=== PATIENT | male | born 2000 | race Caucasian/White ===

== ENCOUNTER 2020-09-06 10:26 | Inpatient (IN) | payer OTHER, SELFPAY ==
--- NOTE | ~2020-09-06 | CT_ITS ---
EXAMINATION: CT abdomen pelvis w con DATE: 09/06/2020 11:23 INDICATION: Right lower quadrant abdominal pain TECHNIQUE: Computed tomography (CT) of the abdomen and pelvis was performed with 100 mL Omnipaque-350 intravenous contrast. Automated exposure control and iterative reconstruction technique were employe d. The dose-length product was 341.42 mGy-cm. COMPARISON: None FINDINGS: Lung bases are clear. Heart size is normal. No pericardial or pleural effusion. Liver, gallbladder, s pleen, pancreas, bilateral adrenal glands and kidneys are normal. There is dilation of the ileum whic h measures up to maximal diameter 4.7 cm immediately proximal to a stricture involving the 12 cm carter th of the terminal ileum where there is prominent wall thickening and surrounding inflammatory strand ing likely representing Crohn's disease with secondary ileus and/or partial obstruction. Normal appen mary alice. Colon is unremarkable. Normal decompressed bladder. Small amount of likely reactive ascites in t he deep pelvis. No abscess or free intraperitoneal gas. Mild likely reactive mesenteric lymphadenopat hy. Small sclerotic bone island at the right ilium and likely benign small lucent lesion with periphe ral sclerotic margin at the lateral aspect of the left femoral head. IMPRESSION: 1. Terminal ileitis suspicious for Crohn's disease with secondary small bowel ileus and/or partial ob struction. 2. Small amount of likely reactive ascites in the pelvis. Reviewed, dictated and finalized at location A. ION HOUSEKEEPER IMPRESSION: 1. Terminal ileitis suspicious for Crohn's disease with secondary small bowel i leus and/or partial obstruction. 2. Small amount of likely reactive ascites in the pelvis.
--- NOTE | ~2020-09-06 | XR_ITS ---
EXAMINATION: XR abdomen obstructive series DATE: 09/07/2020 08:56 INDICATION: Partial small bowel obstruction. TECHNIQUE: Upright and supine views of the abdomen were obtained. COMPARISON: CT abdomen and pelvis 09/06/2020 FINDINGS: There are multiple dilated loops of small bowel. There is a large volume of stool in the co lauren, which is normal in caliber. No free intraperitoneal gas. IMPRESSION: 1. Dilated small bowel, consistent with small bowel obstruction. Reviewed, dictated and finalized at location B. RHAND
--- NOTE | ~2020-09-06 | XR_ITS ---
EXAMINATION: XR sm bowel follow through WS EXAM DATE: 09/08/2020 14:23 INDICATION: Crohn's disease. Ileitis. TECHNIQUE: [employer] Laboratory Assistant radiograph was acquired. Small bowel series was performed with water-soluble Omnip aque solution solution. Spot images of the terminal ileum were acquired. The DAP for this procedure was 26 Gycm2. Correlation is made to abdomen pelvis CT from 09/05/2020. FINDINGS: On the 30 minute image there is opacification of jejunum and portion of the ileum. The ileu m is moderately distended. On one hour image, further opacification of the ileum with multiple region s of mucosal irregularity. Contrast reached the ascending colon shortly thereafter, normal transit ti me. The terminal ileum has straightening and loss of normal rugal fold pattern consistent with termin al ileitis, provided history of Crohn's disease. IMPRESSION: Terminal ileitis, moderately distended ileum with mucosal irregularities. Appearance con sistent with Crohn's disease. Normal transit time 1-1.5 hours. Reviewed, dictated and finalized at location A. CONDITIONING INSULATION INSTALLER IMPRESSION: Terminal ileitis, moderately distended ileum with mucosal irregula rities. Appearance consistent with Crohn's disease. Normal transit time 1-1.5 h ours.
[2020-09-06 10:40] VITALS: BP 141/98; PULSE 112; RESP 18; TEMP 36.4; O2SAT 96
[2020-09-06 10:58] LABS: Basophils Percent Auto 0.2 % (0.2-1.2); Eosinophils Percent Auto 0.4 % (0-4.4); Hematocrit 39.9 % (42.0-52.0); Hemoglobin 13.1 g/dL (14.0-18.0); Immature Granulocyte Absolute 0.03 K/mm3 (0.00-0.031); Immature Granulocyte Percent A 0.3 % (0-0.5); Lymphocytes Absolute Auto 0.71 K/mm3 (0.9-3.2); Lymphocytes Percent Auto 7.6 % (18.3-44.2); Mean Corpuscular HGB Conc 32.8 g/dl (32-36); Mean Corpuscular Hemoglobin 27.1 pg (26-34); Mean Corpuscular Volume 82.4 fl (80-100); Monocytes Absolute Auto 1.5 K/mm3 (0.1-0.6); Monocytes Percent Auto 15.7 % (2.6-8.5); Neutrophils Absolute Auto 7.1 K/mm3 (1.3-6.7); Neutrophils Percent Auto 75.8 % (45.5-73.1); Platelet Count Result 369 k/mm3 (150-375); Red Blood Count 4.84 M/mm3 (4.6-6.20); Red Cell Distribution Width 15.7 % (11.5-14.5); White Blood Count 9.4 K/mm3 (4.5-10.0)
--- NOTE | 2020-09-06 10:58 | ED.ABDPAIN ---
HPI - Abdominal Pain General Chief Complaint: Abdominal Pain Stated Complaint: ABD Pain, Vomiting Time Seen by Provider: 09/06/20 10:35 Source: patient Mode of arrival: ambulatory Limitations: no limitations History of Present Illness HPI narrative: Patient is 20 year-old male complaining of right lower quadrant pain that started back at June have been intermittent, but became persistent last night up until this morning now accompanied by nausea vomiting. Patient states his pain is an 8 out of 10, nonradiating, sharp. Related Data Allergies Allergy/AdvReac Type Severity Reaction Status Date / Time amoxicillin Allergy Unknown Unknown Verified 09/06/20 11:59 [email or web address] Allergy Unknown Unknown Verified 09/06/20 11:59 Review of Systems Review of Systems: All systems reviewed & are unremarkable except as noted in HPI and below Constitutional: Constitutional: Denies body ache(s), Denies chills, Denies excessive sweating, Denies fatigue, Denies fever(s), Denies headache(s), Denies lethargy, Denies malaise, Denies weakness and Denies weight loss Eyes: Eyes: Denies blurry vision, Denies change in vision and Denies loss of vision ENT: Denies dizziness, Denies ear discharge, Denies headache(s), Denies lip swelling, Denies epistaxis, Denies nasal congestion, Denies neck pain, Denies throat swelling and Denies tongue swelling Cardiovascular: Cardiovascular: Denies chest pain, Denies chest pain at rest, Denies chest pain with activity, Denies diaphoresis, Denies rapid heart rate, Denies edema, Denies irregular heart rhythm, Denies lightheadedness, Denies palpitations, Denies dyspnea and Denies dyspnea on exertion Respiratory: Respiratory: Denies chest congestion, Denies cough, Denies hemoptysis, Denies dyspnea and Denies dyspnea on exertion Gastrointestinal: Gastrointestinal: Denies melena, Denies hematochezia, Denies diarrhea and Denies hematemesis Musculoskeletal: Musculoskeletal: Denies abnormal gait, Denies deformity, Denies joint swelling, Denies limited range of motion, Denies neck pain and Denies numbness Neurologic: Denies Abnormal speech present, Denies abnormal gait, Denies confusion, Denies dizziness, Denies headache(s), Denies focal weakness, Denies loss of vision, Denies numbness, Denies Other visual disturbances, Denies Sensory deficit (Neuro) and Denies weakness Psychiatric: Psychiatric: Denies confusion, Denies depression, Denies auditory hallucinations, Denies homicidal ideation and Denies suicidal ideation Endocrine: Endocrine: Denies cold intolerance, Denies excessive sweating, Denies fatigue, Denies heat intolerance and Denies palpitations Hematologic/Lymphatic: Hematologic/Lymphatic: Denies easy bleeding and Denies easy bruising Allergic/Immunologic: Allergic/Immunologic: Denies lip swelling, Denies throat swelling and Denies tongue swelling PMFSH Family History Family History Other Asthma Depression Family history of alcoholism Family history of bipolar disorder Family history of thyroid disease Social History Social History Smoking status: Never smoker Second hand tobacco smoke exposure: No Alcohol intake: current Gender identity (if verbalized by the patient): Male Exam Const: General: cooperative, healthy appearing, comfortable, no acute distress, well developed, alert and awake; No confusion Orientation/consciousness: oriented to person, oriented to place, oriented to time, patient oriented x3 and No confusion Limitations: no limitations HENMT: Head: normal to inspection, normocephalic and atraumatic Ears: hearing grossly normal bilaterally, TM normal on the right and TM normal on the left General nose exam: Normal external nose present, Normal nares present and No nasal discharge present Face and sinus: normal facial exam Mouth: Yes Normal oral and palatal mucosa present, Y
[2020-09-06 11:09] LABS: Alanine Aminotransferase 21 U/L (4-50); Albumin Level 4.1 g/dL (3.5-5.1); Alkaline Phosphatase 88 U/L (38-126); Anion Gap 12 mmol/L (8-16); Aspartate Amino Transferase 22 U/L (17-59); Blood Urea Nitrogen 17 mg/dL (9-20); Calcium 9.4 mg/dL (8.4-10.2); Carbon Dioxide 27 mmol/L (22-30); Chloride 101 mmol/L (98-107); Estimated CRCL calculation 145 ml/min; Estimated Glomerular Filt Rate > 60; Glucose 140 mg/dL (75-110); Lipase 24 U/L (23-300); Sodium 140 mmol/L (137-145)
[2020-09-06 11:17] LABS: Add Urine Microscopic? YES; Appearance Urine Clear (Clear); Bilirubin Urine 1+ (Negative); Blood Urine Negative (Negative); Color Urine Yellow (Yellow); Glucose Urine UA Negative (Negative); Ketones Urine 2+ mg/dL (Negative); Leukocyte Esterase Ur Negative LEU/UL (Negative); Mucus Urine Rare /lpf; Nitrate Urine Negative (Negative); Protein Urine 2+ mg/dL (Negative); WBC Urine 0-3 /hpf
[2020-09-06 11:21] LABS: Specific Grav Ur 1.033 (1.001-1.035)
[2020-09-06] MEDS: ONDANSETRON INJ 4 MG/2 ML VIAL IV PUSH ×3 (11:27→21:28)
[2020-09-06] MEDS: SODIUM CHLORIDE 0.9% IV 1,000 ML 999 ML IV CONT (11:27)
[2020-09-06 12:49] VITALS: BP 136/84; PULSE 94; RESP 17; O2SAT 98
[2020-09-06] MEDS: MORPHINE SULFATE (*CRX) 2 MG/ML INJ IV PUSH ×3 (12:49→21:29)
--- NOTE | 2020-09-06 13:48 | PM.IMHP ---
H&P: HPI History of Present Illness Date/Time: 09/06/20 13:48 Chief complaint: Terminal Ileitis/RLQ Pain/N/V Narrative: Joni Pretty is a 20 year old male who has no prior history of colitis. The patient has some acid reflux and was recently placed on pantoprazole. The patient does do with constipation on a daily basis and takes MiraLax and that does not always help either. Has not had any colonoscopies in the past. He does not have a GI specialist. The patient stated he was post to have workup and have some lab work but never did follow up with it. The patient is complaining of right lower quadrant pain that started back in June has been intermittent but became worse last night he was up all night till this morning he had some nausea and vomiting. His pain is 8/10. He has had no fever chills or cough. H&H is 13.[address] was read as terminal ileitis suspicious for Crohn's disease with secondary small-bowel ileus endorse partial obstruction. Small amount of likely reactive ascites in the pelvis. The only medication the patient has been on his Protonix. Consulted. Patient has been made NPO. He was given morphine in the emergency for the discomfort. On IV fluids, Zofran and morphine in the emergency room. Patient is being admitted as observation to medical floor date of service 09/06/2020. Review of Systems Review of Systems: All systems reviewed & are unremarkable except as noted in HPI and below Constitutional: Constitutional: Reports as per HPI and Reports no additional constitutional complaints Eyes: Eyes: Reports as per HPI and Reports no additional eye complaints ENT: Reports system reviewed and no additional complaints, except as documented and Reports Normal hearing present Cardiovascular: Cardiovascular: Reports no additional cardiovascular complaints Respiratory: Respiratory: Reports no additional respiratory complaints and Reports no additional respiratory complaints Gastrointestinal: Gastrointestinal: Reports as per HPI and Reports no additional gastrointestinal complaints Musculoskeletal: Musculoskeletal: Reports no additional musculoskeletal complaints Integumentary/Breasts: Skin/Breast: Reports system reviewed and no additional complaints, except as docu and Reports as per HPI Neurologic: Reports system reviewed and no additional complaints, except as documented, Reports as per HPI and Reports Normal hearing present Psychiatric: Psychiatric: Reports no additional psychiatric complaints and Reports as per HPI Endocrine: Endocrine: Reports no additional endocrine complaints Hematologic/Lymphatic: Hematologic/Lymphatic: Reports no additional hematologic/lymphatic complaints Allergic/Immunologic: Allergic/Immunologic: Reports no additional allergic/immunologic complaints PMFSH Past Medical History Medical History (Updated 09/06/20 @ 14:16 by Alma Loera NP) Chronic GERD Constipation Surgical History Surgical History (Updated 09/06/20 @ 14:11 by Alma Loera NP) Hx of tympanostomy tubes Family History Family History (Updated 09/06/20 @ 14:11 by Alma Loera NP) Mother Hypothyroidism Other Asthma Depression Family history of alcoholism Family history of bipolar disorder Family history of thyroid disease Social History Social History (Updated 09/06/20 @ 14:12 by Alma Loera NP) Social History: Patient is single no children. He lives with his parents. He desires to have his mom is a durable power workers compensation attorney for healthcare. The patient is a full code. Lifelong nonsmoker. No marijuana or illicit drugs. No alcohol use. He works at [employer]. Smoking status: Never smoker Second hand tobacco smoke exposure: No Alcohol intake: current Substance use: never Living arrangements: with family Occupation/Education: occupation Gender identity (if verbalized by the patient): Male Meds Home Medications and Al
[2020-09-06] MEDS: LACTATED RINGERS 1,000 ML 125 ML IV CONT ×2 (14:21→23:45)
[2020-09-06] MEDS: methylPREDNISolone SOD SUCC 125 MG VIAL 60 MG IV PUSH (14:22)
[2020-09-06 14:30] VITALS: BP 114/69; PULSE 106; RESP 16; TEMP 37.4; O2SAT 99; BMI 22.8
--- NOTE | 2020-09-06 14:30 | ADMGEN ---
This patient, Joni Pretty, was admitted to Medical Room 344-01. Patient/family oriented to hospital policies and general routines including ID bracelet, bed and alarms, visiting hours, pain management, procedures, bathroom and other care routines, personal items, smoking policy, room service/diet, and visiting hours. Reviewed MD orders and plan of care. Information on how to activate the Rapid Response Team has been discussed. Patient/Family are encouraged to report perceived risks to care and to ask questions if they do not understand what they are told or what they should do.
[2020-09-06] MEDS: metroNIDAZOLE 500 MG/ISO 100ML 500 MG/100 ML BAG 100 MG IVPB ×2 (15:11→22:36)
--- NOTE | 2020-09-06 16:41 | WPDGICN ---
Assessment and Plan Assessment and plan (1) Terminal ileitis: Qualifiers: Digestive disease complication type: unspecified complication Qualified Code(s): K50.019 - Crohn's disease of small intestine with unspecified complications Code(s): K50.00 - Crohn's disease of small intestine without complications Status: Acute Assessment and Plan: possible Crohns', will get inflammatory markers colonoscopy tomorrow to confirm diagnosis started empirically on iv steroid and flagyl, doing better now will get serology for TB and HBV status, may need later on biologic treatment, also will get TPMT activity (in case we use imuran) (2) Acute right lower quadrant pain: Code(s): R10.31 - Right lower quadrant pain Status: Acute (3) Partial small bowel obstruction: Code(s): K56.600 - Partial intestinal obstruction, unspecified as to cause Status: Acute Assessment and Plan: no more nausea or vomiting, continue with medical treatment and reassess (4) Chronic GERD: Code(s): K21.9 - Gastro-esophageal reflux disease without esophagitis Status: Chronic Assessment and Plan: he has been on ppi before (5) Constipation: Code(s): K59.00 - Constipation, unspecified Status: Chronic GI Consult Note Consult date/time: 09/06/20 16:41 Reason for consult: abdominal pain, abnormal TI by CT scan HPI: Joni Pretty is a 20 year old male with history of reflux for which he has taken protonix. He also has chronic constipation for years using miralax daily, will have one BM a day. He started having right lower quadrant pain back in June, intermittent but became worse last night and this time was associated with nausea and vomiting. His pain was 8/10. He has had no fever chills or cough. Blood work showed H&H is 13.1 and 39.3, normal liver enzymes. Abdominal CT was read as terminal ileitis suspicious for Crohn's disease with secondary small-bowel ileus endorse partial obstruction. Never had a colonoscopy. Mother is at bedside. Review of Systems Constitutional: Constitutional: Denies headache(s) and Denies weakness Eyes: Eyes: Denies blurry vision ENT: Reports Normal hearing present, Denies headache(s) and Denies neck pain Cardiovascular: Cardiovascular: Denies chest pain and Denies dyspnea Respiratory: Respiratory: Denies dyspnea Gastrointestinal: Gastrointestinal: Reports no additional gastrointestinal complaints Genitourinary: Genitourinary: Denies dysuria Musculoskeletal: Musculoskeletal: Denies neck pain Integumentary/Breasts: Skin/Breast: Denies dry skin Neurologic: Reports Normal hearing present, Denies headache(s) and Denies weakness Psychiatric: Psychiatric: Denies anxiety Endocrine: Endocrine: Denies change in body appearance Hematologic/Lymphatic: Hematologic/Lymphatic: Denies easy bleeding Allergic/Immunologic: Allergic/Immunologic: Denies urticaria PMFSH Past Medical History Medical History (Updated 09/06/20 @ 14:16 by Alma Loera NP) Chronic GERD Constipation Surgical History Surgical History (Updated 09/06/20 @ 14:11 by Alma Loera NP) Hx of tympanostomy tubes Family History Family History (Updated 09/06/20 @ 14:11 by Alma Loera NP) Mother Hypothyroidism Other Asthma Depression Family history of alcoholism Family history of bipolar disorder Family history of thyroid disease Social History Social History (Updated 09/06/20 @ 14:12 by Alma Loera NP) Social History: Patient is single no children. He lives with his parents. He desires to have his mom is a durable power testing projects administrator for healthcare. The patient is a full code. Lifelong nonsmoker. No marijuana or illicit drugs. No alcohol use. He works at [employer]. Smoking status: Never smoker Second hand tobacco smoke exposure: No Alcohol intake: never Substance use: never Substance use type: does n
[2020-09-06] MEDS: BISACODYL 5 MG TABLET EC 20 MG PO (17:39)
[2020-09-06] MEDS: PEG (High)/E-LYTE SOLN 4,000 ML BTL 4000 ML PO (17:39)
[2020-09-06] MEDS: FAMOTIDINE 20 MG/2 ML VIAL IV PUSH (20:22)
[2020-09-06 20:24] VITALS: BP 129/70; PULSE 89; RESP 14; TEMP 37; O2SAT 97
[2020-09-06] MEDS: MAGNESIUM CITRATE 300 ML BTL PO (23:31)
[2020-09-07] MEDS: ONDANSETRON INJ 4 MG/2 ML VIAL IV PUSH (04:16)
[2020-09-07] MEDS: MORPHINE SULFATE (*CRX) 2 MG/ML INJ IV PUSH (05:31)
[2020-09-07] MEDS: metroNIDAZOLE 500 MG/ISO 100ML 500 MG/100 ML BAG 100 MG IVPB ×3 (05:32→22:36)
[2020-09-07 05:48] VITALS: BP 120/73; PULSE 78; RESP 14; TEMP 36.3; O2SAT 100
[2020-09-07 05:52] LABS: Hematocrit 38.1 % (42.0-52.0); Hemoglobin 12.4 g/dL (14.0-18.0); Mean Corpuscular HGB Conc 32.5 g/dl (32-36); Mean Corpuscular Hemoglobin 26.3 pg (26-34); Mean Corpuscular Volume 80.9 fl (80-100); Mean Platelet Volume 9.2 fl (7.4-10.4); Platelet Count Result 425 k/mm3 (150-375); Red Blood Count 4.71 M/mm3 (4.6-6.20); Red Cell Distribution Width 15.6 % (11.5-14.5); White Blood Count 8.1 K/mm3 (4.5-10.0)
[2020-09-07 06:24] LABS: Alanine Aminotransferase 19 U/L (4-50); Albumin Level 3.8 g/dL (3.5-5.1); Alkaline Phosphatase 80 U/L (38-126); Anion Gap 12 mmol/L (8-16); Aspartate Amino Transferase 20 U/L (17-59); Bilirubin,Total 0.9 mg/dL (0.2-1.3); Blood Urea Nitrogen 18 mg/dL (9-20); Calcium 9.2 mg/dL (8.4-10.2); Carbon Dioxide 26 mmol/L (22-30); Chloride 100 mmol/L (98-107); Estimated CRCL calculation 166 ml/min; Estimated Glomerular Filt Rate > 60; Glucose 144 mg/dL (75-110); Lipase 16 U/L (23-300); Sodium 138 mmol/L (137-145)
[2020-09-07 06:51] LABS: Hepatitis B Surface Antigen Negative (Negative)
[2020-09-07 07:09] LABS: Hepatitis B Surface Anti Res Negative
[2020-09-07 08:11] LABS: CRP 13.8 mg/dL (<1.0)
[2020-09-07 08:52] LABS: Band Neutrophils Percent 40 % (0-6); Lymphocytes Absolute Manual 1.05 K/mm3 (1.1-4.5); Metamyelocytes Percent 5 %; Monocytes Absolute Manual 0.72 K/mm3 (0.1-0.90); Monocytes Percent Manual 9 % (3-9); Neutrophils Absolute Manual 5.91 K/mm3 (1.3-6.7); Neutrophils Percent Manual 33 % (46-73); Total Cells Counted 100
[2020-09-07] MEDS: FAMOTIDINE 20 MG/2 ML VIAL IV PUSH ×2 (09:05→20:59)
[2020-09-07] MEDS: methylPREDNISolone SOD SUCC 40 MG VIAL IV PUSH ×3 (09:06→22:36)
[2020-09-07] MEDS: LACTATED RINGERS 1,000 ML 125 ML IV CONT ×2 (09:09→17:38)
[2020-09-07 09:37] LABS: Erythrocyte Sedimentation Rate 32 mm/hr (0-20)
--- NOTE | 2020-09-07 12:00 | PM.CNGS ---
Assessment and Plan Assessment and plan (1) Partial small bowel obstruction: Code(s): K56.600 - Partial intestinal obstruction, unspecified as to cause Status: Acute Assessment and Plan: CT scan reviewed and discussed with the patient in detail. The CT suggests terminal ileitis causing a possible partial small bowel obstruction versus an ileus. The patient was not tolerating the bowel prep for his colonoscopy and had multiple episodes of vomiting. Abdominal films this morning showed multiple loops of dilated small bowel, suggesting a small bowel obstruction. He has since had three bowel movements and seems to be improving. Nausea has subsided and his abdominal exam is benign at this time. We will hold off on NG tube placement to see how he progresses. If he begins vomiting again, we could place an NG tube for decompression. Continue bowel rest, IV fluids, analgesics, and antiemetics. Continue IV steroids and IV antibiotics for the terminal ileitis as discussed below. We will continue to follow the patient with serial abdominal exams and imaging. (2) Terminal ileitis: Qualifiers: Digestive disease complication type: unspecified complication Qualified Code(s): K50.019 - Crohn's disease of small intestine with unspecified complications Code(s): K50.00 - Crohn's disease of small intestine without complications Status: Acute Assessment and Plan: CT suggests a stricture involving a 12 cm length of the terminal ileum where there is prominent wall thickening and surrounding inflammatory stranding causing #1 above. This is suspicious for Crohn's disease. GI has been consulted and ordered inflammatory markers. He is currently on IV steroids and IV antibiotics with clinical improvement. Awaiting timing of colonoscopy depending on how he progresses and is able to tolerate the bowel prep. (3) Constipation: Code(s): K59.00 - Constipation, unspecified Status: Chronic Assessment and Plan: Takes Miralax daily at home for this. Additional Plan Discussed the patient's case and plan of care with Dr. Beatty. Thank you for allowing us to see the patient in consultation and we will continue to follow along with you. History of Present Illness Consult details Consult date: 09/07/20 Reason for consult: other (Terminal ileitis with possible small bowel obstruction) Requesting physician: Norman Ochoa MD Narrative: This is a 20-year-old male who presented to the emergency department with complaints of abdominal pain and vomiting. The patient reports an onset of mild right lower quadrant abdominal pain starting in late June of 2020. He states he would also have bloating associated with the pain at times that resolved spontaneously. This abdominal pain would come and go about 1-2 times per week. He then went to see his primary care physician in July due to the persistent abdominal pain, and they prescribed him Protonix. He has not noticed a difference in his symptoms since starting this. He denies ever having this abdominal pain prior to June. 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 Shortly after, he began vomiting. He had multiple emesis at home and states the pain continued to worsen. Due to the unrelenting abdominal pain, he presented to the emergency department. CT scan of the abdomen and pelvis showed terminal ileitis, suspicious for Crohn's disease, with a secondary small bowel ileus or partial small bowel obstruction. Also noted was a small amount of likely reactive ascites. In the ED, he was tachycardic with a heart rate of 112, which has since resolved. The patient was admitted to the Hospitalist service and GI was consulted. The patient was started on IV steroids and IV Flagyl and apparently had an initial improvement in his symptoms. The patient began drinking bowel prep yesterday to plan for a
--- NOTE | 2020-09-07 13:31 | PM.IMPN ---
Progress Note: A&P Assessment and Plan (1) Terminal ileitis: Qualifiers: Digestive disease complication type: unspecified complication Qualified Code(s): K50.019 - Crohn's disease of small intestine with unspecified complications Code(s): K50.00 - Crohn's disease of small intestine without complications Status: Acute Assessment and Plan: GI has been consulted. This could possibly be Crohn's CT show terminal ileitis. NPO, IV FLUIDS, IV FLAGYL IV STEROIDS (2) Partial small bowel obstruction: Code(s): K56.600 - Partial intestinal obstruction, unspecified as to cause Status: Acute Assessment and Plan: GI and surgery rounding. Continue with pain medication and hydration. (3) Chronic GERD: Code(s): K21.9 - Gastro-esophageal reflux disease without esophagitis Status: Chronic Assessment and Plan: IV Pepcid (4) Constipation: Code(s): K59.00 - Constipation, unspecified Status: Chronic Assessment and Plan: Could be related to possible Crohn's disease or inflammatory bowel disease. Subjective Date/time seen: 09/07/20 13:31 Interval history: Joni Pretty is a 20 year old male who has no prior history of colitis. Found to have terminal ileitis suspicious for Crohn's disease with secondary small-bowel ileus endorse partial obstruction on CT scan. Pt was not able to tolerate bowel prep could not have colonscopy. GI and surgery on board. Pt still having diarrhea and abdominal cramps and nausea/ vomiting. Review of Systems Review of Systems: All systems reviewed & are unremarkable except as noted in HPI and below Exam Const: General: alert, awake and other (unwell appearing ) Nutritional Appearance: thin Orientation/consciousness: oriented to person, oriented to place, oriented to time and patient oriented x3 Limitations: no limitations Chest: Chest palpation & inspection: normal inspection of the chest Resp: Effort & Inspection: normal respiratory effort Auscultation: clear to auscultation bilaterally Percussion: percussion normal Cardio: Palpation: normal PMI Rate: regular rate Rhythm: regular rhythm Heart sounds: S1 normal heart sound present and S2 normal heart sound present Peripheral pulses: Peripheral pulses 2+ throughout GI: Inspection: normal to inspection GI Palp: Yes abdominal tenderness (left lower quardant cramps ) Back/Spine/Pelvis: Cervical Spine: cervical ROM normal Thoracic/Lumbar Spine: thoracic and lumbar spine normal to inspection Skin: General skin exam: normal color Lesions: no lesions Rashes: no rashes Trauma: no lacerations or abrasions Wounds: no wounds Hair: normal Nails: normal Objective Data Vital Signs Vital Signs: Vital Signs - 24 hr 09/06/20 14:30 09/06/20 20:24 09/07/20 05:48 Temperature 37.4 C 37.0 C 36.3 C L Pulse Rate 106 H 89 78 Respiratory Rate 16 14 14 Blood Pressure 114/69 129/70 120/73 Pulse Oximetry 99 97 100 Intake/Output Intake/Output: Intake & Output 09/04/20 09/05/20 09/06/20 09/07/20 23:59 23:59 23:59 23:59 Intake Total 2800 1400 Output Total 800 1200 Balance 2000 200 Meds/Results Medications: Active Medications Generic Name Dose Route Start Last Admin Trade Name Freq PRN Reason Stop Dose Admin Famotidine 20 mg 09/06/20 21:00 09/07/20 09:05 Famotidine 20 Mg/2 Ml Vial IV PUSH 20 mg Q12HR STAN Administration Lactated Ringer's 1,000 mls @ 125 mls/hr 09/06/20 12:45 09/07/20 09:09 Lr - Lactated Ringers Iv IV CONT 125 mls/hr .Q8H STAN Administration Metronidazole 500 mg in 100 mls @ 100 mls/hr 09/06/20 14:00 09/07/20 06:32 Flagyl 500 Mg/Iso Soln 100 Ml IVPB Infused Q8HR STAN Infusion Acetaminophen 1,000 mg in 100 mls @ 400 mls/hr 09/06/20 13:50 09/07/20 07:37 Ofirmev 1,000 Mg Ivpb IVPB 09/07/20 13:51 Infused Q6H PRN Infusion Mild Pain (1-3) or Fever Methylprednisolone Sodium Succinate 40 mg 09/07/20
[2020-09-07 14:00] VITALS: BP 106/59; PULSE 61; RESP 16; TEMP 36.2; O2SAT 100
[2020-09-07] MEDS: PEG (High)/E-LYTE SOLN 4,000 ML BTL 4000 ML PO (16:00)
--- NOTE | 2020-09-07 16:52 | WPDGIPROGNO ---
Progress Note: A&P Assessment and Plan (1) Terminal ileitis: Qualifiers: Digestive disease complication type: unspecified complication Qualified Code(s): K50.019 - Crohn's disease of small intestine with unspecified complications Code(s): K50.00 - Crohn's disease of small intestine without complications Status: Acute Assessment and Plan: plan colonoscopy tomorrow, will start drinking prep again tonight I increased dose of iv steroids, he is feeling better (2) Acute right lower quadrant pain: Code(s): R10.31 - Right lower quadrant pain Status: Acute (3) Partial small bowel obstruction: Code(s): K56.600 - Partial intestinal obstruction, unspecified as to cause Status: Acute Assessment and Plan: clinically better, surgery in the case Subjective Date/time seen: 09/07/20 16:52 Interval history: he was very nauseous last night after drinking bowel prep but today feeling much better, also started having loose stools about 5 with less abdominal pain. He is tolerating now liquid diet Review of Systems Review of Systems: All systems reviewed & are unremarkable except as noted in HPI and below Exam Const: General: comfortable and no acute distress HENMT: General nose exam: Normal nares present Eyes: General: appearance normal, both eyes and all related structures Neck: Neck: no JVD Resp: Auscultation: clear to auscultation bilaterally Cardio: Rate: regular rate Rhythm: regular rhythm GI: Inspection: non-distended GI Palp: Yes Soft to palpation, Yes Tenderness to palpation present (GI) (less tender today, no rebound) and No Guarding due to palpation present (GI) Auscultation: normal bowel sounds Skin: General skin exam: normal color Neuro: General: gait normal Speech: normal speech Extrem: General: normal to inspection Psych: Mental Status: mental status grossly normal Objective Data Vital Signs Vital Signs: Vital Signs - 24 hr 09/06/20 20:24 09/07/20 05:48 09/07/20 14:00 Temperature 98.6 F 97.3 F L 97.1 F L Pulse Rate 89 78 61 Respiratory Rate 14 14 16 Blood Pressure 129/70 120/73 106/59 L Pulse Oximetry 97 100 100 Intake/Output Intake/Output: Intake & Output 09/04/20 09/05/20 09/06/20 09/07/20 23:59 23:59 23:59 23:59 Intake Total 2800 1400 Output Total 800 1200 Balance 2000 200 Meds/Results Medications: Active Medications Generic Name Dose Route Start Last Admin Trade Name Mallory PRN Reason Stop Dose Admin Famotidine 20 mg 09/06/20 21:00 09/07/20 09:05 Famotidine 20 Mg/2 Ml Vial IV PUSH 20 mg Q12HR STAN Administration Lactated Ringer's 1,000 mls @ 125 mls/hr 09/06/20 12:45 09/07/20 09:09 Lr - Lactated Ringers Iv IV CONT 125 mls/hr .Q8H STAN Administration Metronidazole 500 mg in 100 mls @ 100 mls/hr 09/06/20 14:00 09/07/20 15:58 Flagyl 500 Mg/Iso Soln 100 Ml IVPB 100 mls/hr Q8HR STAN Administration Methylprednisolone Sodium Succinate 40 mg 09/07/20 06:00 09/07/20 16:00 Methylprednisolone Sod Succ 40 Mg Vial IV PUSH 40 mg Q8HR STAN Administration Morphine Sulfate 2 mg 09/06/20 13:46 09/07/20 05:31 Morphine Sulfate (*Crx) 2 Mg/Ml Inj IV PUSH 2 mg Q4H PRN Administration Pain Rated 7-10 Ondansetron HCl 4 mg 09/06/20 13:43 09/07/20 04:16 Ondansetron Inj 4 Mg/2 Ml Vial IV PUSH 4 mg Q6H PRN Administration Nausea And Vomiting Radiology Results: ITS Impressions Abdomen/Pelvis CT 09/06/20 11:24 IMPRESSION: 1. Terminal ileitis suspicious for Crohn's disease with secondary small bowel ileus and/or partial obstruction. 2. Small amount of likely reactive ascites in the pelvis. Abdomen X-Ray 09/07/20 09:01 IMPRESSION: 1. Dilated small bowel, consistent with small bowel obstruction. Labs Labs: Laboratory Results - last 24 hr 09/07/20 09/07/20 09/07/20 05:36 05:36 05:36 WBC 8.1 RBC 4.71 Hgb 12.4 L Hct 38.1 L
[2020-09-07 20:26] VITALS: BP 120/59; PULSE 75; RESP 12; TEMP 36.6; O2SAT 99
[2020-09-08] MEDS: LACTATED RINGERS 1,000 ML 125 ML IV CONT (02:15)
--- NOTE | 2020-09-08 04:41 | PC.NURSE ---
Multiple staff members have encouraged patient to drink bowel prep. However, patient still refusing for the most part. MD aware of situation.
[2020-09-08 06:00] VITALS: BP 104/50; PULSE 59; RESP 12; TEMP 36.4; O2SAT 100
[2020-09-08] MEDS: methylPREDNISolone SOD SUCC 40 MG VIAL IV PUSH ×3 (06:06→21:45)
[2020-09-08] MEDS: metroNIDAZOLE 500 MG/ISO 100ML 500 MG/100 ML BAG 100 MG IVPB ×3 (06:06→21:45)
--- NOTE | 2020-09-08 10:35 | WPDANESEPPF ---
Anes - Initial Pre Proc Eval Procedure: Operation Date: 09/08/20 11:00 Proposed Procedures p Colonoscopy - Norman Ochoa MD Date/Time: 09/08/20 10:35 Surgeon: Eamon Davenport MD Pre Op Diagnosis: Terminal Ileitis/RLQ Pain/N/V Patient Data Age: 20 Gender: M Height: 5 ft 9 in Weight: 70.307 kg Last Vital Signs Temp 36.4 C 09/08/20 06:00 Pulse 59 L 09/08/20 06:00 Resp 12 09/08/20 06:00 BP 104/50 L 09/08/20 06:00 Pulse Ox 100 09/08/20 06:00 Allergies Allergy/AdvReac Type Severity Reaction Status Date / Time amoxicillin Allergy Unknown Unknown Verified 09/06/20 15:28 cefdinir Allergy Unknown Unknown Verified 09/06/20 15:28 Home Medications Medication Instructions Recorded Confirmed Type pantoprazole 40 mg tablet,delayed 40 mg PO QAM #90 tablet 08/03/20 09/06/20 Rx release Patient hx anesthesia problems: none Family hx anesthesia problems: none PMFSH Past Medical History Medical History Chronic GERD Constipation Surgical History Surgical History Hx of tympanostomy tubes Family History Family History Mother Hypothyroidism Other Asthma Depression Family history of alcoholism Family history of bipolar disorder Family history of thyroid disease Social History Social History Social History: Patient is single no children. He lives with his parents. He desires to have his mom is a durable power assistant attorney general for healthcare. The patient is a full code. Lifelong nonsmoker. No marijuana or illicit drugs. No alcohol use. He works at an [employer]. Smoking status: Never smoker Second hand tobacco smoke exposure: No Alcohol intake: never Substance use: never Substance use type: does not use Living arrangements: with family Occupation/Education: occupation Gender identity (if verbalized by the patient): Male Spiritual care concerns: No Anes - Eval Final PreProcedure Day of Procedure 09/08/20 10:35 Patient weight: normal Heart: regular rate and rhythm Lungs: clear to auscultation Airway: Mallampati scale class II Neurological: alert and oriented Last oral intake: >/= 8 hours ASA classification: II Emergent: no Anesthetic plan: proceed Anesthesia type and monitoring: general GIVS and standard monitoring Informed Consent: The patient's anesthetic plan and its attendant risks and benefits were discussed with the patient/family/POA. Questions were solicited and answers provided to the satisfaction of the patient/family/POA.
[2020-09-08 10:45] VITALS: BP 126/68; PULSE 73; RESP 16; TEMP 36.6; O2SAT 96
[2020-09-08] MEDS: LACTATED RINGERS 1,000 ML 150 ML IV CONT (10:49)
[2020-09-08 11:30] VITALS: BP 84/32; PULSE 64; RESP 18; O2SAT 99
[2020-09-08 11:40] VITALS: BP 93/48; PULSE 58; RESP 19; O2SAT 99
[2020-09-08 11:50] VITALS: BP 105/59; PULSE 56; RESP 20; O2SAT 100
--- NOTE | 2020-09-08 12:20 | PM.IMPN ---
Progress Note: A&P Assessment and Plan (1) Terminal ileitis: Qualifiers: Digestive disease complication type: unspecified complication Qualified Code(s): K50.019 - Crohn's disease of small intestine with unspecified complications Code(s): K50.00 - Crohn's disease of small intestine without complications Status: Acute Assessment and Plan: GI has been consulted. colonscopy shows colitis. pT can eat continue, IV FLAGYL IV STEROIDS (2) Partial small bowel obstruction: Code(s): K56.600 - Partial intestinal obstruction, unspecified as to cause Status: Acute Assessment and Plan: GI and surgery rounding. Continue with pain medication and hydration. (3) Chronic GERD: Code(s): K21.9 - Gastro-esophageal reflux disease without esophagitis Status: Chronic Assessment and Plan: IV Pepcid (4) Constipation: Code(s): K59.00 - Constipation, unspecified Status: Chronic Assessment and Plan: Could be related to Crohn's disease . Subjective Date/time seen: 09/08/20 12:20 Interval history: Joni Pretty is a 20 year old male who has no prior history of colitis. Found to have terminal ileitis suspicious for Crohn's disease with secondary small-bowel ileus endorse partial obstruction on CT scan. Pt is going for colonscopy today showing crohns and hemorrhoids. Pt will need to continue iv steroids and needs a SBFT Review of Systems Review of Systems: All systems reviewed & are unremarkable except as noted in HPI and below Exam Const: General: alert, awake and other (unwell appearing ) Nutritional Appearance: thin Orientation/consciousness: oriented to person, oriented to place, oriented to time and patient oriented x3 Limitations: no limitations Chest: Chest palpation & inspection: normal inspection of the chest Resp: Effort & Inspection: normal respiratory effort Auscultation: clear to auscultation bilaterally Percussion: percussion normal Cardio: Palpation: normal PMI Rate: regular rate Rhythm: regular rhythm Heart sounds: S1 normal heart sound present and S2 normal heart sound present Peripheral pulses: Peripheral pulses 2+ throughout GI: Inspection: normal to inspection Back/Spine/Pelvis: Cervical Spine: cervical ROM normal Thoracic/Lumbar Spine: thoracic and lumbar spine normal to inspection Skin: General skin exam: normal color Lesions: no lesions Rashes: no rashes Trauma: no lacerations or abrasions Wounds: no wounds Hair: normal Nails: normal Neuro: General: oriented to person, oriented to place, oriented to time and patient oriented x3 Objective Data Vital Signs Vital Signs: Vital Signs - 24 hr 09/07/20 14:00 09/07/20 20:26 09/08/20 06:00 Temperature 36.2 C L 36.6 C 36.4 C Pulse Rate 61 75 59 L Respiratory Rate 16 12 12 Blood Pressure 106/59 L 120/59 L 104/50 L Pulse Oximetry 100 99 100 09/08/20 10:45 09/08/20 11:30 09/08/20 11:40 Temperature 36.6 C Pulse Rate 73 64 58 L Respiratory Rate 16 18 19 Blood Pressure 126/68 84/32 L 93/48 L Pulse Oximetry 96 99 99 09/08/20 11:50 Temperature Pulse Rate 56 L Respiratory Rate 20 Blood Pressure 105/59 L Pulse Oximetry 100 Intake/Output Intake/Output: Intake & Output 09/05/20 09/06/20 09/07/20 09/08/20 23:59 23:59 23:59 23:59 Intake Total 2800 3150 1400 Output Total 800 1200 1200 Balance 1999 1950 200 Meds/Results Medications: Active Medications Generic Name Dose Route Start Last Admin Trade Name Freq PRN Reason Stop Dose Admin Famotidine 20 mg 09/06/20 21:00 09/07/20 20:59 Famotidine 20 Mg/2 Ml Vial IV PUSH 20 mg Q12HR STAN Administration Lactated Ringer's 1,000 mls @ 125 mls/hr 09/06/20 12:45 09/08/20 02:15 Lr - Lactated Ringers Iv IV CONT 125 mls/hr .Q8H STAN Administration Metronidazole 500 mg in 100 mls @ 100 mls/hr 09/06/20 14:00 09/08/20 07:06 Flagyl 500 Mg/Iso Soln 100 Ml IVPB Infused Q8HR STAN I
--- NOTE | 2020-09-08 15:26 | PM.PNGS ---
Progress Note: A&P Assessment and Plan (1) Partial small bowel obstruction: Code(s): K56.600 - Partial intestinal obstruction, unspecified as to cause Status: Acute Assessment and Plan: Possible PSBO versus ileus - resolved. Colonoscopy today showed ileitis seen at the opening of the terminal ileum, biopsies were taken in the area of inflammation, the remaining colon was otherwise normal and biopsies were taken throughout the colon. SBFT showed terminal ileitis, moderately distended ileum with mucosal irregularities. Appearance consistent with Crohn's disease. Normal transit time 1-1.5 hours. Okay to slowly advance his diet as tolerated. Continue steroids and antibiotics per GI. We will sign off at this point. No surgical follow-up needed. Please let us know if there are any surgical needs in the future. (2) Terminal ileitis: Qualifiers: Digestive disease complication type: unspecified complication Qualified Code(s): K50.019 - Crohn's disease of small intestine with unspecified complications Code(s): K50.00 - Crohn's disease of small intestine without complications Status: Acute Assessment and Plan: See plan above. (3) Constipation: Code(s): K59.00 - Constipation, unspecified Status: Chronic Assessment and Plan: Would continue taking Miralax daily for constipation and follow-up with GI as recommended. Additional Plan Discussed the patient's case and plan of care with Dr. Beatty. Subjective Subjective Date/Time Seen: 09/08/20 15:26 Patient reports: no new complaints, feels better, flatus and bowel movement Interval history: Patient feeling well today. Was able to take in a portion of his bowel prep without vomiting and continued to have bowel movements. He has since had his colonoscopy and a small bowel follow through today. Currently denies abdominal pain, nausea, or bloating. Review of Systems Review of Systems: All systems reviewed & are unremarkable except as noted in HPI and below Constitutional: Constitutional: Denies fever(s) Gastrointestinal: Gastrointestinal: Reports as per HPI and Reports no additional gastrointestinal complaints Exam Const: General: no acute distress and awake Orientation/consciousness: patient oriented x3 GI: Inspection: normal to inspection and non-distended GI Palp: Yes Soft to palpation, No Tenderness to palpation present (GI), No Guarding due to palpation present (GI) and No Rebound tenderness present Auscultation: normal bowel sounds Skin: General skin exam: normal color Neuro: General: moves all extremities and no focal motor deficits Extrem: General: normal to inspection and no clubbing, cyanosis or edema Psych: Mental Status: mental status grossly normal Speech and movement: Normal speech and movement present Objective Data Vital Signs Vital Signs: Vital Signs - 24 hr 09/07/20 20:26 09/08/20 06:00 09/08/20 10:45 Temperature 97.9 F 97.6 F 97.9 F Pulse Rate 75 59 L 73 Respiratory Rate 12 12 16 Blood Pressure 120/59 L 104/50 L 126/68 Pulse Oximetry 99 100 96 09/08/20 11:30 09/08/20 11:40 09/08/20 11:50 Temperature Pulse Rate 64 58 L 56 L Respiratory Rate 18 19 20 Blood Pressure 84/32 L 93/48 L 105/59 L Pulse Oximetry 99 99 100 Intake/Output Intake/Output: Intake & Output 09/05/20 09/06/20 09/07/20 09/08/20 23:59 23:59 23:59 23:59 Intake Total 2800 3150 1400 Output Total 800 1200 1200 Balance 2000 1950 200 Meds/Results Medications: Active Medications Generic Name Dose Route Start Last Admin Trade Name Freq PRN Reason Stop Dose Admin Famotidine 20 mg 09/06/20 21:00 09/07/20 20:59 Famotidine 20 Mg/2 Ml Vial IV PUSH 20 mg Q12HR STAN Administration Metronidazole 500 mg in 100 mls @ 100 mls/hr 09/06/20 14:00 09/08/20 07:06 Flagyl 500 Mg/Iso Soln 100 Ml IVPB Infused Q8HR STAN Infusion Methylprednisolone Sodium Succinate 40 mg 09/07/20 06:00 08/29
[2020-09-08] MEDS: FAMOTIDINE 20 MG/2 ML VIAL IV PUSH ×2 (15:43→20:03)
[2020-09-08 21:03] VITALS: BP 107/64; PULSE 58; RESP 16; TEMP 36.3; O2SAT 100
[2020-09-09] MEDS: metroNIDAZOLE 500 MG/ISO 100ML 500 MG/100 ML BAG 100 MG IVPB ×2 (05:25→13:40)
[2020-09-09] MEDS: methylPREDNISolone SOD SUCC 40 MG VIAL IV PUSH (05:25)
[2020-09-09 05:50] LABS: Hematocrit 32.2 % (42.0-52.0); Hemoglobin 10.3 g/dL (14.0-18.0); Mean Corpuscular Hemoglobin 26.3 pg (26-34); Mean Corpuscular Volume 82.4 fl (80-100); Mean Platelet Volume 9.3 fl (7.4-10.4); Platelet Count Result 381 k/mm3 (150-375); Red Blood Count 3.91 M/mm3 (4.6-6.20); Red Cell Distribution Width 15.7 % (11.5-14.5); White Blood Count 5.5 K/mm3 (4.5-10.0)
[2020-09-09 05:54] LABS: Anion Gap 7 mmol/L (8-16); Blood Urea Nitrogen 12 mg/dL (9-20); Calcium 8.6 mg/dL (8.4-10.2); Carbon Dioxide 29 mmol/L (22-30); Chloride 105 mmol/L (98-107); Estimated CRCL calculation 144 ml/min; Estimated Glomerular Filt Rate > 60; Glucose 122 mg/dL (75-110); Potassium 4.2 mmol/L (3.4-5.0); Sodium 141 mmol/L (137-145)
[2020-09-09 05:58] VITALS: BP 123/71; PULSE 54; RESP 18; TEMP 36.1; O2SAT 100
--- NOTE | 2020-09-09 09:16 | WPDANESPN ---
Anes - Prog Note Post-Op Date/Time: 09/09/20 09:16 Cardiovascular status: normal Respiratory status: normal Airway patency: baseline Mental status: baseline Post-Op hydration status: normal Vital Signs: Last Vital Signs Temp 36.1 C L 09/09/20 05:58 Pulse 54 L 09/09/20 05:58 Resp 18 09/09/20 05:58 BP 123/71 09/09/20 05:58 Pulse Ox 100 09/09/20 05:58 Pain Score (VAS): 0 I/O: Intake & Output 09/08/20 09/09/20 09/09/20 23:59 07:59 15:59 Intake Total 980 450 Output Total 900 400 Balance 80 450 -400 Laboratory Tests 09/09/20 05:27 09/09/20 05:27 09/09/20 09/09/20 05:27 05:27 WBC 5.5 RBC 3.91 L Hgb 10.3 L Hct 32.2 L MCV 82.4 MCH 26.3 MCHC 32.0 RDW 15.7 H Plt Count 381 H MPV 9.3 Sodium 141 Potassium 4.2 Chloride 105 Carbon Dioxide 29 Anion Gap 7 L BUN 12 D Creatinine 0.70 Estim Creat Clear Calc 144 Estimated GFR > 60 Glucose 122 H Calcium 8.6 Post-procedural complaints: none Patient Feedback: Patient satisfied with anesthetic care.
[2020-09-09] MEDS: FAMOTIDINE 20 MG/2 ML VIAL IV PUSH (09:23)
--- NOTE | 2020-09-09 09:56 | WPDGIPROGNO ---
Progress Note: A&P Assessment and Plan (1) Crohn's disease of ileum: Code(s): K50.00 - Crohn's disease of small intestine without complications Status: Acute Assessment and Plan: findings of colonoscopy, blood work and clinical picture consistent with Crohn's ileitis. Ok to go home today, will need slow prednisone taper (40mg daily for a week, then decrease 5mg each week: ie 35, 30, 25, etc) with follow up in office in 3-4 weeks. Also once we had negative TB exposure (pending blood work) will submit to his insurance an order to start biologic (most likely remicade), explained to him that he definitely will need biologics given involvement of ileum and othe rmedications won't be as effective. (2) Partial small bowel obstruction: Code(s): K56.600 - Partial intestinal obstruction, unspecified as to cause Status: Acute Assessment and Plan: resolved, tolerating diet (3) Terminal ileitis: Qualifiers: Digestive disease complication type: unspecified complication Qualified Code(s): K50.019 - Crohn's disease of small intestine with unspecified complications Code(s): K50.00 - Crohn's disease of small intestine without complications Status: Acute (4) Constipation: Code(s): K59.00 - Constipation, unspecified Status: Chronic (5) Chronic GERD: Code(s): K21.9 - Gastro-esophageal reflux disease without esophagitis Status: Chronic Subjective Date/time seen: 09/09/20 09:56 Interval history: colonoscopy yesterday with normal colon but ileitis with stricture (unable to intubate TI) c/w Crohn's ileitis. No more abdominal pain and he has been eating, no nausea. Review of Systems Review of Systems: All systems reviewed & are unremarkable except as noted in HPI and below Exam Const: General: comfortable and no acute distress HENMT: General nose exam: Normal nares present Eyes: General: appearance normal, both eyes and all related structures Neck: Neck: no JVD Resp: Auscultation: clear to auscultation bilaterally Cardio: Rate: regular rate Rhythm: regular rhythm GI: Inspection: non-distended GI Palp: Yes Soft to palpation Skin: General skin exam: normal color Neuro: General: gait normal Speech: normal speech Extrem: General: normal to inspection Psych: Mental Status: mental status grossly normal Objective Data Vital Signs Vital Signs: Vital Signs - 24 hr 09/08/20 10:45 09/08/20 11:30 09/08/20 11:40 Temperature 97.9 F Pulse Rate 73 64 58 L Respiratory Rate 16 18 19 Blood Pressure 126/68 84/32 L 93/48 L Pulse Oximetry 96 99 99 09/08/20 11:50 09/08/20 21:03 09/09/20 05:58 Temperature 97.3 F L 97 F L Pulse Rate 56 L 58 L 54 L Respiratory Rate 20 16 18 Blood Pressure 105/59 L 107/64 123/71 Pulse Oximetry 100 100 100 Intake/Output Intake/Output: Intake & Output 09/06/20 09/07/20 09/08/20 09/09/20 23:59 23:59 23:59 23:59 Intake Total 2800 3150 3230 690 Output Total 800 1200 2100 400 Balance 2000 1950 1130 290 Meds/Results Medications: Active Medications Generic Name Dose Route Start Last Admin Trade Name Freq PRN Reason Stop Dose Admin Famotidine 20 mg 09/06/20 21:00 09/09/20 09:23 Famotidine 20 Mg/2 Ml Vial IV PUSH 20 mg Q12HR STAN Administration Metronidazole 500 mg in 100 mls @ 100 mls/hr 09/06/20 14:00 09/09/20 06:25 Flagyl 500 Mg/Iso Soln 100 Ml IVPB Infused Q8HR STAN Infusion Methylprednisolone Sodium Succinate 40 mg 09/07/20 06:00 09/09/20 05:25 Methylprednisolone Sod Succ 40 Mg Vial IV PUSH 40 mg Q8HR STAN Administration Morphine Sulfate 2 mg 09/06/20 13:46 09/07/20 05:31 Morphine Sulfate (*Crx) 2 Mg/Ml Inj IV PUSH 2 mg Q4H PRN Administration Pain Rated 7-10 Ondansetron HCl 4 mg 09/06/20 13:43 09/07/20 04:16 Ondansetron Inj 4 Mg/2 Ml Vial IV PUSH 4 mg Q6H PRN Administration Nausea And Vomiting Radiology Results: ITS Impression
--- NOTE | 2020-09-09 12:44 | PM.DS ---
DS: Admitting Diagnosis Admitting Diagnosis Admitting Diagnosis: Terminal Ileitis/RLQ Pain/N/V DS: Discharge Diagnosis Discharge Diagnosis (1) Terminal ileitis: Qualifiers: Digestive disease complication type: unspecified complication Qualified Code(s): K50.019 - Crohn's disease of small intestine with unspecified complications Code(s): K50.00 - Crohn's disease of small intestine without complications Status: Acute Assessment and Plan: -----patient presented with abdominal pain and CT scan showed terminal ileitis suspicious for Crohn's with secondary bowel ileus or partial obstruction. He was started on Flagyl and underwent a colonoscopy. Random biopsies from the large intestines did not have any evidence of colitis. The ileum biopsy showed ileal and colonic mucosa with edema and reactive epithelial changes with focal granulation tissue. No evidence crypt abscess, cryptitis, or dysplasia. It showed prominent mucosal lymphoid aggregates. He is going to follow up with GI outpt. (2) Partial small bowel obstruction: Code(s): K56.600 - Partial intestinal obstruction, unspecified as to cause Status: Acute Assessment and Plan: -----improved. see above (3) Chronic GERD: Code(s): K21.9 - Gastro-esophageal reflux disease without esophagitis Status: Chronic Assessment and Plan: -----continue home medications (4) Constipation: Code(s): K59.00 - Constipation, unspecified Status: Chronic Assessment and Plan: -----resolved DS: Summary Hospital Course Reason for hospitalization: Ileitis Hospital Course: Patient is a 20-year-old male who presented emergency room for right lower quadrant pain, nausea and vomiting found to have terminal ileitis. Vitals in the ER were temperature 36.4?, pulse 112, respiratory rate 18, blood pressure 141/98, pulse ox 96 on room air. Initial white blood cell count 9.4, hemoglobin 13.1, hematocrit 39.9, platelets 369. BMP within normal limits. Abdominal pelvis CT showed terminal ileitis suspicious for Crohn's disease with secondary small-bowel obstruction/partial obstruction with small amount of likely reactive ascites in the pelvis. Patient was admitted to the hospitalist service and started on Flagyl. He underwent a colonoscopy which is detailed above and saw GI. The patient improved throughout his stay and was ready for discharge. He was educated about the worrisome signs and symptoms come back to emergency room for and was discharged stable condition. To follow-up with GI and his primary care physician. He was educated not to drink alcohol while on Flagyl (although I did educate him not to drink alcohol at all since he is under 21) and to follow his prednisone taper as prescribed Status at Discharge Functional status at discharge: independent ambulation Overall status at discharge: patient is progressing back to baseline Time Spent with Patient Time attestation: Total time spent providing and/or coordinating discharge services:34 min Time spent: Greater than 30 minutes Exam Narrative: Exam Narrative: General: Well developed well nourished patient in NAD HEENT: normocephalic Neck: supple Neuro: Alert and oriented x4 CV:RRR Resp:CTA Abd: Soft, non distended. Slight pain to palpation of the right lower quadrant. Positive bowel sounds Extremities: No swelling, erythema, or pain to palpation. DS: Data Data Completed and Pending Pending studies at discharge: Pending at discharge 09/08/20 11:26 Surgical [PTH] Routine Labs on day of discharge: Labs from last 24 hours 09/09/20 09/09/20 05:27 05:27 WBC 5.5 RBC 3.91 L Hgb 10.3 L Hct 32.2 L MCV 82.4 MCH 26.3 MCHC 32.0 RDW 15.7 H Plt Count 381 H MPV 9.3 Sodium 141 Potassium 4.2 Chloride 105 Carbon Dioxide 29 Anion Gap 7 L BUN 12 D Creatinine 0.70 Estim Creat Clear Calc 144 Est
[2020-09-09 19:26] LABS: Hepatitis B Core Ab Total Nonreactive (Nonreactive)
[2020-09-10 12:07] LABS: NIL 0.01 IU/mL; Quantiferon TB Plus, 1T NEGATIVE (NEGATIVE); TB2-NIL 0.01 IU/mL
[2020-09-19 19:07] LABS: TPMT Activity 12
== END 2020-09-09 14:55 | disposition home or self-care (01) | DRG 387 ==
LOC: ANHED 10:48 → ANH3MED 13:46
PROVIDERS: Family Medicine; Internal Medicine Gastroenterology; Nurse Practitioner; Admitting Provider Family Medicine; Emergency Provider Emergency Medicine; PCP Family Medicine; Visit Provider Physician Assistant
PROC: 0DJD8ZZ Inspection of Lower Intestinal Tract, Via Natural or Artificial Opening Endoscopic (ICD-10-PCS; CPT 45378; principal; 2020-09-08 11:00)
DX: K50.012 Crohn's disease of small intestine with intestinal obstruction (principal); K21.9 Gastro-esophageal reflux disease without esophagitis; K59.00 Constipation, unspecified; K64.8 Other hemorrhoids; K62.89 Other specified diseases of anus and rectum; Z28.21 Immunization not carried out because of patient refusal; Z79.899 Other long term (current) drug therapy
CPT/HCPCS: 36415; 74019; 74177; 74250; 80048; 80053; 81001; 82657; 83690; 83735; 84443; 85025; 85027; 85652; 86140; 86480; 86704; 86706; 87340; 88305; 96361; 96365; 96366; 96374; 96375; 96376; 99285; A9270; G0378; J0131; J2001; J2270; J2405; J2704; J2920; J2930; J7030; J7120; Q9967

== ENCOUNTER 2020-10-11 01:07 | Inpatient (IN) | payer OTHER, SELFPAY ==
[2020-10-11] VITALS (8 sets, daily range): BP systolic 105–128; BP diastolic 56–88; PULSE 59–127; RESP 14–20; TEMP 36.4–37.1; O2SAT 96–100; BMI 22.6
--- NOTE | ~2020-10-11 | XR_ITS ---
EXAMINATION: XR abdomen NG/feed tube insert DATE: 10/11/2020 04:41 INDICATION: Small bowel obstruction. TECHNIQUE: A supine view of the abdomen was obtained. COMPARISON: CT abdomen and pelvis 10/11/2020 FINDINGS: The lower abdomen and right lateral aspect of the abdomen are excluded. There are multiple dilated loops of small bowel. The nasogastric tube tip is in the stomach. IMPRESSION: 1. Nasogastric tube tip in the stomach. 2. Dilated small bowel, consistent with small bowel obstruction. Reviewed, dictated and finalized at location A. CUTTER
--- NOTE | ~2020-10-11 | XR_ITS ---
EXAMINATION: XR abdomen obstructive series DATE: 10/12/2020 12:32 INDICATION: Small bowel obstruction. Crohn disease. TECHNIQUE: Upright and supine views of the abdomen on 3 radiographs were obtained. COMPARISON: Abdomen radiographs 10/11/2020 FINDINGS: There are no gas-filled dilated loops of small bowel. There is a large volume of stool in t he colon, which is normal in caliber. The nasogastric tube tip is in the stomach. No free intraperito binh gas. IMPRESSION: 1. Nonobstructive bowel gas pattern. Reviewed, dictated and finalized at location A. [employer]
--- NOTE | ~2020-10-11 | CT_ITS ---
EXAMINATION: CT abdomen pelvis w con DATE: 10/11/2020 03:01 INDICATION: Abdominal pain. Crohn disease. TECHNIQUE: Computed tomography (CT) of the abdomen and pelvis was performed with 100 mL Omnipaque 350 intravenous contrast. Automated exposure control and iterative reconstruction technique were employe d. The dose-length product was 516.25 mGy-cm. COMPARISON: CT abdomen and pelvis 09/06/2020 FINDINGS: The visualized portions of the lung bases are clear without pneumonia or pleural effusion. The heart size is normal. No pericardial effusion. The liver, gallbladder, spleen, pancreas, adrenal glands, and kidneys are normal. There is wall thickening and stricture of the terminal ileum spanning 15 cm. Small bowel is fluid-filled and dilated proximal to this area. There are no pathologically en larged lymph nodes. There is no free intraperitoneal fluid. There is mild thoracolumbar spondylosis. IMPRESSION: 1. Stricture of the terminal ileum with small bowel obstruction, consistent with Crohn disease. Reviewed, dictated and finalized at location A. [employer]CH[employer]ICIAN IMPRESSION: 1. Stricture of the terminal ileum with small bowel obstruction, consistent wit h Crohn disease.
[2020-10-11] MEDS: MORPHINE SULFATE (*CRX) 4 MG/ML INJ IV PUSH ×3 (01:46→05:45)
[2020-10-11] MEDS: ONDANSETRON INJ 4 MG/2 ML VIAL IV PUSH ×3 (01:47→05:45)
[2020-10-11 02:04] LABS: Basophils Absolute Auto 0.1 K/mm3 (0.0-0.1); Basophils Percent Auto 0.4 % (0.2-1.2); Eosinophils Absolute Auto 0.2 K/mm3 (0-0.3); Eosinophils Percent Auto 1.4 % (0-4.4); Hematocrit 46.1 % (42.0-52.0); Hemoglobin 14.8 g/dL (14.0-18.0); Immature Granulocyte Absolute 0.07 K/mm3 (0.00-0.031); Immature Granulocyte Percent A 0.4 % (0-0.5); Lymphocytes Absolute Auto 1.37 K/mm3 (0.9-3.2); Lymphocytes Percent Auto 8.2 % (18.3-44.2); Mean Corpuscular HGB Conc 32.1 g/dl (32-36); Mean Corpuscular Hemoglobin 27.4 pg (26-34); Mean Corpuscular Volume 85.2 fl (80-100); Mean Platelet Volume 9.6 fl (7.4-10.4); Monocytes Absolute Auto 1.3 K/mm3 (0.1-0.6); Monocytes Percent Auto 7.9 % (2.6-8.5); Neutrophils Absolute Auto 13.7 K/mm3 (1.3-6.7); Neutrophils Percent Auto 81.7 % (45.5-73.1); Platelet Count Result 411 k/mm3 (150-375); Red Blood Count 5.41 M/mm3 (4.6-6.20); Red Cell Distribution Width 18.4 % (11.5-14.5); White Blood Count 16.8 K/mm3 (4.5-10.0)
[2020-10-11 02:05] LABS: Alanine Aminotransferase 16 U/L (4-50); Albumin Level 4.6 g/dL (3.5-5.1); Alkaline Phosphatase 80 U/L (38-126); Anion Gap 12 mmol/L (8-16); Aspartate Amino Transferase 18 U/L (17-59); Bilirubin,Total 1.2 mg/dL (0.2-1.3); Blood Urea Nitrogen 20 mg/dL (9-20); Calcium 9.9 mg/dL (8.4-10.2); Carbon Dioxide 29 mmol/L (22-30); Chloride 98 mmol/L (98-107); Estimated Glomerular Filt Rate > 60; Glucose 162 mg/dL (75-110); Lipase 47 U/L (23-300); Potassium 3.8 mmol/L (3.4-5.0); Sodium 139 mmol/L (137-145)
[2020-10-11] MEDS: SODIUM CHLORIDE 0.9% IV 1,000 ML 999 ML IV CONT (02:24)
--- NOTE | 2020-10-11 03:06 | ED.ABDPAIN ---
HPI - Abdominal Pain General Chief Complaint: Abdominal Pain Stated Complaint: chrohns flair up Time Seen by Provider: 10/11/20 01:23 History of Present Illness HPI narrative: Patient is a 20-year-old male who presents ER with diffuse abdominal pain. Has history of Crohn's disease. Is currently on a prednisone taper. He follows with Dr. Ochoa. Pain started yesterday and is increased today. Associate with nausea and vomiting. Denies diarrhea. Reports decreased flatus and is belching more. No alleviating factors. Related Data Allergies Allergy/AdvReac Type Severity Reaction Status Date / Time amoxicillin Allergy Unknown Unknown Verified 10/11/20 01:14 cefdinir Allergy Unknown Unknown Verified 10/11/20 01:14 Review of Systems Review of Systems: All systems reviewed & are unremarkable except as noted in HPI and below Constitutional: Constitutional: Denies chills, Denies fever(s) and Denies weakness ENT: Denies nasal congestion and Denies sore throat Respiratory: Respiratory: Denies cough, Denies dyspnea and Denies wheezing Gastrointestinal: Gastrointestinal: Reports abdominal pain, Reports bloating, Denies diarrhea, Reports nausea and Denies vomiting Neurologic: Denies headache(s), Denies focal weakness and Denies numbness PMFSH Past Medical History Medical History (Updated 10/11/20 @ 04:10 by Marcial Richmond DO) Chronic GERD Constipation Crohn's disease of ileum Surgical History Surgical History Hx of tympanostomy tubes Family History Family History Mother Hypothyroidism Other Asthma Depression Family history of alcoholism Family history of bipolar disorder Family history of thyroid disease Social History Social History Social History: Patient is single no children. He lives with his parents. He desires to have his mom is a durable power workers compensation attorney for healthcare. The patient is a full code. Lifelong nonsmoker. No marijuana or illicit drugs. No alcohol use. He works at an [employer]. Smoking status: Never smoker Second hand tobacco smoke exposure: No Alcohol intake: never Substance use: never Substance use type: does not use Gender identity (if verbalized by the patient): Male Spiritual care concerns: No Exam Narrative: Exam Narrative: GENERAL: Well-appearing, well-nourished, and in no acute distress. HEAD: Normocephalic, atraumatic. ENT: Mucous membranes moist. CHEST: Clear to auscultation. No respiratory distress. HEART: Regular rate and rhythm. Normal peripheral pulses. ABDOMEN: Soft, mild diffuse tenderness, nondistended. EXTREMITIES: Normal range of motion. No edema. SKIN: Warm, dry, no rash. NEURO: Alert and oriented x3. PSYCH: Normal mood and affect. Course Course Emergency Course: GI consulted, recommends NG and solu-medrol 40mg. Admit to hospitalist, npo, fluids. Vital Signs Vital signs: Vital Signs Temperature 97.8 F 10/11/20 01:11 Pulse Rate 107 H 10/11/20 01:11 Respiratory Rate 14 10/11/20 01:11 Blood Pressure 126/78 10/11/20 01:11 Pulse Oximetry 100 10/11/20 01:11 Temperature 97.8 F 10/11/20 01:11 Pulse Rate 107 H 10/11/20 01:11 Respiratory Rate 14 10/11/20 01:11 Blood Pressure 126/78 10/11/20 01:11 Pulse Oximetry 100 10/11/20 01:11 MDM - Abdominal Pain Lab Data Result diagrams: 10/11/20 01:47 10/11/20 01:47 Labs: Lab Results 10/11/20 10/11/20 Range/Units 01:47 01:47 WBC 16.8 H (4.5-10.0) K/mm3 RBC 5.41 (4.6-6.20) M/mm3 Hgb 14.8 D (14.0-18.0) g/dL Hct 46.1 (42.0-52.0) % MCV 85.2 (80-100) fl MCH 27.4 (26-34) pg MCHC 32.1 (32-36) g/dl RDW 18.4 H (11.5-14.5) % Plt Count 411 H (150-375) k/mm3 MPV 9.6 (7.4-10.4) fl Immature G
--- NOTE | 2020-10-11 04:08 | PM.IMHP ---
H&P: HPI History of Present Illness Date/Time: 10/11/20 04:08 Chief complaint: SBO, crohn's flare Narrative: Joni Pretty is a 20 year old male with past medical history of Crohn's disease and GERD who presents to ED with complaints of nausea vomiting. Mother was bedside. Patient had a recent Crohn's flare admitted 09/06/2020-09/09/2020. Patient had colonoscopy with clinical picture consistent with Crohn's ileitis. He was put on a slow prednisone taper 40 mg daily per week to slowly decrease 5 mg each week as well as Flagyl antibiotic for 3 days. Primary GI doctor Dr. Fung was considering starting him on Remicade pending insurance approval and TB test. Patient admits to adhering to his steroid taper. In the ED: CT abdomen pelvis consistent with small-bowel obstruction terminal ileum transition point. Consulting Dr. Fung GI. Increase patient's steroids 40 mg Solu-Medrol daily. NG tube placed for decompression. Patient admitted for small-bowel obstruction and Crohn's flare. Date of service 10/11/2020. Review of Systems Review of Systems: Narrative: Constitutional: No Fever, No Chills, No Night Sweats, No Fatigue, No Malaise ENT/Mouth: No Hearing Changes, No Ear Pain, No Nasal Congestion, No Sinus Pain, No Hoarseness, No sore throat, No Rhinorrhea, No Swallowing Difficulty Eyes: No Eye Pain, No Redness, No Vision Changes Cardiovascular: No Chest Pain, No Palpitations, No Dyspnea on Exertion, No Orthopnea, No Claudication, No Edema Respiratory: No Cough, No Sputum, No Wheezing, No Shortness of Breath Gastrointestinal: Nausea/vomiting/abdominal pain. Admits chronic constipation. Denies diarrhea. Genitourinary: No Dysuria, No Urinary Frequency, No Hematuria, No Urinary Incontinence, No Urgency Musculoskeletal: No Arthralgias, No Myalgias, No Joint Swelling, No Joint Stiffness, No Back Pain Skin: No Skin Lesions, No Pruritis, No Hair Changes Neuro: No Weakness, No Numbness, No Paresthesias, No Loss of Consciousness, No Syncope, No Dizziness, No Headache Psych: No Anxiety/Panic, No Depression, No Insomnia Heme: No Bruising, No Bleeding Lymph: No Adenopathy Endocrine: No Polyuria, No Polydipsia, No Temperature Intolerance [facility] Past Medical History Medical History Chronic GERD Constipation Crohn's disease of ileum Surgical History Surgical History Hx of tympanostomy tubes Family History Family History Mother Hypothyroidism Other Asthma Depression Family history of alcoholism Family history of bipolar disorder Family history of thyroid disease Social History Social History Social History: Patient is single no children. He lives with his parents. He desires to have his mom is a durable power transactional attorney for healthcare. The patient is a full code. Lifelong nonsmoker. No marijuana or illicit drugs. No alcohol use. He works at an [employer]. Smoking status: Never smoker Second hand tobacco smoke exposure: No Alcohol intake: never Substance use: never Substance use type: does not use Gender identity (if verbalized by the patient): Male Spiritual care concerns: No Meds Home Medications and Allergies Home Medications Medication Instructions Recorded Confirmed Type pantoprazole 40 mg tablet,delayed 40 mg PO QAM #90 tablet 08/03/20 09/06/20 Rx release metronidazole [Flagyl] 500 mg PO Q8H 3 Days #9 tablet 09/09/20 Rx prednisone 5 mg PO DIRECTED #252 tablet 09/09/20 Rx Allergies Allergy/AdvReac Type Severity Reaction Status Date / Time amoxicillin Allergy Unknown Unknown Verified 10/11/20 01:14 cefdinir Allergy Unknown Unknown Verified 10/11/20 01:14 Vital Signs Vital Signs - 24 hr 10/11/20 01:11 Temperatu
[2020-10-11] MEDS: methylPREDNISolone SOD SUCC 40 MG VIAL IV PUSH ×2 (04:16→08:46)
[2020-10-11] MEDS: SODIUM CHLORIDE 0.9% IV 1,000 ML 125 ML IV CONT ×3 (05:45→20:21)
--- NOTE | 2020-10-11 07:40 | ADMGEN ---
At 0530 on 10/11/2020, This patient, Joni Pretty, was admitted to 3 [facility] Surg Room 320-01. Patient/family oriented to hospital policies and general routines including ID bracelet, bed and alarms, visiting hours, pain management, procedures, bathroom and other care routines, personal items, smoking policy, room service/diet, and visiting hours. Information on how to activate the Rapid Response Team has been discussed. Patient/Family are encouraged to report perceived risks to care and to ask questions if they do not understand what they are told or what they should do.
--- NOTE | 2020-10-11 08:15 | PC.NURSE ---
Received patient from 3rd med/surg via wheelchair with RN. Patient settled in room. NGT to LIS. Patient denies pain or distress. When asked about pain, he only points to this throat and when asked if it is discomfort from the NG tube, he nods yes. Denies nausea or other discomfort.
[2020-10-11] MEDS: PANTOPRAZOLE SODIUM IV 40 MG VIAL IV PUSH (08:46)
--- NOTE | 2020-10-11 12:16 | PM.CNGS ---
Assessment and Plan Assessment and plan (1) Small bowel obstruction: Code(s): K56.609 - Unspecified intestinal obstruction, unspecified as to partial versus complete obstruction Status: Acute Assessment and Plan: CT scan reviewed and discussed with the patient in detail. CT suggests that there is a small bowel obstruction secondary to a 15 cm segment of the terminal ileum with wall thickening and stricture. This is the same area of concern from his previous hospitalization. The patient is already showing clinical improvement this morning. We will try to initially treat this conservatively with NG tube decompression, IV fluids, bowel rest, analgesics, and treatment of the Crohn's flare-up. GI has been consulted and will await their recommendations. If he does not improve with conservative treatment, then we may have to consider surgical resection. Thank you for allowing us to see the patient in consultation and we will continue to follow along with you. (2) Crohn's disease of ileum: Qualifiers: Digestive disease complication type: with intestinal obstruction Qualified Code(s): K50.012 - Crohn's disease of small intestine with intestinal obstruction Code(s): K50.00 - Crohn's disease of small intestine without complications Status: Acute Assessment and Plan: Continue with conservative measures as mentioned above. IV steroids and further management per GI. (3) Chronic GERD: Code(s): K21.9 - Gastro-esophageal reflux disease without esophagitis Status: Chronic Additional Plan Discussed the patient's case and plan of care with Dr. Rodas. History of Present Illness Consult details Consult date: 10/11/20 Reason for consult: other (Small bowel obstruction with stricture of the terminal ileum) Requesting physician: Norman Ochoa MD Narrative: This is a 20-year-old male with a history of Crohn's disease, who presented to the emergency department overnight with complaints of abdominal pain, nausea, and vomiting. He was previously admitted on 09/07/20 with terminal ileitis and partial small bowel obstruction, when he was treated by Gastroenterology with steroids and antibiotics. Colonoscopy was performed on 09/08/20 with findings and clinical picture consistent with Crohn's. There was a significant stricture of the terminal ileum, but he was able to tolerate a diet and eventually discharged home with a prednisone taper and follow-up with GI. Reportedly, they were in the process of trying to get the patient started on biologic therapy. He then had an onset of generalized abdominal pain starting yesterday. The patient called his Outsole [employer] and was started on steroids. He then developed bloating, nausea, and vomiting around 9 pm last night. The abdominal pain continued to worsen and he eventually presented to the emergency department for further evaluation. CT scan of the abdomen and pelvis showed wall thickening and stricture of the terminal ileum spanning 15 cm, with a small bowel obstruction, consistent with Crohn's disease. The patient was admitted and Gastroenterology was consulted. NG tube was placed and patient made NPO. Our service was then consulted for surgical evaluation for a terminal ileum stricture with small bowel obstruction. The patient is now seen on the medical floor. His main complaint at this time is the discomfort of the NG tube. He reports resolution of his abdominal pain and nausea. Bloating has improved. Reports small amount of flatus today and his last BM was yesterday prior to the onset of vomiting. No other complaints at this time. Review of Systems Constitutional: Constitutional: Reports as per HPI, Denies chills, Denies excessive sweating, Denies fatigue, Denies fever(s), Denies headache(s) and Denies weakness Eyes: Eyes: Denies change in vision and Denies loss of vision ENT: Reports Normal hearing present, Denies dizziness and Denies headache(s) Ca
--- NOTE | 2020-10-11 14:27 | PM.IMPN ---
Progress Note: A&P Assessment and Plan (1) Crohn's disease of ileum: Qualifiers: Digestive disease complication type: with intestinal obstruction Qualified Code(s): K50.012 - Crohn's disease of small intestine with intestinal obstruction Code(s): K50.00 - Crohn's disease of small intestine without complications Status: Acute Assessment and Plan: Colonoscopy 09/08 was consistent with Crohn's ileitis. Patient appears to have Crohn's flare not resolving with steroid taper affecting the same region of the terminal ileum as last flare for which he was hospitalized 09/06-09/09/20. He is in the process of trying to get started on biologic therapy. Gastroenterology has been consulted and recommendations are appreciated. He is established with Dr. Fung. Continue Solu-Medrol 40 mg daily, increased from taper. Leukocytosis noted secondary to steroids. Analgesics and antiemetics as needed for pain IV Protonix for GI prophylaxis while on steroids and with NG tube (2) Small bowel obstruction: Code(s): K56.609 - Unspecified intestinal obstruction, unspecified as to partial versus complete obstruction Status: Acute Assessment and Plan: CT suggests that there is a small bowel obstruction secondary to a 15 cm segment of the terminal ileum with wall thickening and stricture. Likely secondary to Crohn's flare. Pain has improved. General surgery has been consulted and recommendations are appreciated. Continue NG tube decompression IV fluids at 125 ml/hr Subjective Date/time seen: 10/11/20 14:27 Interval history: date of service: 10/11/2020 Joni pretty is a 20-year-old male with a history of Crohn's disease and chronic GERD who is seen in follow-up for small bowel obstruction. he is resting comfortably. He does not respond to me verbally. He indicates that his throat is very sore from the NG tube and he is not able to talk. I asked him many questions and he nodded his head with either yes or no. He denies abdominal pain or cramping. His last bowel movement was yesterday. He has not passed gas. He denies nausea or vomiting. He denies fever, chills, dizziness, lightheadedness, weakness, shortness of breath, or cough. He denies any urinary issues. He denies headaches or body aches. He reports that he feels comfortable. he has declined Chloraseptic spray to soothe his throat. The only time he spoke verbally was to ask for an ice pack. He was not able to indicate where/what he wanted the ice pack for. With the patient's permission, I spoke with his mom via phone to answer questions and provide updates. Review of Systems Review of Systems: All systems reviewed & are unremarkable except as noted in HPI and below Exam Narrative: Exam Narrative: Mr. Pretty is a well-nourished 20-year-old male who is lying supine in bed. He appears comfortable and is in NARD. HR 100, BP 110/68, R 20, T 98.8?, 98% on room air Neuro: awake, does not respond to questions verbally, no focal neuro deficits noted HEENMT: normocephalic, atraumatic, EOMI, sclerae anicteric, moist oral mucosa, tongue midline, nares patent, NG tube adhered to nare Neck: supple, no lymphadenopathy Respiratory: clear to auscultation bilaterally, nonlabored breathing Cardio: regular rate, regular rhythm with S1-S2 Abdomen: nondistended, normoactive bowel sounds, soft, nontender to palpation, no rigidity or guarding Extremities: no edema, erythema, cyanosis, clubbing, or tenderness to palpation, DP pulses 2+ bilaterally Skin: no rashes or lesions, warm and dry Psych: appropriate mood and affect, judgment and insight intact Objective Data Vital Signs Vital Signs: Vital Signs - 24 hr 10/11/20 01:11 10/11/20 03:00 10/11/20 05:05 Temperature 97.8 F Pulse Rate 107 H 88 127 H Respiratory Rate 14 15 20 Blood Pressure 126/78 127/88 105/73 Pulse Oximetry 100 99 98 10/11/20 05:30 10/11/20 06:03 Temperature 9
--- NOTE | 2020-10-11 16:23 | PC.NURSE ---
Offered chloraseptic spray for sorethroat but patient declined. Patient states IV Ofirmev did help a little. Utilizing ice pack to throat also.
--- NOTE | 2020-10-11 17:34 | WPDGICN ---
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 and I do not know if will even respond to biologics surgery on board, he may need surgery if does not respond to medical treatment in next 1-2 days given length of stricture and edema in TI (last time unable to advance colonoscope into ileum) definitely even if he has surgery, will need to be on biologics now that his TB and HBV status non-reactive- will follow up with his insurance and hopefully he can be on it sooner rather than later (2) Small bowel obstruction: Code(s): K56.609 - Unspecified intestinal obstruction, unspecified as to partial versus complete obstruction Status: Acute Assessment and Plan: npo, ngt, surgery on board (3) Nausea and vomiting in adult: Code(s): R11.2 - Nausea with vomiting, unspecified Status: Acute GI Consult Note Consult date/time: 10/11/20 17:34 Reason for consult: crohn's disease HPI: Joni Pretty is a 20 year old male with recent hospitalization last month when I met him and diagnosed with stricture ileitis due to Crohn's disease (confirmed by colonoscopy- his colon bx normal), he was discharged with slow prednisone taper and we were on the process of waiting insurance approval to start biologics (Hepatitis B and TB test were negative). He came with worsening abdominal pain. Patient admits to adhering to his steroid taper. He developed bloating, nausea, and vomiting last night. Had CT scan of the abdomen and pelvis showed wall thickening and stricture of the terminal ileum spanning 15 cm, with a small bowel obstruction, consistent with Crohn's disease. Placed NGT, npo status and given iv steroids. Also evaluated by surgery. Review of Systems Constitutional: Constitutional: Denies chills Eyes: Eyes: Reports no additional eye complaints ENT: Reports system reviewed and no additional complaints, except as documented Cardiovascular: Cardiovascular: Denies chest pain Respiratory: Respiratory: Denies dyspnea Gastrointestinal: Gastrointestinal: Reports abdominal pain, Reports nausea and Reports vomiting Genitourinary: Genitourinary: Denies dysuria Musculoskeletal: Musculoskeletal: Denies neck pain Integumentary/Breasts: Skin/Breast: Denies skin pain Neurologic: Denies confusion Psychiatric: Psychiatric: Reports no additional psychiatric complaints [facility] Past Medical History Medical History Chronic GERD Crohn's disease of ileum Surgical History Surgical History Hx of tympanostomy tubes Family History Family History Mother Hypothyroidism Other Asthma Depression Family history of alcoholism Family history of bipolar disorder Family history of thyroid disease Social History Social History Social History: Patient is single no children. He lives with his parents. He desires to have his mom is a durable power employment law attorney for healthcare. The patient is a full code. Lifelong nonsmoker. No marijuana or illicit drugs. No alcohol use. He works at an [employer]. Smoking status: Never smoker Second hand tobacco smoke exposure: No Alcohol intake: never Substance use: never Substance use type: does not use Gender identity (if verbalized by the patient): Male Spiritual care concerns: No Meds Home Medications and Allergies Home Medic
[2020-10-12] VITALS: BP 116/70; PULSE 72; RESP 20; TEMP 36.6; O2SAT 99
[2020-10-12 04:00] VITALS: BP 121/75; PULSE 78; RESP 18; TEMP 36.8; O2SAT 100
[2020-10-12] MEDS: SODIUM CHLORIDE 0.9% IV 1,000 ML 125 ML IV CONT ×3 (05:32→22:51)
[2020-10-12 05:47] LABS: Hematocrit 36.5 % (42.0-52.0); Hemoglobin 11.8 g/dL (14.0-18.0); Mean Corpuscular HGB Conc 32.3 g/dl (32-36); Mean Corpuscular Hemoglobin 27.4 pg (26-34); Mean Corpuscular Volume 84.9 fl (80-100); Mean Platelet Volume 9.4 fl (7.4-10.4); Platelet Count Result 318 k/mm3 (150-375); Red Cell Distribution Width 17.4 % (11.5-14.5); White Blood Count 9.2 K/mm3 (4.5-10.0)
[2020-10-12 06:02] LABS: Anion Gap 5 mmol/L (8-16); Blood Urea Nitrogen 10 mg/dL (9-20); Calcium 8.8 mg/dL (8.4-10.2); Carbon Dioxide 30 mmol/L (22-30); Chloride 105 mmol/L (98-107); Estimated CRCL calculation 147 ml/min; Estimated Glomerular Filt Rate > 60; Glucose 98 mg/dL (75-110); Potassium 3.7 mmol/L (3.4-5.0); Sodium 140 mmol/L (137-145)
--- NOTE | 2020-10-12 08:43 | PM.IMPN ---
Progress Note: A&P Assessment and Plan (1) Crohn's disease of ileum: Qualifiers: Digestive disease complication type: with intestinal obstruction Qualified Code(s): K50.012 - Crohn's disease of small intestine with intestinal obstruction Code(s): K50.00 - Crohn's disease of small intestine without complications Status: Acute Assessment and Plan: Colonoscopy 09/08 was consistent with Crohn's ileitis. Patient appears to have Crohn's flare not resolving with steroid taper affecting the same region of the terminal ileum as last flare for which he was hospitalized 09/06-09/09/20. He is in the process of trying to initiate biologic therapy. Gastroenterology has been consulted and recommendations are appreciated. He is established with Dr. Fung. Continue Solu-Medrol 40 mg daily, increased from taper. Leukocytosis noted secondary to steroids. Analgesics and antiemetics as needed for pain IV Protonix for GI prophylaxis while on steroids and with NG tube Per GI, due to fibrostenotic disease, he may not respond to biologics and may require surgery depending on clinical course. (2) Small bowel obstruction: Code(s): K56.609 - Unspecified intestinal obstruction, unspecified as to partial versus complete obstruction Status: Acute Assessment and Plan: CT suggests that there is a small bowel obstruction secondary to a 15 cm segment of the terminal ileum with wall thickening and stricture. Likely secondary to Crohn's flare. Pain has improved and he is passing flatus. General surgery has been consulted and recommendations are appreciated. He may benefit from ileo-cecetomy due to stricture and recurrent SBP despite medical management. Appreciate GI and general surgery input. Continue NG tube decompression IV fluids at 125 ml/hr Subjective Date/time seen: 10/12/20 08:43 Mr. Pretty is a 20 y.o. 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 He will not speak much to me today but does nod yes and no to questioning. He relates that he started passing flatus yesterday evening. He notes that is throat is sore due to the NG tube and this is why he does not want to speak. He has not had any bowel movements since 10/10. He reports no significant abdominal pain. He denies subjective fever and chills. He denies chest pain and dyspnea. He has no other concerns or requests at this time. Review of Systems Review of Systems: All systems reviewed & are unremarkable except as noted in HPI and below Exam Narrative: Exam Narrative: General: Well-developed and well-nourished 20 y.o. male lying semi-recumbent in bed in no acute distress. HEENT: Normocephalic and atraumatic. Scleare anicteric. Conjunctivae and lids without injection or exudate. EOMI. Oral mucosa dry. NG tube in place. Posterior pharynx has no injection or exudate. Neck: Supple. Cardiac: Regular rate and rhythm. S1 and S2 normal. No murmur appreciated. Lungs: Respirations are even and non-labored. Lungs are clear to auscultation bilaterally. Abdomen: Bowel sounds are somewhat hypoactive. Abdomen is soft, non-distended, and non-tender. No guarding or rebound tenderness. Extremities: No lower extremity edema or calf tenderness. DP and PT 2+. Neurological: Alert. Exam non-focal. Will not respond verbally but does communicate through nodding. Skin: Warm and dry. Psychiatric: Judgment and insight intact. Pt is somewhat withdrawn. Objective Data Vital Signs Vital Signs: Vital Signs - 24 hr 10/11/20 13:50 10/11/20 18:51 10/11/20 20:00 Temperature 97.8 F 97.5 F L 97.9 F Pulse Rate 73 70 59 L Respiratory Rate 18 18 18 Blood Pressure 110/56 L 111/64 128/72 Pulse Oximetry 97 100 96 10/12/20 00:00 10/12/20 04:00 Temperature 97.9 F 98.2 F Pulse Rate 72 78 Respiratory Rate 20 18 Blood Pressure 116/70 1
[2020-10-12] MEDS: PANTOPRAZOLE SODIUM IV 40 MG VIAL IV PUSH (08:56)
[2020-10-12] MEDS: methylPREDNISolone SOD SUCC 40 MG VIAL IV PUSH (08:57)
[2020-10-12 10:00] VITALS: BP 123/76; PULSE 64; RESP 16; TEMP 36.7; O2SAT 98
--- NOTE | 2020-10-12 13:25 | PM.PNGS ---
Progress Note: A&P Assessment and Plan (1) Crohn's disease of ileum: Qualifiers: Digestive disease complication type: with intestinal obstruction Qualified Code(s): K50.012 - Crohn's disease of small intestine with intestinal obstruction Code(s): K50.00 - Crohn's disease of small intestine without complications Status: Acute Assessment and Plan: Patient continues to have intermittent obstructions secondary to a stricture of his terminal ileum. This seems likely to be a continuing problem and will most likely require surgery. I have discussed this with the patient and his mother. X-ray looks improved today, so I think we can safely remove the NG tube and start some clear liquids. I will try to slowly prep his bowels over the next 2 days in preparation for surgery. Surgery will likely need to be delayed until or Sunday this week due to overwhelmed surgery schedule secondary to COVID. Other option would be to discharge home and plan surgery for 1-2 weeks from now. (2) Partial small bowel obstruction: Code(s): K56.600 - Partial intestinal obstruction, unspecified as to cause Status: Acute Subjective Subjective Date/Time Seen: 10/12/20 13:25 Passing flatus. No abdominal pain, no bloating. Hasn't had a BM since being here. Exam GI: Inspection: normal to inspection and non-distended GI Palp: Yes Soft to palpation, No Tenderness to palpation present (GI) and No Guarding due to palpation present (GI) Percussion: Yes normal to percussion Auscultation: Hypoactive bowel sounds present Objective Data Vital Signs Vital Signs: Vital Signs - 24 hr 10/11/20 13:50 10/11/20 18:51 10/11/20 20:00 Temperature 36.6 C 36.4 C L 36.6 C Pulse Rate 73 70 59 L Respiratory Rate 18 18 18 Blood Pressure 110/56 L 111/64 128/72 Pulse Oximetry 97 100 96 10/12/20 00:00 10/12/20 04:00 10/12/20 10:00 Temperature 36.6 C 36.8 C 36.7 C Pulse Rate 72 78 64 Respiratory Rate 20 18 16 Blood Pressure 116/70 121/75 123/76 Pulse Oximetry 99 100 98 Intake/Output Intake/Output: Intake & Output 10/09/20 10/10/20 10/11/20 10/12/20 23:59 23:59 23:59 23:59 Intake Total 3100 1000 Output Total 1225 500 Balance 1875 500 Meds/Results Medications: Active Medications Generic Name Dose Route Start Last Admin Trade Name Freq PRN Reason Stop Dose Admin Sodium Chloride 1,000 mls @ 125 mls/hr 10/11/20 04:10 10/12/20 05:32 Normal Saline Iv IV CONT 125 mls/hr .Q8H STAN Administration Methylprednisolone Sodium Succinate 40 mg 10/11/20 09:00 10/12/20 08:57 Methylprednisolone Sod Succ 40 Mg Vial IV PUSH 40 mg DAILY STAN Administration Morphine Sulfate 4 mg 10/11/20 04:08 10/11/20 05:45 Morphine Sulfate (*Crx) 4 Mg/Ml Inj IV PUSH 4 mg Q2H PRN Administration Pain Rated 7-10 Ondansetron HCl 4 mg 10/11/20 04:08 10/11/20 05:45 Ondansetron Inj 4 Mg/2 Ml Vial IV PUSH 4 mg Q4H PRN Administration Nausea Pantoprazole Sodium 40 mg 10/11/20 09:00 10/12/20 08:56 Pantoprazole Sodium Iv 40 Mg Vial IV PUSH 40 mg DAILY STAN Administration Phenol 1 spray 10/11/20 14:33 Phenol/Sod Pheno [place] Chaney (*Bkc) MUCOUS MEM PRN PRN Sore Throat Radiology Results: ITS Impressions Abdomen/Pelvis CT 10/11/20 08:15 IMPRESSION: 1. Stricture of the terminal ileum with small bowel obstruction, consistent with Crohn disease. Abdomen X-Ray 10/12/20 12:34 IMPRESSION: 1. Nonobstructive bowel gas pattern. Labs Labs: Laboratory Results - last 24 hr 10/12/20 10/12/20 04:57 04:57 WBC 9.2 RBC 4.30 L Hgb 11.8 L D Hct 36.5 L MCV 84.9 MCH 27.4 MCHC 32.3 RDW 17.4 H Plt Count 318 MPV 9.4 Sodium 140 Potassium 3.7 Chloride 105 Carbon Dioxide 30 Anion Gap 5 L BUN 10 D Creatinine 0.70 Estim Creat Clear Calc 147 Estimated GFR > 60 Glucose 98 Calcium 8.8 Quality VTE Pr
[2020-10-12 14:45] VITALS: BP 112/59; PULSE 83; RESP 18; TEMP 36.6; O2SAT 99
--- NOTE | 2020-10-12 16:48 | WPDGIPROGNO ---
Progress Note: A&P Assessment and Plan (1) Crohn's disease of ileum: Qualifiers: Digestive disease complication type: with intestinal obstruction Qualified Code(s): K50.012 - Crohn's disease of small intestine with intestinal obstruction Code(s): K50.00 - Crohn's disease of small intestine without complications Status: Acute Assessment and Plan: continue with medical care, iv steroid probably will require surgery given ileitis with fibrostenotic component ok to remove ngt will work with his insurance to try to get remicade as outpatient to prevent more flare and strictures or other complications (TB and hbv negative) (2) Partial small bowel obstruction: Code(s): K56.600 - Partial intestinal obstruction, unspecified as to cause Status: Acute (3) Terminal ileitis: Qualifiers: Digestive disease complication type: unspecified complication Qualified Code(s): K50.019 - Crohn's disease of small intestine with unspecified complications Code(s): K50.00 - Crohn's disease of small intestine without complications Status: Acute (4) Chronic GERD: Code(s): K21.9 - Gastro-esophageal reflux disease without esophagitis Status: Chronic Subjective Date/time seen: 10/12/20 16:48 Interval history: less abdominal pain, NGT in place with less output Review of Systems Review of Systems: All systems reviewed & are unremarkable except as noted in HPI and below Exam Const: General: no acute distress HENMT: General nose exam: Normal nares present Eyes: Pupils: Equal, round and reactive pupils present Neck: Neck: supple Resp: Auscultation: clear to auscultation bilaterally Cardio: Rate: regular rate GI: Inspection: non-distended GI Palp: Yes Soft to palpation Auscultation: Hypoactive bowel sounds present Other: less tender today Skin: General skin exam: normal color Neuro: Speech: normal speech Motor exam (neuro): Normal motor muscle tone present throughout Extrem: General: normal to inspection Psych: Mental Status: mental status grossly normal Objective Data Vital Signs Vital Signs: Vital Signs - 24 hr 10/11/20 18:51 10/11/20 20:00 10/12/20 00:00 Temperature 97.5 F L 97.9 F 97.9 F Pulse Rate 70 59 L 72 Respiratory Rate 18 18 20 Blood Pressure 111/64 128/72 116/70 Pulse Oximetry 100 96 99 10/12/20 04:00 10/12/20 10:00 10/12/20 14:45 Temperature 98.2 F 98.0 F 97.9 F Pulse Rate 78 64 83 Respiratory Rate 18 16 18 Blood Pressure 121/75 123/76 112/59 L Pulse Oximetry 100 98 99 Intake/Output Intake/Output: Intake & Output 10/09/20 10/10/20 10/11/20 10/12/20 23:59 23:59 23:59 23:59 Intake Total 3100 2570 Output Total 1225 500 Balance 1875 2070 Meds/Results Medications: Active Medications Generic Name Dose Route Start Last Admin Trade Name Freq PRN Reason Stop Dose Admin Sodium Chloride 1,000 mls @ 125 mls/hr 10/11/20 04:10 10/12/20 14:51 Normal Saline Iv IV CONT 125 mls/hr .Q8H STAN Administration Methylprednisolone Sodium Succinate 40 mg 10/11/20 09:00 10/12/20 08:57 Methylprednisolone Sod Succ 40 Mg Vial IV PUSH 40 mg DAILY STAN Administration Morphine Sulfate 4 mg 10/11/20 04:08 10/11/20 05:45 Morphine Sulfate (*Crx) 4 Mg/Ml Inj IV PUSH 4 mg Q2H PRN Administration Pain Rated 7-10 Ondansetron HCl 4 mg 10/11/20 04:08 10/11/20 05:45 Ondansetron Inj 4 Mg/2 Ml Vial IV PUSH 4 mg Q4H PRN Administration Nausea Pantoprazole Sodium 40 mg 10/11/20 09:00 10/12/20 08:56 Pantoprazole Sodium Iv 40 Mg Vial IV PUSH 40 mg DAILY STAN Administration Phenol 1 spray 10/11/20 14:33 Phenol/Sod Pheno [place] Chaney (*Bkc) MUCOUS MEM PRN PRN Sore Throat Polyethylene Glycol 17 gm 10/12/20 16:30 Polyethylene Glycol 3350 17 Gm Powd.Pack PO Q12HR [facility] Radiology Results: ITS Impressions Abdomen/Pelvis CT 10/11/20 08:15 IMPRESSION: 1.
[2020-10-12] MEDS: polyethylene glycoL 3350 17 GM POWD.PACK PO (16:55)
[2020-10-12 20:00] VITALS: O2SAT 98
[2020-10-12 21:16] VITALS: BP 108/61; PULSE 80; RESP 16; TEMP 36.4; O2SAT 98
[2020-10-13 02:00] VITALS: BP 120/65; PULSE 67; RESP 16; TEMP 36.4; O2SAT 100
[2020-10-13 04:00] VITALS: BP 103/66; PULSE 58; RESP 16; TEMP 36.1; O2SAT 99
[2020-10-13 05:54] LABS: Hematocrit 34.1 % (42.0-52.0); Hemoglobin 11.3 g/dL (14.0-18.0); Mean Corpuscular HGB Conc 33.1 g/dl (32-36); Mean Corpuscular Hemoglobin 27.8 pg (26-34); Mean Corpuscular Volume 83.8 fl (80-100); Mean Platelet Volume 9.3 fl (7.4-10.4); Platelet Count Result 315 k/mm3 (150-375); Red Blood Count 4.07 M/mm3 (4.6-6.20); Red Cell Distribution Width 16.9 % (11.5-14.5); White Blood Count 7.5 K/mm3 (4.5-10.0)
[2020-10-13 06:11] LABS: Anion Gap 7 mmol/L (8-16); Blood Urea Nitrogen 10 mg/dL (9-20); Calcium 8.6 mg/dL (8.4-10.2); Carbon Dioxide 27 mmol/L (22-30); Chloride 105 mmol/L (98-107); Estimated CRCL calculation 169 ml/min; Estimated Glomerular Filt Rate > 60; Glucose 97 mg/dL (75-110); Potassium 3.6 mmol/L (3.4-5.0); Sodium 139 mmol/L (137-145)
[2020-10-13] MEDS: SODIUM CHLORIDE 0.9% IV 1,000 ML 125 ML IV CONT ×2 (06:52→15:00)
--- NOTE | 2020-10-13 08:40 | WPDGIPROGNO ---
Progress Note: A&P Assessment and Plan (1) Crohn's disease of ileum: Qualifiers: Digestive disease complication type: with intestinal obstruction Qualified Code(s): K50.012 - Crohn's disease of small intestine with intestinal obstruction Code(s): K50.00 - Crohn's disease of small intestine without complications Status: Acute Assessment and Plan: Patient with Crohn's disease. [place] to have terminal ileitis. Partial small bowel obstruction apparently has been recurrent. Patient improving currently with IV steroids. Currently on a liquid diet. Agree with indication for surgical resection of this lesion. Plan is for outpatient implementation of biologic agents such as Remicade. At this point would anticipate surgical follow-up. If surgery is delayed in changing to oral steroids would be indicated initially. (2) Small bowel obstruction: Code(s): K56.609 - Unspecified intestinal obstruction, unspecified as to partial versus complete obstruction Status: Acute (3) Partial small bowel obstruction: Code(s): K56.600 - Partial intestinal obstruction, unspecified as to cause Status: Acute (4) Terminal ileitis: Qualifiers: Digestive disease complication type: unspecified complication Qualified Code(s): K50.019 - Crohn's disease of small intestine with unspecified complications Code(s): K50.00 - Crohn's disease of small intestine without complications Status: Acute Subjective Date/time seen: 10/13/20 08:40 Patient seen today in the absence of Dr. Fung. Patient currently denies any abdominal pain. States he is passing flatus and stool. Tolerating liquid diet without difficulty. Review of Systems Review of Systems: All systems reviewed & are unremarkable except as noted in HPI and below Exam Narrative: Exam Narrative: Physical exam reveals patient be alert afebrile anicteric comfortable at rest. Lungs are clear to auscultation. Heart without murmur. Abdomen bowel sounds present soft nontender. No masses evident. No localized tenderness or pain. Objective Data Vital Signs Vital Signs: Vital Signs - 24 hr 10/12/20 10:00 10/12/20 14:45 10/12/20 20:00 Temperature 98.0 F 97.9 F Pulse Rate 64 83 Respiratory Rate 16 18 Blood Pressure 123/76 112/59 L Pulse Oximetry 98 99 98 10/12/20 21:16 10/13/20 02:00 10/13/20 04:00 Temperature 97.5 F L 97.5 F L 97.0 F L Pulse Rate 80 67 58 L Respiratory Rate 16 16 16 Blood Pressure 108/61 120/65 103/66 Pulse Oximetry 98 100 99 Intake/Output Intake/Output: Intake & Output 10/10/20 10/11/20 10/12/20 10/13/20 23:59 23:59 23:59 23:59 Intake Total 3100 3990 1350 Output Total 1225 1450 550 Balance 1875 2540 800 Meds/Results Medications: Active Medications Generic Name Dose Route Start Last Admin Trade Name Freq PRN Reason Stop Dose Admin Sodium Chloride 1,000 mls @ 125 mls/hr 10/11/20 04:10 10/13/20 06:52 Normal Saline Iv IV CONT 125 mls/hr .Q8H STAN Administration Methylprednisolone Sodium Succinate 40 mg 10/11/20 09:00 10/12/20 08:57 Methylprednisolone Sod Succ 40 Mg Vial IV PUSH 40 mg DAILY STAN Administration Morphine Sulfate 4 mg 10/11/20 04:08 10/11/20 05:45 Morphine Sulfate (*Crx) 4 Mg/Ml Inj IV PUSH 4 mg Q2H PRN Administration Pain Rated 7-10 Ondansetron HCl 4 mg 10/11/20 04:08 10/11/20 05:45 Ondansetron Inj 4 Mg/2 Ml Vial IV PUSH 4 mg Q4H PRN Administration Nausea Pantoprazole Sodium 40 mg 10/11/20 09:00 10/12/20 08:56 Pantoprazole Sodium Iv 40 Mg Vial IV PUSH 40 mg DAILY STAN Administration Phenol 1 spray 10/11/20 14:33 Phenol/Sod Pheno [place]aney (*Bkc) MUCOUS MEM PRN PRN Sore Throat Polyethylene Glycol 17 gm 10/12/20 16:30 10/12/20 16:55 Polyethylene Glycol 3350 17 Gm Powd.Pack PO 17 gm Q12HR STAN Administration Radiology Results: ITS Impressions Abdomen/Pe
[2020-10-13 09:20] VITALS: PULSE 64; RESP 18; O2SAT 99
[2020-10-13] MEDS: methylPREDNISolone SOD SUCC 40 MG VIAL IV PUSH (09:20)
[2020-10-13] MEDS: PANTOPRAZOLE SODIUM IV 40 MG VIAL IV PUSH (09:20)
[2020-10-13] MEDS: polyethylene glycoL 3350 17 GM POWD.PACK PO (09:20)
[2020-10-13 09:35] VITALS: BP 107/63; PULSE 60; RESP 18; TEMP 36.3; O2SAT 99
--- NOTE | 2020-10-13 11:32 | PM.PNGS ---
Progress Note: A&P Assessment and Plan (1) Crohn's disease of ileum: Qualifiers: Digestive disease complication type: with intestinal obstruction Qualified Code(s): K50.012 - Crohn's disease of small intestine with intestinal obstruction Code(s): K50.00 - Crohn's disease of small intestine without complications Status: Acute Assessment and Plan: He is tolerating a full liquid diet. Will give a dose of milk of magnesia today. Okay to discharge the patient from a surgical standpoint today. Continue Miralax twice daily on discharge. We will schedule surgery as an outpatient as soon as possible. We will plan to call the patient with further instruction once surgery is scheduled. He should go home on a full liquid diet with supplementation. [employer] consult to educate the patient. Okay to have very minimal intake of a soft low fiber diet if needed, but instructed the patient to primarily stick to a full liquid diet with the Ensure. (2) Partial small bowel obstruction: Code(s): K56.600 - Partial intestinal obstruction, unspecified as to cause Status: Acute Assessment and Plan: See plan above. Additional Plan Discussed the patient's case and plan of care with Dr. Rodas. Subjective Subjective Date/Time Seen: 10/13/20 10:06 Patient reports: no new complaints, feels better, tolerating liquids well, voiding w/o difficulty, flatus and no bowel movement Interval history: Patient seen this morning and tolerating a full liquid diet. Denies abdominal pain, bloating, or nausea. He has not had a BM yet, but feels like he is going to have one and is passing lots of gas. No other complaints at this time. Review of Systems Review of Systems: All systems reviewed & are unremarkable except as noted in HPI and below Exam Const: General: comfortable, no acute distress and alert Nutritional Appearance: average body habitus Orientation/consciousness: patient oriented x3 GI: Inspection: normal to inspection and non-distended GI Palp: Yes Soft to palpation, No Tenderness to palpation present (GI), No Guarding due to palpation present (GI) and No Rebound tenderness present Auscultation: normal bowel sounds Skin: General skin exam: normal color Neuro: General: moves all extremities and no focal motor deficits Extrem: General: normal to inspection and no clubbing, cyanosis or edema Psych: Appearance: grossly normal Insight: Good insight present (Psych) Judgement: Good judgement present (Psych) Objective Data Vital Signs Vital Signs: Vital Signs - 24 hr 10/12/20 14:45 10/12/20 20:00 10/12/20 21:16 Temperature 97.9 F 97.5 F L Pulse Rate 83 80 Respiratory Rate 18 16 Blood Pressure 112/59 L 108/61 Pulse Oximetry 99 98 98 10/13/20 02:00 10/13/20 04:00 10/13/20 09:20 Temperature 97.5 F L 97.0 F L Pulse Rate 67 58 L 64 Respiratory Rate 16 16 18 Blood Pressure 120/65 103/66 Pulse Oximetry 100 99 99 10/13/20 09:35 Temperature 97.3 F L Pulse Rate 60 Respiratory Rate 18 Blood Pressure 107/63 Pulse Oximetry 99 Intake/Output Intake/Output: Intake & Output 10/10/20 10/11/20 10/12/20 10/13/20 23:59 23:59 23:59 23:59 Intake Total 3100 3990 1350 Output Total 1225 1450 550 Balance 1875 2540 800 Meds/Results Medications: Active Medications Generic Name Dose Route Start Last Admin Trade Name Freq PRN Reason Stop Dose Admin Sodium Chloride 1,000 mls @ 125 mls/hr 10/11/20 04:10 10/13/20 06:52 Normal Saline Iv IV CONT 125 mls/hr .Q8H STAN Administration Methylprednisolone Sodium Succinate 40 mg 10/11/20 09:00 10/13/20 09:20 Methylprednisolone Sod Succ 40 Mg Vial IV PUSH 40 mg DAILY STAN Administration Morphine Sulfate 4 mg 10/11/20 04:08 10/11/20 05:45 Morphine Sulfate (*Crx) 4 Mg/Ml Inj IV PUSH 4 mg Q2H PRN Administration Pain Rated 7-10 Ondansetron HCl 4 mg 10/11/20 04:08 10/11/20 05:45 Ondansetron Inj 4 Mg/2 Ml Vial IV
--- NOTE | 2020-10-13 11:51 | PCDIET ---
Physician consult for Chron's. Patient educated on diet today. See Nutritional Teaching Interventions. I left my contact info for any further questions concerns. Thank you for the consult.
[2020-10-13 13:18] VITALS: BP 117/63; PULSE 89; RESP 18; TEMP 36.4; O2SAT 99
[2020-10-13] MEDS: MAGNESIUM HYDROXIDE SUSP 30 ML UDC PO (14:21)
--- NOTE | 2020-10-13 15:58 | PM.DS ---
DS: Admitting Diagnosis Admitting Diagnosis Admitting Diagnosis: Chron's flare and small bowel obstruction DS: Discharge Diagnosis Discharge Diagnosis (1) Crohn's disease of ileum: Qualifiers: Digestive disease complication type: with intestinal obstruction Qualified Code(s): K50.012 - Crohn's disease of small intestine with intestinal obstruction Code(s): K50.00 - Crohn's disease of small intestine without complications Status: Acute Assessment and Plan: Discharge Summary (Date of service 10/13/20): Mr. Pretty is a 20 y.o. 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 He had a recent hospital stay 09/06/20-09/09/20 for Chron's fare and was treated with slow steroid taper. Colonoscopy 09/08/20 was consistent with Chron's ileitis. Initial workup in the emergency department included CT abd/pelvis which showed stricture of the terminal ileum with SBO. NG tube was placed and he was admitted to the hospitalist service with general surgery and GI consultation. He is in the process of trying to initiate biologic therapy per GI. He was given IV solu-medrol while inpatient. His SBO resolved conservatively but due to fibrostenotic disease with recurrent small bowel obstruction, he will require ileo-cecectomy. He discussed this with general surgery and he preferred to have this done outpatient after discharge. He was passing gas and instructed to continue miralax BID per surgery. He was also advised to stay on a primarily full liquid diet with minimal intake of soft, low fiber foods as needed until surgery. He was felt stable for discharge from a general surgery standpoint. His steroid taper was resumed but I advised he resume 40mg x7 days with 5mg taper weekly until surgery. He was discharged in hemodynamically stable condition on the evening of 10/13/20. He verbalized understanding in worrisome signs and symptoms which would warrant return to the emergency department. I also spoke with his mom over the phone to discuss discharge plans with his permission. (2) Small bowel obstruction: Code(s): K56.609 - Unspecified intestinal obstruction, unspecified as to partial versus complete obstruction Status: Acute Assessment and Plan: CT suggests that there is a small bowel obstruction secondary to a 15 cm segment of the terminal ileum with wall thickening and stricture. Likely secondary to Crohn's flare. Pain has improved and he is passing flatus. Ileo-cecectomy due to stricture is anticipated and general surgery, Dr. Rodas, will be in touch with the patient to get this scheduled. DS: Summary Hospital Course Reason for hospitalization: Chron's flare with small bowel obstruction Hospital Course: As above. Status at Discharge Functional status at discharge: independent ambulation Overall status at discharge: patient is back to baseline Time Spent with Patient Time attestation: Total time spent providing and/or coordinating discharge services: 50 minutes Exam Narrative: Exam Narrative: Vitals at presentation: Temp Pulse Resp BP Pulse Ox 97.8 F 107 H 14 126/78 100 10/11/20 01:11 10/11/20 01:11 10/11/20 01:11 10/11/20 01:11 10/11/20 01:11 Vitals at discharge: Temp Pulse Resp BP Pulse Ox 97.6 F 89 18 117/63 99 10/13/20 13:18 10/13/20 13:18 10/13/20 13:18 10/13/20 13:18 10/13/20 13:18 General: Pleasant, well-developed and well-nourished 20 y.o. male resting in bed comfortably in no acute distress. HEENT: Normocephalic and atraumatic. Scleare anicteric.Oral mucosa moist. Neck: Supple. Cardiac: Re
== END 2020-10-13 17:20 | disposition home or self-care (01) | DRG 387 ==
LOC: ANHED 04:13 → ANH3MEDSUR 04:43 → ANH2MED 08:23
PROVIDERS: Physician Assistant; Admitting Provider Student in an Organized Health Care Education/Training Program; Emergency Provider Emergency Medicine; PCP Family Medicine; Visit Provider Internal Medicine
DX: K50.012 Crohn's disease of small intestine with intestinal obstruction (principal); K21.9 Gastro-esophageal reflux disease without esophagitis; Z79.899 Other long term (current) drug therapy; Z88.1 Allergy status to other antibiotic agents
CPT/HCPCS: 36415; 74019; 74177; 80048; 80053; 83690; 85025; 85027; 96361; 96374; 96375; 96376; 99285; A9270; C9113; G0378; J0131; J2270; J2405; J2920; J7030; Q9967

== ENCOUNTER 2020-10-18 07:53 | Outpatient (CLI) | payer OTHER, SELFPAY | END 2020-10-18 07:54 | disposition home or self-care (01) | PROVIDERS: PCP Family Medicine; Visit Provider Surgery | DX: Z01.818 Encounter for other preprocedural examination (principal); K50.90 Crohn's disease, unspecified, without complications | CPT/HCPCS: 36415; 86850; 86900; 86901 ==

== ENCOUNTER 2020-10-23 01:20 | Outpatient (CLI) | payer OTHER, SELFPAY ==
[2020-10-23 19:31] LABS: SARS-CoV-2 RNA PCR Negative
== END 2020-10-23 01:21 | disposition home or self-care (01) ==
LOC: ANHCOVIDDT 01:20
PROVIDERS: PCP Family Medicine; Visit Provider Surgery
DX: Z01.818 Encounter for other preprocedural examination (principal); Z20.828 Contact with and (suspected) exposure to other viral communicable diseases
CPT/HCPCS: 87635; C9803; U0003

== ENCOUNTER 2020-10-27 12:22 | Inpatient (IN) | payer OTHER, SELFPAY ==
[2020-10-18 07:52] VITALS: BP 128/74; PULSE 70; RESP 18; TEMP 36.8; O2SAT 99
[2020-10-18 08:15] VITALS: BMI 22.6
--- NOTE | 2020-10-25 13:45 | WPDANESEPPF ---
Anes - Initial Pre Proc Eval Procedure: Operation Date: 10/27/20 11:30 Proposed Procedures p Hand Assisted Lapraroscopic Ileocecectomy - Casey Rodas DO Date/Time: 10/25/20 13:45 Surgeon: Casey Rodas DO Pre Op Diagnosis: Crohn's Disease Patient Data Age: 20 Gender: M Height: 1.75 m Weight: 69.7 kg Last Vital Signs Temp 36.8 C 10/18/20 07:52 Pulse 70 10/18/20 07:52 Resp 18 10/18/20 07:52 BP 128/74 10/18/20 07:52 Pulse Ox 99 10/18/20 07:52 Allergies Allergy/AdvReac Type Severity Reaction Status Date / Time amoxicillin AdvReac Hives, Verified 10/18/20 08:09 JOINT PAIN cefdinir [From Omnicef] AdvReac Hives, Verified 10/18/20 08:09 JOINT PAIN Home Medications Medication Instructions Recorded Confirmed Type pantoprazole 40 mg PO DAILY 10/18/20 10/18/20 History polyethylene glycol 3350 [Miralax] 17 g PO BID 10/18/20 10/18/20 History prednisone See Rx Instructions .ROUTE .COMPLEX 10/18/20 10/18/20 History Patient hx anesthesia problems: none Family hx anesthesia problems: none PMFSH Past Medical History Medical History (Updated 10/25/20 @ 13:45 by Chandra Vail MD) Crohn's disease Social History Social History Smoking status: Never smoker Alcohol intake: never Substance use: never Living arrangements: with family Spiritual care concerns: No Anes - Eval Final PreProcedure Day of Procedure 10/25/20 13:45 Patient weight: overweight Heart: regular rate and rhythm Lungs: clear to auscultation and normal air movement Airway: Mallampati scale class II Neurological: alert and oriented Last oral intake: >/= 8 hours ASA classification: II Emergent: no Anesthetic plan: proceed Anesthesia type and monitoring: general ETT Informed Consent: The patient's anesthetic plan and its attendant risks and benefits were discussed with the patient/family/POA. Questions were solicited and answers provided to the satisfaction of the patient/family/POA.
[2020-10-27] VITALS (13 sets, daily range): BP systolic 109–127; BP diastolic 52–77; PULSE 56–113; RESP 12–18; TEMP 36.1–37.2; O2SAT 97–100
[2020-10-27] MEDS: ACETAMINOPHEN 500 MG TABLET 1000 MG PO (10:19)
[2020-10-27] MEDS: LACTATED RINGERS 1,000 ML 30 ML IV CONT ×3 (10:30→14:46)
[2020-10-27] MEDS: KETOROLAC 15 MG/ML VIAL (*BKC) IV PUSH (10:35)
--- NOTE | 2020-10-27 11:26 | SUR.PREOP ---
1120-PT AWARE SURGEON DELAYS SELF ~1 HOUR.
--- NOTE | 2020-10-27 12:06 | PM.IMHP ---
H&P: HPI History of Present Illness Date/Time: 10/27/20 12:06 Chief Complaint: Crohn's disease Narrative: Joni Pretty is a 20 year old male who presents with an ileal stricture secondary to Crohn's disease. He has been hospitalized twice for this in the past 2 months. He was just diagnosed with Crohn's disease about 2-3 months ago and was started on anti-inflammatories, but continues to have significant symptoms. He has a 15 cm segment of distal ileal stricture which will not likely improve with ongoing medical treatment. Decision was made to proceed with hand assisted laparoscopic ileocecectomy. Review of Systems Review of Systems: All systems reviewed & are unremarkable except as noted in HPI and below PMFSH Past Medical History Medical History Crohn's disease Social History Social History Smoking status: Never smoker Alcohol intake: never Substance use: never Living arrangements: with family Spiritual care concerns: No Meds Home Medications and Allergies Home Medications Medication Instructions Recorded Confirmed Type pantoprazole 40 mg PO DAILY 10/18/20 10/18/20 History polyethylene glycol 3350 [Miralax] 17 g PO BID 10/18/20 10/18/20 History prednisone See Rx Instructions .ROUTE .COMPLEX 10/18/20 10/18/20 History Allergies Allergy/AdvReac Type Severity Reaction Status Date / Time amoxicillin AdvReac Hives, Verified 10/18/20 08:09 JOINT PAIN cefdinir [From Omnicef] AdvReac Hives, Verified 10/18/20 08:09 JOINT PAIN Vital Signs Vital Signs - 24 hr 10/27/20 09:27 Temperature 37.2 C Pulse Rate 113 H Respiratory Rate 16 Blood Pressure 123/73 Pulse Oximetry 100 Exam Const: General: no acute distress and alert Orientation/consciousness: patient oriented x3 HENMT: Head: normocephalic and atraumatic Ears: hearing grossly normal bilaterally General nose exam: Normal nares present Mouth: Yes Normal oral and palatal mucosa present Eyes: Periorbital: periorbital findings normal Sclera: sclerae normal EOM: EOMs intact bilaterally Neck: Neck: normal visual inspection, no lymphadenopathy and trachea midline Chest: Chest palpation & inspection: normal inspection of the chest Resp: Effort & Inspection: normal respiratory effort Auscultation: clear to auscultation bilaterally Cardio: Jugular venous distension: no JVD Rate: regular rate Rhythm: regular rhythm Heart sounds: S1 normal heart sound present and S2 normal heart sound present Peripheral pulses: Peripheral pulses 2+ throughout GI: Inspection: normal to inspection GI Palp: Yes Soft to palpation, No Tenderness to palpation present (GI), No Guarding due to palpation present (GI) and No Rebound tenderness present Percussion: Yes normal to percussion Auscultation: normal bowel sounds : General: Yes no CVA tenderness Back/Spine/Pelvis: Back: no CVA tenderness Neuro: General: patient oriented x3, no focal motor deficits and CN's II-XI intact bilaterally Cognition (Neuro): normal cognition Speech: normal speech Motor exam (neuro): 5/5 motor strength present throughout Extrem: General: capillary refill normal and no clubbing, cyanosis or edema Assessment and Plan Assessment and plan (1) Crohn's disease: Qualifiers: Gastrointestinal tract location: small intestine Digestive disease complication type: with intestinal obstruction Qualified Code(s): K50.012 - Crohn's disease of small intestine with intestinal obstruction Code(s): K50.90 - Crohn's disease, unspecified, without complications Status: Acute Assessment and Plan: I have recommended hand assisted laparoscopic ileocecectomy, possible open. I have discussed the procedure, risks, benefits, and alternatives with the patient. All questions answered. No changes since last seen in hospital.
--- NOTE | 2020-10-27 12:12 | WPDHPUPDATE1 ---
History and Physical Update Update Date/Time: 10/27/20 12:12 History and Physical has been reviewed, including an updated exam of the patient. There are NO changes in the patient's condition. Risks, benefits, and alternatives have been discussed and questions answered. Patient agrees to proceed with procedure.
[2020-10-27] MEDS: CLINDAMYCIN 900 MG/D5W 50 ML 900 MG/50 ML PIGGYBACK 50 MG IVPB (13:04)
--- NOTE | 2020-10-27 14:36 | PM.PROC ---
Procedure Note - Detailed Date of procedure: 10/27/20 Pre-op diagnosis: Crohn's Disease Post-op diagnosis: same Procedure performed: Hand assisted laparoscopic ileocecectomy with ileocolic anastomosis Description of procedure: Procedure as well as risks benefits and alternatives were explained to the patient. Written consent was obtained and placed in chart prior to procedure. Patient was brought back to surgical suite. He was placed supine on operating table. Time-out was done to confirm patient procedure. He was then intubated by the anesthesia department. His abdomen was prepped and draped in sterile fashion using chlorhexidine prep. A 7 centimeter vertical incision was made centered on the umbilicus using a 15 blade scalpel. Electrocautery was used for hemostasis and for dissection down through Fely's fascia. The linea alba was identified, and incised using electrocautery. Two Nirav clamps were used to lift the fascia anteriorly, and the peritoneum was then entered using electrocautery. The abdomen was inspected and no acute abnormalities were noted. The wound protector was placed at this incision, and the GelPort was applied with a 5 millimeter port placed through it. Carbon dioxide insufflation was used to create a pneumoperitoneum. The camera was inserted and the abdominal cavity was inspected. Inflammation was noted in the distal 15 cm of the ileum all the way to the ileocecal valve, and no other abnormalities were noted. The patient was placed in Trendelenburg position and rotated slightly to the left. A 5 millimeter incision was made in the lower midline and a 5 millimeter trocar was inserted under direct visualization. Another 5 millimeter incision was made in the left lower quadrant, and a 5 millimeter trocar was inserted under direct visualization. A transversus abdominis plane block with Exparel was performed under laparoscopic visualization bilaterally. After carefully inspecting the abdominal cavity, I began my dissection from a medial to lateral direction along the ileocolic pedicle. The cecum was tented anteriorly and laterally and this allowed me to visualize the ileocolic pedicle. The medial side and inferior side of the peritoneum was scored using hook electrocautery and the retroperitoneal plane was entered. Careful dissection was performed using hook electrocautery in this relatively avascular plane. The duodenum was identified and swept posteriorly. I then continued to dissect proximally along the ileocolic pedicle. I isolated the ileocolic vein and artery individually and ligated each using bipolar cautery. Hemostasis appeared adequate. I then continued the medial to lateral dissection maintaining this avascular plane. The terminal ileum and appendix were then retracted medially and the lateral peritoneal attachments were taken down using hook electrocautery. The root of the mesentery was then carefully taken down proximally to allow adequate mobilization of the small bowel for our anastomosis. The lateral peritoneal attachments of the ascending colon were then taken down using hook electrocautery. The hepatic flexure was taken down using ligasure bipolar cautery. Once this was completed I gained adequate mobilization of the entire ascending colon to exteriorize and perform our resection and anastomosis. The patient was flattened out in bed, and the cecum was grasped and delivered through the wound protector. The pneumoperitoneum was released. I carefully delivered the distal ileum and ascending colon out through the hand port incision. The specimen was inspected and appeared to have adequate mobilization beyond the inflamed ileum to perform our resection. The ascending colon was cleared of the epiploic appendages just beyond the cecum and a MARIA G 75 millimeter blue load stapler was advanced across the ascending colon at this point and clamped and fired. A window was then created in the mesentery at the ileum just proximal
--- NOTE | 2020-10-27 15:55 | ADMGEN ---
This patient, Joni Pretty, was admitted to 2 Medical Room 255-01. Patient/family oriented to hospital policies and general routines including ID bracelet, bed and alarms, visiting hours, pain management, procedures, bathroom and other care routines, personal items, smoking policy, room service/diet, and visiting hours. Information on how to activate the Rapid Response Team has been discussed. Patient/Family are encouraged to report perceived risks to care and to ask questions if they do not understand what they are told or what they should do.
[2020-10-27] MEDS: LACTATED RINGERS 1,000 ML 100 ML IV CONT (16:10)
[2020-10-27] MEDS: HYDROmorphone HCL INJ (*CRX) 1 MG/ML SYR 0.5 MG IV PUSH (16:11)
[2020-10-27] MEDS: ONDANSETRON INJ 4 MG/2 ML VIAL IV PUSH ×2 (17:32→22:39)
[2020-10-27] MEDS: HYDROmorphone HCL INJ (*CRX) 1 MG/ML SYR IV PUSH (22:39)
[2020-10-27] MEDS: ENOXAPARIN 30 MG/0.3 ML SYRINGE SUB-Q (22:48)
[2020-10-28 00:57] VITALS: BP 119/59; PULSE 63; RESP 16; TEMP 36; O2SAT 100
[2020-10-28] MEDS: LACTATED RINGERS 1,000 ML 100 ML IV CONT (03:08)
[2020-10-28] MEDS: HYDROmorphone HCL INJ (*CRX) 1 MG/ML SYR 0.5 MG IV PUSH ×2 (05:14→11:45)
--- NOTE | 2020-10-28 05:32 | PC.NURSE ---
patient up in chair for 45 minutes last nigh at 2100. walked one circuit around unit at 0300. denies bm or passing gas. bowel sounds hypoactive. abdominal incisions approximated and intact.
[2020-10-28 05:37] VITALS: BP 125/58; PULSE 64; RESP 16; TEMP 36.4; O2SAT 100
[2020-10-28 05:56] LABS: Basophils Percent Auto 0.1 % (0.2-1.2); Hematocrit 34.8 % (42.0-52.0); Hemoglobin 11.3 g/dL (14.0-18.0); Immature Granulocyte Absolute 0.06 K/mm3 (0.00-0.031); Immature Granulocyte Percent A 0.4 % (0-0.5); Lymphocytes Absolute Auto 0.74 K/mm3 (0.9-3.2); Lymphocytes Percent Auto 5.4 % (18.3-44.2); Mean Corpuscular HGB Conc 32.5 g/dl (32-36); Mean Corpuscular Hemoglobin 28.2 pg (26-34); Mean Corpuscular Volume 86.8 fl (80-100); Mean Platelet Volume 9.2 fl (7.4-10.4); Monocytes Absolute Auto 1.1 K/mm3 (0.1-0.6); Monocytes Percent Auto 8.3 % (2.6-8.5); Neutrophils Absolute Auto 11.7 K/mm3 (1.3-6.7); Neutrophils Percent Auto 85.8 % (45.5-73.1); Platelet Count Result 346 k/mm3 (150-375); Red Blood Count 4.01 M/mm3 (4.6-6.20); Red Cell Distribution Width 17.6 % (11.5-14.5); White Blood Count 13.7 K/mm3 (4.5-10.0)
[2020-10-28 06:07] LABS: Anion Gap 9 mmol/L (8-16); Blood Urea Nitrogen 8 mg/dL (9-20); Calcium 9.1 mg/dL (8.4-10.2); Carbon Dioxide 28 mmol/L (22-30); Chloride 101 mmol/L (98-107); Estimated CRCL calculation 135 ml/min; Estimated Glomerular Filt Rate > 60; Glucose 113 mg/dL (75-110); Sodium 138 mmol/L (137-145)
[2020-10-28] MEDS: predniSONE 10 MG TABLET PO (08:06)
[2020-10-28] MEDS: ENOXAPARIN 30 MG/0.3 ML SYRINGE SUB-Q ×2 (08:06→20:12)
[2020-10-28] MEDS: PANTOPRAZOLE 40 MG TABLET PO (08:06)
--- NOTE | 2020-10-28 09:54 | PM.PNGS ---
Progress Note: A&P Assessment and Plan (1) Crohn's disease: Qualifiers: Gastrointestinal tract location: small intestine Digestive disease complication type: with intestinal obstruction Qualified Code(s): K50.012 - Crohn's disease of small intestine with intestinal obstruction Code(s): K50.90 - Crohn's disease, unspecified, without complications Status: Acute Assessment and Plan: Advance to full liquids Await return of bowel function Increase activity, encourage IS Path pending Subjective Subjective Date/Time Seen: 10/28/20 09:54 Post Op day: 1 Interval history: Tolerating clears. Pain controlled. No BM yet. Exam GI: Inspection: non-distended and incision (intact with glue) GI Palp: Yes Soft to palpation and Yes Tenderness to palpation present (GI) (incisional) Auscultation: normal bowel sounds Objective Data Vital Signs Vital Signs: Vital Signs - 24 hr 10/27/20 14:26 10/27/20 14:40 10/27/20 14:55 Temperature 36.1 C L Pulse Rate 75 67 66 Respiratory Rate 12 16 14 Blood Pressure 121/70 121/72 124/66 Pulse Oximetry 100 100 100 10/27/20 15:10 10/27/20 15:25 10/27/20 15:40 Temperature 36.3 C L Pulse Rate 67 56 L 56 L Respiratory Rate 14 12 12 Blood Pressure 125/66 123/77 110/62 Pulse Oximetry 99 98 97 10/27/20 16:00 10/27/20 16:15 10/27/20 16:45 Temperature 36.3 C L 36.3 C L 36.2 C L Pulse Rate 65 76 61 Respiratory Rate 16 16 16 Blood Pressure 122/68 127/62 112/54 L Pulse Oximetry 99 99 98 10/27/20 17:37 10/27/20 20:00 10/27/20 21:37 Temperature 37.1 C 36.8 C Pulse Rate 65 63 63 Respiratory Rate 16 18 18 Blood Pressure 109/52 L 113/54 L Pulse Oximetry 99 99 99 10/28/20 00:57 10/28/20 05:37 Temperature 36.0 C L 36.4 C Pulse Rate 63 64 Respiratory Rate 16 16 Blood Pressure 119/59 L 125/58 L Pulse Oximetry 100 100 Intake/Output Intake/Output: Intake & Output 10/25/20 10/26/20 10/27/2031/20 23:59 23:59 23:59 23:59 Intake Total 750 1200 Output Total 650 Balance 750 550 Meds/Results Medications: Active Medications Generic Name Dose Route Start Last Admin Trade Name Freq PRN Reason Stop Dose Admin Enoxaparin Sodium 30 mg 10/27/20 21:00 10/28/20 08:06 Enoxaparin 30 Mg/0.3 Ml Syringe SUB-Q 30 mg Q12HR STAN Administration Hydromorphone HCl 1 mg 10/27/20 15:52 10/27/20 22:39 Hydromorphone Hcl Inj (*Crx) 1 Mg/Ml Syr IV PUSH 1 mg Q2H PRN Administration Pain Rated 7-10 Hydromorphone HCl 0.5 mg 10/27/20 15:52 10/28/20 05:14 Hydromorphone Hcl Inj (*Crx) 1 Mg/Ml Syr IV PUSH 0.5 mg Q2H PRN Administration Pain Rated 4-6 Lactated Ringer's 1,000 mls @ 100 mls/hr 10/27/20 15:52 10/28/20 03:08 Lr - Lactated Ringers Iv IV CONT 100 mls/hr .Q10H STAN Administration Acetaminophen 1,000 mg in 100 mls @ 400 mls/hr 10/27/20 18:00 10/28/20 07:00 Ofirmev 1,000 Mg Ivpb IVPB 10/28/20 18:01 Infused Q6HR STAN Infusion Ondansetron HCl 4 mg 10/27/20 15:52 10/27/20 22:39 Ondansetron Inj 4 Mg/2 Ml Vial IV PUSH 4 mg Q4H PRN Administration Nausea And Vomiting Pantoprazole Sodium 40 mg 10/28/20 09:00 10/28/20 08:06 Pantoprazole 40 Mg Tablet PO 40 mg DAILY STAN Administration Prednisone 10 mg 10/28/20 09:00 10/28/20 08:06 Prednisone 10 Mg Tablet PO 10 mg DAILY STAN Administration Labs Labs: Laboratory Results - last 24 hr 10/28/20 10/28/20 05:42 05:42 WBC 13.7 H RBC 4.01 L Hgb 11.3 L Hct 34.8 L MCV 86.8 MCH 28.2 MCHC 32.5 RDW 17.6 H Plt Count 346 MPV 9.2 Immature Gran % (Auto) 0.4 Neut % (Auto) 85.8 H Lymph % (Auto) 5.4 L Stark % (Auto) 8.3 Eos % (Auto) 0.0 Baso % (Auto) 0.1 L Lymph # (Auto) 0.74 L Stark # (Auto) 1.1 H Eos # (Auto) 0.0 Baso # (Auto) 0.0 Abs Immat Gran (auto) 0.06 H Absolute Neuts (auto) 11.7 H Absolute Nucleated RBC 0.0 Nucleated RBC % 0.0 Sodium 138 Potassium
[2020-10-28 10:00] VITALS: BP 127/58; PULSE 55; RESP 16; TEMP 36.4; O2SAT 100
[2020-10-28] MEDS: HYDROcodone/acetaminophen (*CRX) 10-325 MG TABLET 1 TAB PO (10:15)
[2020-10-28] MEDS: ONDANSETRON INJ 4 MG/2 ML VIAL IV PUSH (11:44)
[2020-10-28 14:00] VITALS: BP 118/56; PULSE 75; RESP 16; TEMP 36.6; O2SAT 99
[2020-10-28] MEDS: HYDROcodone/acetaminophen (*CRX) 5-325 MG TABLET 1 TAB PO (17:21)
[2020-10-28 18:44] VITALS: BP 118/49; PULSE 76; RESP 16; TEMP 36.9; O2SAT 100
[2020-10-28 21:51] VITALS: BP 120/64; PULSE 73; RESP 16; TEMP 36.6; O2SAT 99
[2020-10-29] MEDS: HYDROcodone/acetaminophen (*CRX) 10-325 MG TABLET 1 TAB PO ×3 (00:30→09:13)
[2020-10-29 05:38] VITALS: BP 115/50; PULSE 75; RESP 16; TEMP 36.6; O2SAT 100
[2020-10-29 05:49] LABS: Hematocrit 36.5 % (42.0-52.0); Hemoglobin 11.7 g/dL (14.0-18.0); Mean Corpuscular HGB Conc 32.1 g/dl (32-36); Mean Corpuscular Volume 87.3 fl (80-100); Mean Platelet Volume 9.4 fl (7.4-10.4); Platelet Count Result 385 k/mm3 (150-375); Red Blood Count 4.18 M/mm3 (4.6-6.20); Red Cell Distribution Width 18.1 % (11.5-14.5); White Blood Count 11.6 K/mm3 (4.5-10.0)
[2020-10-29 06:11] LABS: Anion Gap 4 mmol/L (8-16); Blood Urea Nitrogen 8 mg/dL (9-20); Carbon Dioxide 32 mmol/L (22-30); Chloride 100 mmol/L (98-107); Estimated CRCL calculation 120 ml/min; Estimated Glomerular Filt Rate > 60; Glucose 95 mg/dL (75-110); Potassium 3.5 mmol/L (3.4-5.0); Sodium 136 mmol/L (137-145)
[2020-10-29] MEDS: predniSONE 10 MG TABLET PO (09:01)
[2020-10-29] MEDS: PANTOPRAZOLE 40 MG TABLET PO (09:01)
[2020-10-29] MEDS: ENOXAPARIN 30 MG/0.3 ML SYRINGE SUB-Q (09:01)
[2020-10-29] MEDS: polyethylene glycoL 3350 17 GM POWD.PACK PO (09:02)
--- NOTE | 2020-10-29 12:25 | PM.PNGS ---
Progress Note: A&P Assessment and Plan (1) Crohn's disease: Qualifiers: Gastrointestinal tract location: small intestine Digestive disease complication type: with intestinal obstruction Qualified Code(s): K50.012 - Crohn's disease of small intestine with intestinal obstruction Code(s): K50.90 - Crohn's disease, unspecified, without complications Status: Acute Assessment and Plan: Advance to soft diet Increase activity, encourage IS Possibly home tomorrow if continuing to improve MiraLax started today Subjective Subjective Date/Time Seen: 10/29/20 12:25 Post Op day: 2 Interval history: Tolerating full liquids. No BM or flatus yet. Not feeling bloated. Ambulating in halls. Pain controlled. Exam GI: Inspection: non-distended and incision (intact with glue) GI Palp: Yes Soft to palpation and Yes Tenderness to palpation present (GI) (incisional) Auscultation: normal bowel sounds Objective Data Vital Signs Vital Signs: Vital Signs - 24 hr 10/28/20 14:00 10/28/20 18:44 10/28/20 21:51 Temperature 36.6 C 36.9 C 36.6 C Pulse Rate 75 76 73 Respiratory Rate 16 16 16 Blood Pressure 118/56 L 118/49 L 120/64 Pulse Oximetry 99 100 99 10/29/20 05:38 Temperature 36.6 C Pulse Rate 75 Respiratory Rate 16 Blood Pressure 115/50 L Pulse Oximetry 100 Intake/Output Intake/Output: Intake & Output 10/26/20 10/27/20 10/28/20 10/29/20 23:59 23:59 23:59 23:59 Intake Total 750 2580 300 Output Total 650 400 Balance 750 1930 -100 Meds/Results Medications: Active Medications Generic Name Dose Route Start Last Admin Trade Name Freq PRN Reason Stop Dose Admin Hydrocodone Bitart/Acetaminophen 1 tab 10/28/20 09:53 10/29/20 09:13 Hydrocodone/Acetaminophen (*Crx) 10-325 Mg Tablet PO 1 tab Q4H PRN Administration Pain Rated 7-10 Hydrocodone Bitart/Acetaminophen 1 tab 10/28/20 09:53 10/28/20 17:21 Hydrocodone/Acetaminophen (*Crx) 5-325 Mg Tablet PO 1 tab Q4H PRN Administration Pain Rated 4-6 Enoxaparin Sodium 40 mg 10/30/20 09:00 Enoxaparin 40 Mg/0.4 Ml Syringe SUB-Q DAILY STAN Hydromorphone HCl 1 mg 10/27/20 15:52 10/27/20 22:39 Hydromorphone Hcl Inj (*Crx) 1 Mg/Ml Syr IV PUSH 1 mg Q2H PRN Administration Pain Rated 7-10 Hydromorphone HCl 0.5 mg 10/27/20 15:52 10/28/20 11:45 Hydromorphone Hcl Inj (*Crx) 1 Mg/Ml Syr IV PUSH 0.5 mg Q2H PRN Administration Pain Rated 4-6 Ondansetron HCl 4 mg 10/27/20 15:52 10/28/20 11:44 Ondansetron Inj 4 Mg/2 Ml Vial IV PUSH 4 mg Q4H PRN Administration Nausea And Vomiting Pantoprazole Sodium 40 mg 10/28/20 09:00 10/29/20 09:01 Pantoprazole 40 Mg Tablet PO 40 mg DAILY STAN Administration Polyethylene Glycol 17 gm 10/29/20 08:26 10/29/20 09:02 Polyethylene Glycol 3350 17 Gm Powd.Pack PO 17 gm QAM PRN Administration Constipation Polyethylene Glycol 17 gm 10/30/20 09:00 Polyethylene Glycol 3350 17 Gm Powd.Pack PO QAM STAN Prednisone 10 mg 10/28/20 09:00 10/29/20 09:01 Prednisone 10 Mg Tablet PO 10 mg DAILY STAN Administration Labs Labs: Laboratory Results - last 24 hr 10/29/20 10/29/20 05:25 05:25 WBC 11.6 H RBC 4.18 L Hgb 11.7 L Hct 36.5 L MCV 87.3 MCH 28.0 MCHC 32.1 RDW 18.1 H Plt Count 385 H MPV 9.4 Sodium 136 L Potassium 3.5 Chloride 100 Carbon Dioxide 32 H Anion Gap 4 L BUN 8 L Creatinine 0.80 Estim Creat Clear Calc 120 Estimated GFR > 60 Glucose 95 Calcium 9.0
[2020-10-29 14:00] VITALS: BP 129/52; PULSE 82; RESP 18; TEMP 36.5; O2SAT 99
[2020-10-29] MEDS: HYDROcodone/acetaminophen (*CRX) 5-325 MG TABLET 1 TAB PO ×2 (15:24→20:27)
[2020-10-29 22:00] VITALS: BP 114/61; PULSE 73; RESP 21; TEMP 36.3; O2SAT 100
[2020-10-30] MEDS: HYDROcodone/acetaminophen (*CRX) 5-325 MG TABLET 1 TAB PO ×3 (00:11→13:52)
[2020-10-30 06:00] VITALS: BP 133/59; PULSE 69; RESP 21; TEMP 36.4; O2SAT 100
[2020-10-30] MEDS: PANTOPRAZOLE 40 MG TABLET PO (08:07)
[2020-10-30] MEDS: polyethylene glycoL 3350 17 GM POWD.PACK PO (08:07)
[2020-10-30] MEDS: predniSONE 10 MG TABLET PO (08:07)
--- NOTE | 2020-10-30 13:20 | PM.DS ---
DS: Admitting Diagnosis Admitting Diagnosis Admitting Diagnosis: Crohn's disease with ileal stricture and partial obstruction DS: Discharge Diagnosis Discharge Diagnosis (1) Crohn's disease: Qualifiers: Gastrointestinal tract location: small intestine Digestive disease complication type: with intestinal obstruction Qualified Code(s): K50.012 - Crohn's disease of small intestine with intestinal obstruction Code(s): K50.90 - Crohn's disease, unspecified, without complications Status: Acute DS: Summary Hospital Course Reason for hospitalization: Crohn's disease Hospital Course: This is a 20-year-old man who presented with multiple episodes of partial bowel obstruction secondary to a stricture in the distal ileum. He was recently diagnosed with Crohn's disease and was started on medical treatment for this but with fibrostenotic disease, this did not seem to be causing any significant improvement of the stricture. He was brought in for ileocecal resection on 10/27/2020. Surgery was uncomplicated and a 15 cm segment of the distal ileum appeared to be involved with the stricture. He was admitted to the surgical floor postoperatively. He was started on clear liquid diet and this was continued on postop day 1. He was then advanced to a full liquid diet on postop day 1 and seem to be tolerating this well. On postop day 2 he still was not passing flatus or having bowel movements, therefore he was started on MiraLax. He was advanced to a soft diet in the afternoon on postop day 2. He then had multiple bowel movements and was tolerating the soft diet. Postop day 3 he was hemodynamically stable and ambulating without much difficulty. He denied any nausea or vomiting and was tolerating his soft regular diet. He was discharged on postop day 3. Status at Discharge Functional status at discharge: independent ambulation Overall status at discharge: patient is progressing back to baseline Time Spent with Patient Time attestation: Total time spent providing and/or coordinating discharge services: Time spent: Less than 30 minutes Exam GI: Inspection: non-distended and incision (Intact with glue) GI Palp: Yes Soft to palpation and Yes Tenderness to palpation present (GI) (Incisional) Auscultation: normal bowel sounds DS: Data Data Completed and Pending Pending studies at discharge: Pending at discharge 10/27/20 13:39 Surgical [PTH] Routine Discharge Plan Discharge Attending physician on discharge: Casey Rodas Discharging Clinician: Casey Rodas Patient Disposition: Home, Self-Care Activity: may shower and other - see discharge instructions Diet: as tolerated and regular Wound Care Instructions: other - see discharge instructions Discharge Instructions: May shower, no bathing or soaking for 2 weeks. No lifting greater than 10 lb for the next 6 weeks. Ambulate at least 3-4 times daily around the house, may take stairs. Continue a soft regular diet for the next week. Continue prednisone at [address] Fung's office to discuss discontinuing steroids. Call office for any increasing pain, nausea or vomiting, or problems with incisions. Patient Instructions: Antibiotic Form, Pain Management (DC), Narcotic Safety (DC) Stand Alone Forms: General Discharge Information Follow-up/Referrals: Casey Rodas DO [Physician] - Keep Reg. Scheduled Appt. Norman Ochoa MD [Physician] - Call for Appointment Discharge Medications: New hydrocodone-acetaminophen [[place]] 5-325 mg tablet 1 tablet PO Q4H PRN (Reason: pain) Qty: 20 RF: 0 Continued prednisone 5 mg tablet See Rx Instructions .ROUTE .COMPLEX RF: 0 pantoprazole 40 mg tablet,delayed release (DR/EC) 40 mg PO DAILY RF: 0 polyethylene glycol 3350 [Miralax] 17 gram/dose Powder 17 g PO BID RF: 0 Date of admission: 10/27/20 15:52 Primary Care Provider: Brooklyn Monroy
[2020-10-30 13:58] VITALS: BP 137/81; PULSE 90; RESP 20; TEMP 36.6; O2SAT 100
== END 2020-10-30 14:59 | disposition home or self-care (01) | DRG 331 ==
LOC: ANH2MED 18:20 → ANHSURGERY 11-04 10:37 → ANH2MED 11-04 10:38
PROVIDERS: Admitting Provider Surgery; PCP Family Medicine; Visit Provider Surgery
PROC: 0DTF4ZZ Resection of Right Large Intestine, Percutaneous Endoscopic Approach (ICD-10-PCS; CPT 44204; principal; 2020-10-27 11:30)
DX: K50.912 Crohn's disease, unspecified, with intestinal obstruction (principal)
CPT/HCPCS: 36415; 80048; 85025; 85027; 88307; A9270; C9290; J0131; J0330; J1100; J1170; J1580; J1650; J1885; J2250; J2405; J2704; J2710; J3010; J7030; J7120; J7512

== ENCOUNTER 2021-06-13 14:57 | Emergency (ER) | payer OTHER, SELFPAY ==
[2021-06-13 15:22] VITALS: BP 124/74; PULSE 69; RESP 18; TEMP 36.7; O2SAT 100
--- NOTE | 2021-06-13 16:59 | ED.GENADULT ---
HPI - General Adult General Chief complaint: Skin/Abscess/Foreign Body Stated complaint: Rash on Abdomen and Back Time Seen by Provider: 06/13/21 16:59 Source: patient and RN notes reviewed Mode of arrival: ambulatory Limitations: no limitations History of Present Illness HPI narrative: 20-year-old male presents with complaints of raised, red, and itchy rash to abdomen, chest, and back for 1 day. [place] and noticed a rash today which has increased throughout the day. Benadryl and Hydrocortisone cream without relief. Denies new changes in personal hygiene products or laundry detergent. No new foods or medications. No swelling, burning, bleeding, or drainage. Denies fever, chills, headaches, weakness, fatigue, myalgia, facial swelling, or tongue swelling. Denies chest pain or dyspnea. Denies nausea, vomiting, and abdominal pain. Tolerating po intake well. Remains active. The patient reports he has not been diagnosed with COVID-19. The patient reports he is not waiting for the results of a COVID-19 lab test. The patient reports he does not have weakness, fatigue, or myalgia. The patient reports he does not have a new or worsening cough or shortness of breath. The patient reports he does not have any rhinorrhea, congestion, loss of taste or smell, sore throat, and diarrhea. Denies recent traveling. Denies concerns for COVID-19 or exposures. At this time, the patient is not suspected of having COVID-19. Some parts of this dictation were generated by voice recognition software and may contain typographical and/or grammatical inaccuracies. Related Data Home Medications Medication Instructions Recorded Confirmed infliximab [Remicade] See Rx Instructions .ROUTE .COMPLEX 06/13/21 06/16/21 Allergies Allergy/AdvReac Type Severity Reaction Status Date / Time amoxicillin Allergy Unknown Unknown Verified 06/16/21 09:26 [email or web address] Allergy Unknown Hives Verified 06/16/21 09:26 Review of Systems Review of Systems: CONSTITUTIONAL: Denies fever, chills, sweats. EYES: Denies visual changes, redness, discharge. ENT: Denies rhinorrhea, congestion, sore throat, otalgia. CARDIOVASCULAR: Denies chest pain, palpitations, edema. RESPIRATORY: Denies dyspnea, wheezing, cough. GASTROINTESTINAL: Denies abdominal pain, nausea, vomiting, diarrhea. SKIN: Complaints of raised, red, and itchy rash to abdomen, chest, and back. Denies drainage. MUSCULOSKELETAL: Denies acute back pain, joint pain, or myalgia. NEUROLOGIC: Denies numbness or focal weakness. PSYCHIATRIC: Denies anxiety or depression. All other systems reviewed & are unremarkable except as noted in HPI and below. [facility] Past Medical History Medical History Chronic GERD Crohn's disease Crohn's disease of ileum Nausea and vomiting in adult Surgical History Surgical History History of colon surgery 10/27/20 Hand assisted laparoscopic ileocecectomy with ileocolic anastomosis Hx of tympanostomy tubes Family History Family History Mother Hypothyroidism Other Asthma Depression Family history of alcoholism Family history of bipolar disorder Family history of thyroid disease Social History Social History Social History: Patient is single no children. He lives with his parents. He desires to have his mom is a durable power claim attorney for healthcare. The patient is a full code. Lifelong nonsmoker. No marijuana or illicit drugs. No alcohol use. He works at an [employer]. Smoking status: Never smoker Second hand tobacco smoke exposure: No Alcohol intake: never Substance use: never Substance use type: does not use Gender identity (if verbalized by the patient): Male
== END 2021-06-13 17:15 | disposition home or self-care (01) ==
PROVIDERS: Emergency Provider Nurse Practitioner Family; PCP Family Medicine
DX: L25.9 Unspecified contact dermatitis, unspecified cause (principal); K21.9 Gastro-esophageal reflux disease without esophagitis; K50.90 Crohn's disease, unspecified, without complications
CPT/HCPCS: 99213; G0463

== ENCOUNTER 2021-09-21 12:01 | Emergency (ER) | payer OTHER, SELFPAY ==
--- NOTE | 2021-09-21 12:04 | ED.URI ---
HPI - URI/Sore Throat General Chief Complaint: Upper Respiratory Infection Stated Complaint: congestion and nose stuffy Time Seen by Provider: 09/21/21 12:04 Source: patient and RN notes reviewed History of Present Illness HPI Narrative: Patient is a 21-year-old male who presents the urgent care with complaints of sensation to sneeze, stuffy nose and congestion. Patient states that it started yesterday and he feels that the [place] is helping . Patient denies any fever, chills, nausea, vomiting. Patient states that he was exposed to a sinus infection . Denies of any cough. No other acute complaints. No acute distress noted. Patient aware of the plan of care. Some parts of this dictation were generated by voice recognition software and may contain typographical and/or grammatical inaccuracies. Related Data Home Medications Medication Instructions Recorded Confirmed infliximab [Remicade] See Rx Instructions .ROUTE .COMPLEX 06/13/21 08/23/21 Allergies Allergy/AdvReac Type Severity Reaction Status Date / Time amoxicillin Allergy Unknown Unknown Verified 09/21/21 12:19 [email or web address] Allergy Unknown Hives Verified 09/21/21 12:19 Review of Systems Review of Systems: CONSTITUTIONAL: Denies fever, chills, or sweats. EYES: Denies visual changes, redness, or discharge. ENT: Reports of rhinorrhea, sinus congestion/pressure and postnasal drainage CARDIOVASCULAR: Denies chest pain, palpitations, or edema. RESPIRATORY: Denies cough or dyspnea. GASTROINTESTINAL: Denies abdominal pain, nausea, vomiting, or diarrhea. GENITOURINARY: Denies dysuria or hematuria. SKIN: Denies rash or itching. MUSCULOSKELETAL: Denies back pain, joint pain, or myalgia. NEUROLOGIC: Denies headache, numbness, or weakness. All other systems reviewed are negative, except as documented in HPI. [facility] Past Medical History Medical History Chronic GERD Crohn's disease Crohn's disease of ileum Nausea and vomiting in adult Surgical History Surgical History History of colon surgery 10/27/20 Hand assisted laparoscopic ileocecectomy with ileocolic anastomosis Hx of tympanostomy tubes Family History Family History Mother Hypothyroidism Other Asthma Depression Family history of alcoholism Family history of bipolar disorder Family history of thyroid disease Social History Social History Social History: Patient is single no children. He lives with his parents. He desires to have his mom is a durable power family law attorney for healthcare. The patient is a full code. Lifelong nonsmoker. No marijuana or illicit drugs. No alcohol use. He works at an [employer]. Smoking status: Never smoker Second hand tobacco smoke exposure: No Alcohol intake: never Substance use: never Substance use type: does not use Gender identity (if verbalized by the patient): Male Sexual Orientation (if Verbalized by the Patient): Straight or Heterosexual Spiritual care concerns: No Comments At the time of my signature, I reviewed and agree with the nursing past medical, surgical, social, and family history. There is no relevant family history pertinent to the patient complaint. Exam Narrative: GENERAL: This is a well-nourished, well-developed patient, in no apparent distress. HEAD: normocephalic, atraumatic. EYES: PERRL. Sclera clear/white. Vision is grossly intact. EARS: External ears normal, auditory canals clear and without drainage, TMs normal without perforation. Hearing grossly intact. NOSE: External nose normal with no obvious nasal discharge, nares without redness, clear rhinorrhea. THROAT: Mucous membranes moist, posterior pharynx clear. Moderate postnasal drainage NECK: Neck supple, non-tender without lymph
[2021-09-21 12:10] VITALS: BP 127/75; PULSE 88; RESP 18; TEMP 36.6; O2SAT 100
== END 2021-09-21 12:45 | disposition home or self-care (01) ==
PROVIDERS: Emergency Provider Nurse Practitioner Family; PCP Family Medicine
DX: J00 Acute nasopharyngitis [common cold] (principal)
CPT/HCPCS: 87491; 87591; 99213; G0463

== ENCOUNTER 2021-09-30 16:07 | Emergency (ER) | payer OTHER, SELFPAY ==
[2021-09-30 16:09] VITALS: BP 111/45; PULSE 101; RESP 18; TEMP 36.9; O2SAT 97
[2021-09-30 16:20] VITALS: BP 114/74; RESP 18; O2SAT 99
[2021-09-30] MEDS: predniSONE 20 MG TABLET 60 MG PO (16:53)
[2021-09-30] MEDS: FAMOTIDINE 20 MG TABLET 40 MG PO (16:53)
[2021-09-30] MEDS: EPINEPHrine HCL INJ 1 MG/ML AMPUL 0.3 MG IM (16:53)
[2021-09-30 17:00] VITALS: BP 112/69; PULSE 82; RESP 18; TEMP 37.1; O2SAT 100; O2SAT 99
--- NOTE | 2021-09-30 17:10 | ED.ALLEREA ---
HPI - Allergic Reaction General Chief complaint: Allergic Reaction Stated complaint: Allergic reaction Time Seen by Provider: 09/30/21 16:31 Source: patient and family Mode of arrival: ambulatory Limitations: no limitations History of Present Illness HPI narrative: Patient presents with allergic reaction, hives, itching, flushed face started and swelling of the throat within few minutes after drinking a smoothie 2-1/2-hour prior to arrival to the emergency room. History of allergy to amoxicillin. Possible allergy to peanuts. Related Data Home Medications Medication Instructions Recorded Confirmed infliximab [Remicade] See Rx Instructions .ROUTE .COMPLEX 06/13/21 09/21/21 Allergies Allergy/AdvReac Type Severity Reaction Status Date / Time amoxicillin Allergy Unknown Unknown Verified 09/21/21 12:19 [email or web address] Allergy Unknown Hives Verified 09/21/21 12:19 Review of Systems Review of Systems: CONSTITUTIONAL: Denies fever, chills, or sweats. EYES: Denies visual changes, redness, or discharge. ENT: Denies rhinorrhea, congestion, sore throat, or otalgia. CARDIOVASCULAR: Denies chest pain, palpitations, or edema. RESPIRATORY: Denies cough or dyspnea. GASTROINTESTINAL: Denies abdominal pain, nausea, vomiting, or diarrhea. GENITOURINARY: Denies dysuria or hematuria. SKIN: Denies rash or itching. MUSCULOSKELETAL: Denies back pain, joint pain, or myalgia. NEUROLOGIC: Denies headache, numbness, or weakness. PSYCHIATRIC: Denies anxiety or depression. [facility] Past Medical History Medical History Chronic GERD Crohn's disease Crohn's disease of ileum Nausea and vomiting in adult Surgical History Surgical History History of colon surgery 10/27/20 Hand assisted laparoscopic ileocecectomy with ileocolic anastomosis Hx of tympanostomy tubes Family History Family History Mother Hypothyroidism Other Asthma Depression Family history of alcoholism Family history of bipolar disorder Family history of thyroid disease Social History Social History Social History: Patient is single no children. He lives with his parents. He desires to have his mom is a durable power bottom sprayer for healthcare. The patient is a full code. Lifelong nonsmoker. No marijuana or illicit drugs. No alcohol use. He works at an [employer]. Smoking status: Never smoker Second hand tobacco smoke exposure: No Alcohol intake: never Substance use: never Substance use type: does not use Gender identity (if verbalized by the patient): Male Sexual Orientation (if Verbalized by the Patient): Straight or Heterosexual Spiritual care concerns: No Exam Narrative: General appearance: Well-developed, well-nourished, restless because of itching Skin: Flushed erythematous face, hives Head: Normocephalic, nontraumatic Eyes: Clear conjunctiva ENT: Oropharynx normal, ears normal, nose normal Neck: Supple, nontender Chest and respiratory: Airway patent, no respiratory distress, no accessory muscle use Heart: Regular rate/rhythm Abdomen: Soft, nontender, no organomegaly, quiet bowel sounds Vascular: Normal peripheral pulses, normal capillary refill. Musculoskeletal: Normal range of motion, nontender back Neurologic: Alert and oriented ?3, [employer] is normal as tested, no gross motor deficit Course Course Emergency Course: Improving Reevaluation(s) Reevaluation #1: Patient report improvement but still have slight swelling of the throat. Date: 09/30/21
[2021-09-30] MEDS: EPINEPHrine HCL INJ 1 MG/ML AMPUL 0.5 MG IM (17:56)
[2021-09-30 18:02] VITALS: BP 138/74; PULSE 83; RESP 18; O2SAT 100
--- NOTE | 2021-09-30 18:07 | PC.NURSE ---
Awaiting discharge papers from Dr. Sterling
== END 2021-09-30 18:25 | disposition home or self-care (01) ==
PROVIDERS: Emergency Provider Emergency Medicine; PCP Family Medicine
DX: T78.1XXA Other adverse food reactions, not elsewhere classified, initial encounter (principal); K21.9 Gastro-esophageal reflux disease without esophagitis; Z87.19 Personal history of other diseases of the digestive system
CPT/HCPCS: 96372; 99284; A9270; J0171; J7512

== ENCOUNTER 2023-04-15 11:11 | Emergency (ER) | payer OTHER, SELFPAY ==
--- NOTE | 2023-04-15 11:16 | ED.SKABFB ---
HPI - Skin/Abscess/Foreign Bdy General Chief complaint: Skin/Abscess/Foreign Body Stated complaint: poison jocelyn or oak Time Seen by Provider: 04/15/23 11:16 Source: patient and RN notes reviewed History of Present Illness HPI narrative: Patient is a 22-year-old male who presents to urgent care with complaints of possible poison jocelyn. Patient states he works with the [employer] in on Sunday they came in contact with the possibility of poison jocelyn or poison sumac. Patient states that he has a rash to the inner right ankle, on his calf, left hip and right arm. Patient states he use fungal cream on the area without relief. Patient states that it itches much worse today. No other acute complaints. No acute distress noted. Patient aware of the plan of care. Some parts of this dictation were generated by voice recognition software and may contain typographical and/or grammatical inaccuracies. Related Data Home Medications Medication Instructions Recorded Confirmed infliximab 100 mg intravenous See Rx Instructions .Route .COMPLEX 06/13/21 01/01/23 solution (Remicade) Allergies Allergy/AdvReac Type Severity Reaction Status Date / Time amoxicillin Allergy Unknown Unknown Verified 01/01/23 12:14 [email or web address] Allergy Unknown Hives Verified 01/01/23 12:14 Review of Systems Review of Systems: CONSTITUTIONAL: Denies fever, chills, or sweats. EYES: Denies visual changes, redness, or discharge. ENT: Denies rhinorrhea, congestion, sore throat, or otalgia. CARDIOVASCULAR: Denies chest pain, palpitations, or edema. RESPIRATORY: Denies cough or dyspnea. GASTROINTESTINAL: Denies abdominal pain, nausea, vomiting, or diarrhea. GENITOURINARY: Denies dysuria or hematuria. SKIN: Reports an itchy rash to the right ankle, right arm, around the waist and calf MUSCULOSKELETAL: Denies back pain, joint pain, or myalgia. NEUROLOGIC: Denies headache, numbness, or weakness. All other systems reviewed are negative, except as documented in HPI. [facility] Past Medical History Medical History Chronic GERD Crohn's disease Crohn's disease of ileum Nausea and vomiting in adult Surgical History Surgical History History of colon surgery 10/27/20 Hand assisted laparoscopic ileocecectomy with ileocolic anastomosis Hx of tympanostomy tubes Family History Family History Mother Hypothyroidism Other Asthma Depression Family history of alcoholism Family history of bipolar disorder Family history of thyroid disease Social History Social History Social History: Patient is single no children. He lives with his parents. He desires to have his mom is a durable power deputy prosecuting attorney for healthcare. The patient is a full code. Lifelong nonsmoker. No marijuana or illicit drugs. No alcohol use. He works at an [employer]. Second hand tobacco smoke exposure: No Alcohol intake: never Substance use: never Substance use type: does not use Living arrangements: with family Occupation/Education: occupation Gender identity (if verbalized by the patient): Male Sexual Orientation (if Verbalized by the Patient): Straight or Heterosexual Spiritual care concerns: No Comments At the time of my signature, I reviewed and agree with the nursing past medical, surgical, social, and family history. There is no relevant family history pertinent to the patient complaint. Exam Narrative: GENERAL: This is a well-nourished, well-developed patient, in no apparent distress. HEAD: normocephalic, atraumatic. EYES: PERRL. Sclera clear/white. Vision is grossly intact. EARS: External ears normal NOSE: External nose normal with no obvious nasal discharge, nares without redness, no rhinorrhea. THROAT: Mucous mem
[2023-04-15 11:18] VITALS: BP 137/79; PULSE 63; RESP 20; TEMP 37; O2SAT 100
== END 2023-04-15 11:34 | disposition home or self-care (01) ==
PROVIDERS: Emergency Provider Nurse Practitioner Family; PCP Family Medicine
DX: L23.7 Allergic contact dermatitis due to plants, except food (principal); K21.9 Gastro-esophageal reflux disease without esophagitis; K50.90 Crohn's disease, unspecified, without complications
CPT/HCPCS: 99213; G0463

== ENCOUNTER 2023-05-31 13:15 | Emergency (ER) | payer OTHER, SELFPAY ==
[2023-05-31 13:22] VITALS: BP 115/60; PULSE 71; RESP 16; TEMP 36.6; O2SAT 100
--- NOTE | 2023-05-31 13:25 | ED.SKABFB ---
HPI - Skin/Abscess/Foreign Bdy General Chief complaint: Skin/Abscess/Foreign Body Stated complaint: poison jocelyn or oak Source: patient and RN notes reviewed History of Present Illness HPI narrative: 22-year-old male presents to urgent care was 0.7 itchy and burning rash to bilateral arms. Patient states he 1st noticed this yesterday. Patient reports cutting injuries yesterday. Patient is also reporting rash areas to bilateral legs and face. Denies any fevers, chills, shortness of breath, chest pain, or vomiting. Related Data Home Medications Medication Instructions Recorded Confirmed infliximab 100 mg intravenous See Rx Instructions .Route .COMPLEX 06/13/21 04/30/23 solution (Remicade) Allergies Allergy/AdvReac Type Severity Reaction Status Date / Time amoxicillin Allergy Unknown Unknown Verified 01/01/23 12:14 [email or web address] Allergy Unknown Hives Verified 01/01/23 12:14 banana Allergy Anaphylaxis Verified 04/30/23 10:45 Review of Systems Review of Systems: CONSTITUTIONAL: Denies fever, chills, or sweats. EYES: Denies visual changes, redness, or discharge. ENT: Denies otalgia and sore throat CARDIOVASCULAR: Denies chest pain, palpitations, or edema. RESPIRATORY: Denies cough or dyspnea. GASTROINTESTINAL: Denies abdominal pain, nausea, vomiting, or diarrhea. GENITOURINARY: Denies dysuria or hematuria. SKIN: Rash MUSCULOSKELETAL: Denies back pain, joint pain, or myalgia. NEUROLOGIC: Denies headache, numbness, or weakness. Pertinent positives per HPI. [facility] Past Medical History Medical History Chronic GERD Crohn's disease Crohn's disease of ileum Nausea and vomiting in adult Surgical History Surgical History History of colon surgery 10/27/20 Hand assisted laparoscopic ileocecectomy with ileocolic anastomosis Hx of tympanostomy tubes Family History Family History Mother Hypothyroidism Other Asthma Depression Family history of alcoholism Family history of bipolar disorder Family history of thyroid disease Social History Social History Social History: Patient is single no children. He lives with his parents. He desires to have his mom is a durable power research attorney for healthcare. The patient is a full code. Lifelong nonsmoker. No marijuana or illicit drugs. No alcohol use. He works at an [employer]. Second hand tobacco smoke exposure: No Alcohol intake: never Substance use: never Substance use type: does not use Living arrangements: with family Occupation/Education: occupation Gender identity (if verbalized by the patient): Male Sexual Orientation (if Verbalized by the Patient): Straight or Heterosexual Spiritual care concerns: No Comments At the time of my signature, I reviewed and agree with the nursing past medical, surgical, social, and family history. There is no relevant family history pertinent to the patient complaint. Exam Narrative: GENERAL: This is a well-nourished, well-developed patient, in no apparent distress. HEAD: normocephalic, atraumatic. EYES: Sclera clear/white. Vision is grossly intact. EARS: External ears normal, auditory canals clear and without drainage. Hearing grossly intact. NOSE: External nose normal with no obvious nasal discharge, nares without redness, no rhinorrhea. THROAT: Mucous membranes moist, posterior pharynx clear. NECK: Neck supple, non-tender without lymphadenopathy, masses or thyromegaly. CARDIOVASCULAR: Regular rate RESPIRATORY: No respiratory distress SKIN: erythremic papules and patches to bilateral AC areas, biltaeral lower orbits, and sporadic papules to lower legs. NEURO: awake, alert, and oriented to person, place and time. There were no obvious focal neurologic ab
== END 2023-05-31 13:32 | disposition home or self-care (01) ==
PROVIDERS: Emergency Provider Nurse Practitioner Family; PCP Family Medicine
DX: L25.9 Unspecified contact dermatitis, unspecified cause (principal); K21.9 Gastro-esophageal reflux disease without esophagitis; K50.90 Crohn's disease, unspecified, without complications
CPT/HCPCS: 99213; G0463

== ENCOUNTER 2023-06-03 19:02 | Emergency (ER) | payer OTHER, SELFPAY ==
[2023-06-03 19:10] VITALS: BP 126/56; PULSE 72; RESP 20; TEMP 37.6; O2SAT 100
[2023-06-03 19:22] VITALS: BP 126/56; PULSE 72; RESP 20; TEMP 37.6; O2SAT 100
--- NOTE | 2023-06-03 19:26 | ED.SKABFB ---
HPI - Skin/Abscess/Foreign Bdy General Chief complaint: Skin/Abscess/Foreign Body Stated complaint: Poision Misty History of Present Illness HPI narrative: patient presents with spreading of poison misty to right eye area and groin. patient was started on oral steroids 3 days ago patient brought in with mother due to spreading of rash no respiratory problems Related Data Home Medications Medication Instructions Recorded Confirmed infliximab 100 mg intravenous See Rx Instructions .Route .COMPLEX 06/13/21 06/03/23 solution (Remicade) Allergies Allergy/AdvReac Type Severity Reaction Status Date / Time amoxicillin Allergy Severe Anaphylaxis Verified 06/03/23 19:35 banana Allergy Severe Anaphylaxis Verified 06/03/23 19:22 [email or web address] Allergy Severe Anaphylaxis Verified 06/03/23 19:35 Review of Systems Review of Systems: CONSTITUTIONAL: Denies fever, chills, or sweats. EYES: Denies visual changes, redness, or discharge. ENT: Denies rhinorrhea, congestion, sore throat, or otalgia. CARDIOVASCULAR: Denies chest pain, palpitations, or edema. RESPIRATORY: Denies cough or dyspnea. GASTROINTESTINAL: Denies abdominal pain, nausea, vomiting, or diarrhea. GENITOURINARY: Denies dysuria or hematuria. SKIN: Denies rash or itching. MUSCULOSKELETAL: Denies back pain, joint pain, or myalgia. NEUROLOGIC: Denies headache, numbness, or weakness. PSYCHIATRIC: Denies anxiety or depression. [facility] Past Medical History Medical History Chronic GERD Crohn's disease Crohn's disease of ileum Nausea and vomiting in adult Surgical History Surgical History History of colon surgery 10/27/20 Hand assisted laparoscopic ileocecectomy with ileocolic anastomosis Hx of tympanostomy tubes Family History Family History Mother Hypothyroidism Other Asthma Depression Family history of alcoholism Family history of bipolar disorder Family history of thyroid disease Social History Social History Social History: Patient is single no children. He lives with his parents. He desires to have his mom is a durable power assistant county attorney for healthcare. The patient is a full code. Lifelong nonsmoker. No marijuana or illicit drugs. No alcohol use. He works at an [employer]. Second hand tobacco smoke exposure: No Alcohol intake: never Substance use: never Substance use type: does not use Living arrangements: with family Occupation/Education: occupation Gender identity (if verbalized by the patient): Male Sexual Orientation (if Verbalized by the Patient): Straight or Heterosexual Spiritual care concerns: No Comments At time of signature, agree with nursing past medical, surgical, social and family history. There is no relevant family history pertinent to the presenting complaint Exam Narrative: GENERAL: Well-appearing, well-nourished, and in no acute distress. HEAD: Normocephalic, atraumatic. EYES: PERRLA and EOMI. ENT: Nares clear, no rhinorrhea or epistaxis. Mucous membranes moist. NECK: Supple. CHEST: Clear to auscultation. No respiratory distress. HEART: Regular rate and rhythm. No murmur heard. Normal peripheral pulses. ABDOMEN: Soft, nontender, nondistended, normal active bowel sounds. EXTREMITIES: Normal range of motion. No edema. SKIN: Warm, dry, no rash. Area around her right eye, groin both arms and both legs RASH CONSISTENT WITH RHUS DERMATITIS. LINEAR JADE WITH WET LIKE APPEARS ON NEW AREAS. DIFFERENT STAGES PRESENT. REDNESS TO LESIONS. NO SIGNS OF INFECTION OR CELLULITIS/ABSCESS. NO VESICLES. NO ULCERATIONS. NO RAISED URTICARIAL LESIONS. NO LESIONS ALONG THE WAISTBAND OR IN WEB SPACES. NO BURROWS. NO PETECHIAE. NEURO: No focal deficits. Alert and oriented x3. [place]
[2023-06-03] MEDS: methylPREDNISolone SOD SUCC 125 MG VIAL IM (19:32)
== END 2023-06-03 19:52 | disposition home or self-care (01) ==
PROVIDERS: Emergency Provider Nurse Practitioner Family; PCP Family Medicine
DX: L23.7 Allergic contact dermatitis due to plants, except food (principal)
CPT/HCPCS: 96372; 99213; G0463; J2930

== ENCOUNTER 2023-06-27 16:14 | Emergency (ER) | payer OTHER, SELFPAY ==
[2023-06-27 16:19] VITALS: BP 104/64; PULSE 70; RESP 16; TEMP 36.6; O2SAT 99
--- NOTE | 2023-06-27 16:52 | ED.EAR ---
HPI - Ear Problem General Chief complaint: Ear Stated complaint: left ear Time Seen by Provider: 06/27/23 16:53 Source: patient Mode of arrival: ambulatory Limitations: no limitations History of Present Illness HPI Narrative: 22-year-old male presents with complaint of left ear pain for 4 days. Reports that pain started 1 day after [place] a [place] park. No change to hearing. Denies drainage. Afebrile. All systems reviewed and negative except as noted above. Related Data Home Medications Medication Instructions Recorded Confirmed infliximab 100 mg intravenous See Rx Instructions .Route .COMPLEX 06/13/21 06/27/23 solution (Remicade) Allergies Allergy/AdvReac Type Severity Reaction Status Date / Time amoxicillin Allergy Severe Anaphylaxis Verified 06/27/23 16:32 banana Allergy Severe Anaphylaxis Verified 06/27/23 16:32 cefdinir Allergy Severe Anaphylaxis Verified 06/27/23 16:32 Review of Systems Review of Systems: CONSTITUTIONAL: Denies fever, chills, or sweats. EYES: Denies visual changes, redness, or discharge. ENT: Denies rhinorrhea, congestion, sore throat. Reports left ear pain. CARDIOVASCULAR: Denies chest pain, palpitations, or edema. RESPIRATORY: Denies cough or dyspnea. GASTROINTESTINAL: Denies abdominal pain, nausea, vomiting, or diarrhea. GENITOURINARY: Denies dysuria or hematuria. SKIN: Denies rash or itching. MUSCULOSKELETAL: Denies back pain, joint pain, or myalgia. NEUROLOGIC: Denies headache, numbness, or weakness. PSYCHIATRIC: Denies anxiety or depression. All other systems reviewed are negative, except as documented in HPI. [facility] Past Medical History Medical History Chronic GERD Crohn's disease Crohn's disease of ileum Nausea and vomiting in adult Surgical History Surgical History History of colon surgery 10/27/20 Hand assisted laparoscopic ileocecectomy with ileocolic anastomosis Hx of tympanostomy tubes Family History Family History Mother Hypothyroidism Other Asthma Depression Family history of alcoholism Family history of bipolar disorder Family history of thyroid disease Social History Social History Social History: Patient is single no children. He lives with his parents. He desires to have his mom is a durable power claim attorney for healthcare. The patient is a full code. Lifelong nonsmoker. No marijuana or illicit drugs. No alcohol use. He works at an [employer]. Second hand tobacco smoke exposure: No Alcohol intake: never Substance use: never Substance use type: does not use Living arrangements: with family Occupation/Education: occupation Gender identity (if verbalized by the patient): Male Sexual Orientation (if Verbalized by the Patient): Straight or Heterosexual Spiritual care concerns: No Comments At time of signature, agree with nursing past medical, surgical, social and family history. There is no relevant family history pertinent to the presenting complaint. Exam Narrative: GENERAL: This is a well-nourished, well-developed patient, in no apparent distress. HEAD: normocephalic, atraumatic. EYES: PERRL. Sclera clear/white. Vision is grossly intact. EARS: External ears normal, cerumen impaction to bilateral ear canals. Cerumen removed from left ear canal with lighted curette. Some cerumen remains but left TM is visible without infection. L ear canal erythematous, slightly swollen. Unable to evaluate right TM but patient not having any right ear complaints. NOSE: External nose normal with no obvious nasal discharge, nares without redness, no rhinorrhea. THROAT: Mucous membranes moist, posterior pharynx clear. NECK: Neck supple, non-tender without lymphadenopathy, masses or thyrom
== END 2023-06-27 17:04 | disposition home or self-care (01) ==
PROVIDERS: Emergency Provider Nurse Practitioner Family; PCP Family Medicine
DX: H60.502 Unspecified acute noninfective otitis externa, left ear (principal); H61.23 Impacted cerumen, bilateral; K21.9 Gastro-esophageal reflux disease without esophagitis; K50.90 Crohn's disease, unspecified, without complications
CPT/HCPCS: 69210; 99213; G0463

== ENCOUNTER 2023-07-03 16:53 | Emergency (ER) | payer OTHER, SELFPAY ==
[2023-07-03 17:05] VITALS: BP 116/64; PULSE 69; RESP 16; TEMP 36.6; O2SAT 99
--- NOTE | 2023-07-03 17:57 | ED.EAR ---
HPI - Ear Problem General Chief complaint: Ear Stated complaint: ear infection Time Seen by Provider: 07/03/23 17:52 Source: patient, RN notes reviewed and old records reviewed Mode of arrival: ambulatory Limitations: no limitations History of Present Illness HPI Narrative: 22-year-old male who presents to [facility] with complaints of right ear discomfort for the past 1 days was seen for left ear discomfort last week and diagnosed with otitis externa of left ear. Patient reports that he has been using drops to his right ear that he got for left without improvement. Patient reports also nasal drainage and congestion with body aches for over a week now also. Patient reports that he has not had a known fever. MD Complaint: ear pain and other (nasal drainage, body aches, sneezing) Location: right ear Severity: mild Discharge from ear: Reports no Treatment prior to arrival: eardrops Related Data Home Medications Medication Instructions Recorded Confirmed infliximab 100 mg intravenous See Rx Instructions .Route .COMPLEX 06/13/21 06/27/23 solution (Remicade) Allergies Allergy/AdvReac Type Severity Reaction Status Date / Time amoxicillin Allergy Severe Anaphylaxis Verified 06/27/23 16:32 banana Allergy Severe Anaphylaxis Verified 06/27/23 16:32 cefdinir Allergy Severe Anaphylaxis Verified 06/27/23 16:32 Review of Systems Review of Systems: CONSTITUTIONAL: Denies malaise, chills, sweats, or fever. EYES: Denies visual changes, redness, or discharge. ENT: Reports rhinorrhea, congestion, sinus pain, right otalgia no sore throat. CARDIOVASCULAR: Denies chest pain, palpitations, or edema. RESPIRATORY: Reports cough.? Denies dyspnea. GASTROINTESTINAL: Denies abdominal pain, nausea, vomiting, diarrhea SKIN: Denies rash or itching. MUSCULOSKELETAL: Denies myalgia. NEUROLOGIC: Denies headache. All systems reviewed & are unremarkable except as noted in HPI and below PMFSH Past Medical History Medical History Chronic GERD Crohn's disease Crohn's disease of ileum Nausea and vomiting in adult Surgical History Surgical History History of colon surgery 10/27/20 Hand assisted laparoscopic ileocecectomy with ileocolic anastomosis Hx of tympanostomy tubes Family History Family History Mother Hypothyroidism Other Asthma Depression Family history of alcoholism Family history of bipolar disorder Family history of thyroid disease Social History Social History Social History: Patient is single no children. He lives with his parents. He desires to have his mom is a durable power marketing professor for healthcare. The patient is a full code. Lifelong nonsmoker. No marijuana or illicit drugs. No alcohol use. He works at an [employer]. Second hand tobacco smoke exposure: No Alcohol intake: never Substance use: never Substance use type: does not use Living arrangements: with family Occupation/Education: occupation Gender identity (if verbalized by the patient): Male Sexual Orientation (if Verbalized by the Patient): Straight or Heterosexual Spiritual care concerns: No Comments At time of signature, agree with nursing past medical, surgical, social and family history. There is no relevant family history pertinent to the presenting complaint Exam Narrative: GENERAL: Well-appearing, well-nourished, and in no acute distress. HEAD: Normocephalic EYES: PERRLA, conjunctivae clear ENT: Nares clear, turbinates edematous and erythematous, clear discharge. Mucous membranes moist.Right ear canal red and some excoriation no acute swelling TM pearly mosquera with dull light reflex bilaterally; no tragal tenderness. Oropharynx erythematous without lesions. Tonsi
== END 2023-07-03 18:10 | disposition home or self-care (01) ==
PROVIDERS: Emergency Provider Registered Nurse; PCP Family Medicine
DX: H60.91 Unspecified otitis externa, right ear (principal); J06.9 Acute upper respiratory infection, unspecified; K21.9 Gastro-esophageal reflux disease without esophagitis; K50.90 Crohn's disease, unspecified, without complications
CPT/HCPCS: 99213; G0463

== ENCOUNTER 2025-01-08 15:36 | Emergency (ER) | payer OTHER, SELFPAY ==
[2025-01-08 15:40] VITALS: BP 133/71; PULSE 77; RESP 20; TEMP 36.7; O2SAT 100
--- NOTE | 2025-01-08 15:44 | ED_ITS ---
HPI - URI/Sore Throat General Chief Complaint: Upper Respiratory Infection Stated Complaint: poss sinus infection Time Seen by Provider: 01/08/25 15:44 Source: patient, RN notes reviewed and old records reviewed Mode of arrival: ambulatory Limitations: no limitations History of Present Illness HPI Narrative: 24-year-old male presents to [facility] with complaints of a scratchy throat, stuffy nose, runny nose. [place] warm but did not measure his temperature. Patient reports symptoms may have started on Sunday. reports that he did take an allergy pill last night. Onset (ago): day(s) (5) Related Data Home Medications ?Medication ?Instructions ?Recorded ?Confirmed ?Last Taken ?Type infliximab 100 mg intravenous See Rx Instructions .Route .COMPLEX 06/13/21 10/01/24 Unknown History solution (Remicade) Allergies Allergy/AdvReac Type Severity Reaction Status Date / Time amoxicillin Allergy Severe Anaphylaxis Verified 12/05/24 14:23 banana Allergy Severe Anaphylaxis Verified 12/05/24 14:23 cefdinir Allergy Severe Anaphylaxis Verified 12/05/24 14:23 Review of Systems Review of Systems: All systems reviewed & are unremarkable except as noted in HPI and below Constitutional: Constitutional: Reports no additional constitutional complaints ENT: Reports as per HPI Cardiovascular: Cardiovascular: Reports no additional cardiovascular complaints, Denies chest pain and Denies dyspnea Respiratory: Respiratory: Reports no additional respiratory complaints, Denies chest congestion, Denies cough and Denies dyspnea Musculoskeletal: Musculoskeletal: Reports no additional musculoskeletal complaints Integumentary/Breasts: Skin/Breast: Reports system reviewed and no additional complaints, except as docu PMFSH Past Medical History Medical History Crohn's disease Nausea and vomiting in adult Crohn's disease of ileum Chronic GERD Surgical History Surgical History History of colon surgery 10/27/20 Hand assisted laparoscopic ileocecectomy with ileocolic anastomosis Hx of tympanostomy tubes Family History Family History Mother Hypothyroidism Other Asthma Depression Family history of alcoholism Family history of bipolar disorder Family history of thyroid disease Social History Social History (Reviewed 01/09/25 @ 08:11 by STEFAN Beltran Social History: Patient is single no children. He lives with his parents. He desires to have his mom is a durable power bankruptcy attorney for healthcare. The patient is a full code. Lifelong nonsmoker. No marijuana or illicit drugs. No alcohol use. He works at an [employer]. Smoking status: Never smoker Second hand tobacco smoke exposure: No Alcohol intake: never Substance use: never Substance use type: does not use Living arrangements: with family Occupation/Education: occupation Gender identity (if verbalized by the patient): Male Sexual Orientation (if Verbalized by the Patient): Straight or Heterosexual Spiritual care concerns: No Comments At the time of my signature, I reviewed and agree with the nursing past medical, surgical, social, and family history. There is no relevant family history pertinent to the patient complaint. Exam Const: General: cooperative, healthy appearing, comfortable, no acute distress, well developed, alert and well nourished Nutritional Appearance: well nourished Orientation/consciousness: patient oriented x3 Limitations: no limitations HENMT: Head: normal to inspection Ears: hearing grossly normal bilaterally, external ears normal, TM's normal bilaterally, EAC's normal, mastoids normal and no periauricular adenopathy Face/Nose/Sinus: Nasal discharge present clear bilateral Mouth: Yes Normal oral and palatal mucosa present, Yes lip normal, Yes tongue normal and Yes moist mucous membranes Throat: posterior oropharynx normal, uvula midline, postnasal drainage and no uvular edema Eyes: General: appearance normal, both eyes and all related structures Alignment and Position: alignment normal Neck: Neck: normal visual inspection, full ROM, no lymphadenopathy and no meningeal signs Chest: Chest palpation & inspection: normal inspection of the chest Resp: Effort & Inspection: normal respiratory effort and able to speak in complete sentences Auscultation: clear to auscultation bilaterally, no crackles, no rales, no rhonchi and no wheezes Cardio: Rate: regular rate Skin: General skin exam: normal color and no rashes or lesions noted Neuro: General: patient oriented x3, gait normal, moves all extremities and no meningeal signs Cognition (Neuro): normal cognition Speech: normal speech Gait exam (Neuro): Normal gait present Extrem: General: normal to inspection, full ROM, capillary refill normal and normal gait Psych: Appearance: grossly normal and well kempt Mental Status: mental status grossly normal Speech and movement: Normal speech and movement present and Clear speech present Affect: normal affect Attitude: cooperative Course Course Level of Care: Express Care Visit Vital Signs Vital signs: Vital Signs Temperature 98.1 F 01/08/25 15:40 Pulse Rate 77 01/08/25 15:40 Respiratory Rate 20 01/08/25 15:40 Blood Pressure 133/71 01/08/25 15:40 Pulse Oximetry 100 01/08/25 15:40 Oxygen Delivery Room Air 01/08/25 15:40 Temperature 98.1 F 01/08/25 15:40 Pulse Rate 77 01/08/25 15:40 Respiratory Rate 20 01/08/25 15:40 Blood Pressure 133/71 01/08/25 15:40 Pulse Oximetry 100 01/08/25 15:40 Oxygen Delivery Room Air 01/08/25 15:40 Reviewed MDM - URI/Sore Throat MDM Narrative Medical decision making narrative: Patient sitting comfortably in exam. Nontoxic vitals stable. Patient in no acute distress. Patient presents with couple day history URI symptoms, allergy symptoms. No acute findings other than rhinorrhea, clear as well as postnasal drainage. Patient appropriate for outpatient treatment and follow-up Discharge instructions reviewed with patient, as well as provided in writing per nursing staff. The instructions also include specific and strict return/GO TO THE ER as well as f/u information. All questions have been answered, and the patient deny any further questions with discharge and discharge plan. Some parts of this dictation were generated by voice recognition software and may contain typographical and/or grammatical inaccuracies. Differential Diagnosis Differential diagnosis: Likely upper respiratory infection, otitis media, sinusitis, viral infection, bronchitis, influenza and pharyngitis Critical Care Time Critical Care Time Critical Care Time: No Discharge Plan Discharge Clinical Impression: PND (post-nasal drip) Upper respiratory infection Qualifiers: URI type: unspecified viral URI Qualified Code(s): J06.9 - Acute upper respiratory infection, unspecified Patient Disposition: Home, Self-Care Condition: Stable Instructions: Antibiotic Form, Upper Respiratory Infection (ED), Postnasal Drip (DC) Additional Instructions: Your symptoms are likely due to a viral illness, which is not treated with antibiotics. Typically viral infections last 7-10 days, can linger for couple of weeks. It is very important to treat your symptoms. Drink plenty of water, Gatorade, Pedialyte, ice pops or Jell-O. -Alternate Tylenol and Motrin per package directions for fever or pain. You can alternate every 4 hours -Antihistamine medication such as Zyrtec/Claritin/Lorena during the day can help improve symptoms. -doing daily nasal irrigations can help relieve pressure your sinuses. Things like a Neti pot -Use Flonase twice a day for 5 days then daily to help reduce the inflammation and dry up your sinuses. -You can also use Mucinex. Be sure to drink plenty of water with this medication at least 8 ounces with every dose and it is important to drink 8 to 10 glasses of water per day. Water is a natural decongestant -Eat and drink things that are easy to swallow, like tea or soup, or popsicles. -Oral rinses such as: Salt water gargles and/or may use topical anesthetic (eg. Chloraseptic spray) or lozenges to relieve dryness or throat pain). -Frequent hand washing or hand research development manager is one of the best ways to prevent spread of infection. -Using a vaporizer or humidifier at night will also help thin secretions and help with coughing up phlegm. -Follow up with primary care provider in 7-10 days if condition is not improving - For new or worsening symptoms go directly to the nearest ER Patient Language: Telugu Prescriptions: No Action infliximab [Remicade] 100 mg Recon Soln See Rx Instructions .ROUTE .COMPLEX Rx Instructions: every 2 months Follow-up/Referrals: Brooklyn Monroy MD [Primary Care Provider] - 1 Week ([facility] follow up ) Time of Disposition: 15:55
--- OUTSIDE RECORDS SUMMARY | 2025-01-08 17:18 | XMS_ITS | Clinical Summary ---
Author Organization [facility] [place] [address] [place]to Address [address] [place] [address] Care Team Providers Care Subsorter Name Role Phone Brooklyn Monroy MD Primary Care Provider [phone] Allergies Active Allergy Reactions Criticality Noted Date Comments Amoxicillin Rash Medium 02/25/2021 Cephalosporins Itching,Swelling,Urt icar ia Medium 03/26/2007 Overall hives, Ankle swelling Cefdinir Hives Medium 04/19/2023 Medications metoclopramide (REGLAN) 10 mg tabletIndicatio ns:Gastroenteri tis,History of Crohn's disease Take 1 tablet (10 mg total) by mouth 4 (four) times a day as needed (nausea) 30 tablet 1 Active ciprofloxacin (CILOXAN) 0.3 % ophthalmic solutionIndicat ions:Corneal irritation of right eye Administer 1 drop into the right eye every 2 (two) hours Administer 1 drop, every 2 hours, while awake, for 2 days. Then 1 drop, every 4 hours, while awake, for the next 5 days. 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 Gender Identity Not on file Sexual Orientation Not on file Obstetrics History Last Filed Vital Signs Vital Sign Reading Time Taken Comments Blood Pressure 118/68 04/19/2023 11:34 AM CDT Pulse 67 04/19/2023 11:34 AM CDT Temperature 36.6 C (97.9 F) 04/19/2023 11:34 AM CDT Respiratory Rate 16 04/19/2023 11:34 AM CDT Oxygen Saturation 98% 04/19/2023 11:34 AM CDT Inhaled Oxygen Concentration - - Weight 81.6 kg (180 lb) 04/19/2023 11:34 AM CDT Height 180.3 cm (5' 11 ) 04/19/2023 11:34 AM CDT Body Mass Index 25.1 04/19/2023 11:34 AM CDT Plan of Treatment Health Maintenance Due Date Last Done Comments Depression Screening 2000 Hepatitis C Screening 2000 DTaP/Tdap/Td Vaccine (6 - Tdap) 2011 03/08/2006, 01/13/2002, 01/14/2001, Additional history exists Varicella Vaccines (1 of 2 - 13+ 2-dose series) 2013 HPV Vaccines (1 - Male 3-dose series) 2015 Regular Well Visit/Exam 18-64 2018 Influenza Vaccine (#1) 2024 07/31/2009 Hepatitis B Screening Completed 04/16/2001 , 2000, 2000 Pneumococcal vaccine <65 Aged Out No longer eligible based on patient's age to complete this topic Insurance [facility] [id number] Care Teams Subsorter Relationship Specialty Start Date End Date Brooklyn Monroy MD PCP - General Family Medicine 02/25/21
--- OUTSIDE RECORDS SUMMARY | 2025-01-08 17:18 | XMS_ITS | Referral Summary ---
Author Organization [facility] Address [address] [place] [address] Care Team Providers Care Lens Mold Setter Name Role Phone Kathleen Troncoso MD Unavailable Source Comments [facility],non-owned Affiliates and Associated Physician Practices is amultiple site organization consisting of ambulatory clinics and hospital sitesin [place], [place], [place] and [place]. This disclosure is being madepursuant to the Care Everywhere program and may not contain all information available regarding this patient. Last updated 18.[facility] Allergies Active Allergy Reactions Criticality Noted Date Comments Amoxicillin Urticaria,Itching,[facility] 09/09/2007 Hives over chest & arms; bilateral ankle swellilng Cephalosporins Urticaria,Itching,[facility] mirela 03/26/2007 Omnicef Urticaria,Itching,[facility] 03/26/2007 Overall hives, Ankle swelling Medications Be aware that medications may not be up to date on this document. Always verify current medications with the patient. No known medications Immunizations Name Administration Dates Next Due DTaP VACCINE IM (6wk-6yrs) 03/08/2006,,01/14/2001,2000,09/06 HEP A PEDS 2 DOSE 03/08/2006 HEP B VACCINE, PED/ADOL 04/16/2001,2000, HIB BOOSTER 01/13/2002,01/14/2001,2000 ,2000 INFLUENZA VACCINE 07/31/2009 MMR 03/08/2006,07/12/2001 PNEUMOCOCCAL CONJ, PEDS 07/12/2001,01/14/2001,,2000 POLIO IPV 03/08/2006,10/14/2001,2000 ,2000 Social History Tobacco Use Types Packs/Day Years Used Date Smoking Tobacco: Never Assessed Sex and Gender Information Value Date Recorded Sex Assigned at Not on file Gender Identity Not on file Sexual Orientation Not on file Last Filed Vital Signs Vital Sign Reading Time Taken Comments Blood Pressure - - Pulse - - Temperature 37.1 C (98.7 F) 09/13/2011 10:01 AM INFRASTRUCTURE DIRECTOR Respiratory Rate 18 11/16/2010 11:28 AM INFRASTRUCTURE DIRECTOR Oxygen Saturation - - Inhaled Oxygen Concentration - - Weight 38.6 kg (85 lb) 09/13/2011 10:01 AM INFRASTRUCTURE DIRECTOR Height - - Body Mass Index - - Plan of Treatment Not on file Administered Medications Care Teams Lens Mold Setter Relationship Specialty Start Date End Date Kathleen Troncoso MD PCP - Pediatrics 07/31/09
--- OUTSIDE RECORDS SUMMARY | 2025-01-08 17:18 | XMS_ITS | Patient Health Summary ---
Author Organization [facility] Address [address] [place] [address] Care Team Providers Care Relay Tester Helper Name Role Phone Kathleen Troncoso MD Unavailable Note from [facility],non-owned Affiliates and Associated Physician Practices is amultiple site organization consisting of ambulatory clinics and hospital sitesin [place], [place] and [place]. This disclosure is being madepursuant to the Care Everywhere program and may not contain all information available regarding this patient. Last updated 18.[facility] Allergies * Amoxicillin(Urticaria,Itching,Swelling) * Cephalosporins(Urticaria,Itching,Swelling) * Omnicef(Urticaria,Itching,Swelling) Medications Be aware that medications may not be up to date on this document. Always verify current medications with the patient. No known medications Immunizations * DTaP VACCINE IM (6wk-6yrs)(Given 03/08/2006, 01/13/2002, 01/14/2001, 2000, 2000) * HEP A PEDS 2 DOSE(Given 03/08/2006) * HEP B VACCINE, PED/ADOL(Given 04/16/2001, 2000, 2000) * HIB BOOSTER(Given 01/13/2002, 01/14/2001, 2000, 2000) * INFLUENZA VACCINE(Given 07/31/2009) * MMR(Given 03/08/2006, 07/12/2001) * PNEUMOCOCCAL CONJ, PEDS(Given 07/12/2001, 01/14/2001, 2000, 2000) * POLIO IPV(Given 03/08/2006, 10/14/2001, 2000, 2000) Social History Tobacco Use Types Packs/Day Years Used Date Smoking Tobacco: Never Assessed Sex and Gender Information Value Date Recorded Sex Assigned at Not on file Gender Identity Not on file Sexual Orientation Not on file Last Filed Vital Signs Vital Sign Reading Time Taken Comments Blood Pressure - - Pulse - - Temperature 37.1 C (98.7 F) 09/13/2011 10:01 AM HEAD OF DIGITAL ADVERTISING & INTEGRATION Respiratory Rate 18 11/16/2010 11:28 AM HEAD OF DIGITAL ADVERTISING & INTEGRATION Oxygen Saturation - - Inhaled Oxygen Concentration - - Weight 38.6 kg (85 lb) 09/13/2011 10:01 AM HEAD OF DIGITAL ADVERTISING & INTEGRATION Height - - Body Mass Index - - Procedures * URINALYSIS - POINT OF CARE(Performed 10/18/2010) Performed for Dysuria * STREP A SCREEN - POINT OF CARE (AMB)(Performed 04/13/2010) Performed for Streptococcal Sore Throat * STREP A SCREEN - POINT OF CARE (AMB)(Performed 02/07/2010) Performed for Streptococcal Sore Throat * CULTURE THROAT(Performed 12/29/2008) Results * URINALYSIS - POINT OF CARE (10/18/2010 4:10 PM HEAD OF DIGITAL ADVERTISING [employer] INTEGRATION) Clarity UA POCT clear Color UA POCT figueroa Leukocyte UA neg Negative Nitrite UA POCT neg Negative Urobilinogen UA POCT 1 0.1 - 1.0 EU/dL Protein UA POCT neg Negative pH UA 6 5.0 - 8.0 pH units Blood UA neg Negtive Specific [place] UA POCT 1.020 1.002 - 1.030 Ketone UA neg Negative Bilirubin UA POCT neg Negative Glucose UA neg Negative Urine specimen (specimen) URINE / Unknown 10/18/2010 4:10 PM HEAD OF D[employer]ITAL ADVERTISING [employer] INTEGRATION Kathleen Troncoso MD LAB - POINT OF CARE ORDERABLES * (ABNORMAL) STREP A SCREEN - POINT OF CARE (AMB) (04/13/2010) Only the most recent of2 resultswithin the time period is included. Strep A Rapid POCT POS NEGATIVE - POSITVE Strep A Internal Control NEGATIVE - POSITIVE ENTIRE THROAT (SURFACE REGION OF NECK) / Unknown Susan Rojas MD LAB - POINT OF CARE ORDERABLES * CULTURE THROAT (12/29/2008 10:00 AM HEAD OF DIGITAL ADVERTISING [employer] INTEGRATION) Culture [facility] Comment: CULTURE, THROAT MICRO NUMBER: [id number] TEST STATUS: FINAL SPECIMEN SOURCE: NOT GIVEN SPECIMEN COMMENTS: ADEQUATE RESULT: GROWTH OF NORMAL OROPHARYNGEAL CHRISTY NO COLLECTION DATE RECEIVED. WE HAVE USED THE DATE THE SPECIMEN WAS RECEIVED BY THIS LABORATORY THE COLLECTION DATE. IF THIS IS INCORRECT, PLEASE CONTACT CLIENT SERVICES. PHONE NUMBER: [phone] Test Performed at: [facility] [address] [address] ISABEL OCHOA MD 12/26/2008 11: 13 PM HEAD OF DIGITAL ADVERTISING [employer] INTEGRATION Kathleen Troncoso MD LAB - MICROBIOLOGY O RDERABLES [employer] [address] [place] [address] Care Teams Relay Tester Helper Relationship Specialty Start Date End Date Kathleen Troncoso MD PCP - Pediatrics 07/31/09
--- OUTSIDE RECORDS SUMMARY | 2025-01-08 17:18 | XMS_ITS | Referral Summary ---
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
--- OUTSIDE RECORDS SUMMARY | 2025-01-08 17:18 | XMS_ITS | Clinical Summary ---
Author Organization [facility] Address [address] [place] [address] Care Team Providers Care High School Music Teacher Name Role Phone Kathleen Troncoso MD Unavailable Source Comments [facility],non-owned Affiliates and Associated Physician Practices is amultiple site organization consisting of ambulatory clinics and hospital sitesin [place], [place], [place] and [place]. This disclosure is being madepursuant to the Care Everywhere program and may not contain all information available regarding this patient. Last updated 18.[facility] Allergies Active Allergy Reactions Criticality Noted Date Comments Amoxicillin Urticaria,Itching,[facility] 09/09/2007 Hives over chest & arms; bilateral ankle swellilng Cephalosporins Urticaria,Itching,[facility] mirela 03/26/2007 Omnicef Urticaria,Itching,[facility] 03/26/2007 Overall hives, Ankle swelling Medications Be [...] 37.1 C (98.7 F) 09/13/2011 10:01 AM PUBLIC AFFAIRS DIRECTOR Respiratory Rate 18 11/16/2010 11:28 AM PUBLIC AFFAIRS DIRECTOR Oxygen Saturation - - Inhaled Oxygen Concentration - - Weight 38.6 kg (85 lb) 09/13/2011 10:01 AM PUBLIC AFFAIRS DIRECTOR Height - - Body Mass Index - - Plan of Treatment Health Maintenance Due Date Last Done Comments DTAP/TDAP/TD VACCINES (6 - Tdap) 2011 03/08/2006, 01/13/2002, 01/14/2001, Additional history exists HIV SCREENING 2015 HPV VACCINE (1 - Male 3-dose series) 2015 HEPATITIS C SCREENING 07/03/2018 COVID-19 VACCINE ( - season) 2024 INFLUENZA VACCINE (#1) 2024 07/31/2009 DEPRESSION SCREENING 10/29/2024 ZOSTER VACCINE (1 of 2) 2050 HEPATITIS B VACCINE Completed 04/16/2001, 2000, 2000 PNEUMOCOCCAL VACCINE Completed 07/12/2001, 01/14/2001, 2000, Additional history exists HIB VACCINE Completed 01/13/2002, 12/27, 2000, Additional history exists MENINGOCOCCAL (Group B) VACCINE SHARED DECISION-MAKING Aged Out No longer eligible based on patient's age to complete this topic MENINGOCOCCAL GROUPS A/C/Y/W VACCINE Aged Out No longer eligible based on patient's age to complete this topic Care Teams High School Music Teacher Relationship Specialty Start Date End Date Kathleen Troncoso MD PCP - Pediatrics 07/31/09
--- OUTSIDE RECORDS SUMMARY | 2025-01-08 17:18 | XMS_ITS | Clinical Summary ---
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 Gender Identity Not on file Sexual Orientation Not on file Plan of Treatment Health Maintenance Due Date Last Done Comments HPV VACCINES (1 - Male 3-dos e series) 2015 DTAP/TDAP/TD VACCINES (1 - Tdap) 2019 HEPATITIS B VACCINES (1 of 3 - 19+ 3-dose series) 2019 INFLUENZA VACCINE (#1) 2024 PNEUMOCOCCAL VACCINE 0-49 YEARS Aged Out No longer eligible based on patient's age to complete this topic Insurance [employer] [facility] OPEN ACCESS [employer] [facility] Care Teams Street Supervisor Relationship Specialty Start Date End Date Brooklyn Monroy MD [address] [place] [address] PCP - General Family Practice 01/03/13
== END 2025-01-08 16:01 | disposition home or self-care (01) ==
PROVIDERS: Emergency Provider Nurse Practitioner; PCP Family Medicine
DX: J06.9 Acute upper respiratory infection, unspecified (principal); R09.82 Postnasal drip
CPT/HCPCS: 99211; G0463

== ENCOUNTER 2025-07-22 14:39 | Emergency (ER) | payer OTHER, SELFPAY ==
--- OUTSIDE RECORDS SUMMARY | 2025-07-22 14:42 | XMS_ITS | Clinical Summary ---
Author Organization [facility] [address] [facility] [address] Address [address] [place] [address] Care Team Providers Care Art Installer Name Role Phone Brooklyn Monroy MD Primary Care Provider [phone] Allergies Active Allergy Reactions Criticality Noted Date [...] on file Legal Sex Male 8:48 AM SR. VENDOR MANAGEMENT ASSOCIATE Gender Identity Not on file Sexual Orientation [...] 11:34 AM CDT Height 180.3 cm (5' 11) 04/19/2023 11:34 AM CDT Body Mass Index [...] Well Visit/Exam 18-64 2018 Influenza Vaccine (#1) 2025 07/31/2009 Hepatitis B Screening Completed 04/16/2001 , 2000, 2000 Pneumococcal vaccine <65 Aged Out No longer eligible based on patient's age to complete this topic Insurance [facility] [id number] Care Teams Art Installer Relationship Specialty Start Date End Date Brooklyn Monroy MD PCP - General Family Medicine 02/25/21
--- OUTSIDE RECORDS SUMMARY | 2025-07-22 14:42 | XMS_ITS | Clinical Summary ---
Author Organization [facility] Address [address] [place] [address] Care Team Providers Care Shellfish Grower Name Role Phone Kathleen Troncoso MD Unavailable Source Comments [facility],non-owned Affiliates and Associated Physician Practices is amultiple site organization consisting of ambulatory clinics and hospital sitesin [place], [place], [place] and [place]. This disclosure is being madepursuant to the Care Everywhere program and may not contain all information available regarding this patient. Last updated 18.[facility] Allergies Active Allergy Reactions Criticality Noted Date Comments Amoxicillin Urticaria,Itching,[facility] 09/09/2007 Hives over chest & arms; bilateral ankle swellilng Cephalosporins Urticaria,Itching,[facility] mirela 03/26/2007 Omnicef Urticaria,Itching,[facility] 03/26/2007 Overall hives, Ankle swelling Medications * Be aware that medications may not be up to date on this document. Alwaysverify current medications with the patient. No known medications Immunizations Immunization Administration Dates Next Due DTaP VACCINE IM [...] at Not on file Legal Sex Male 6:42 AM SECTION LABORER Gender Identity Not on file Sexual Orientation Not on file Last Filed Vital Signs Vital Sign Reading Time Taken Comments Blood Pressure - - Pulse - - Temperature 37.1 C (98.7 F) 09/13/2011 10:01 AM SECTION LABORER Respiratory Rate 18 11/16/2010 11:28 AM SECTION LABORER Oxygen Saturation - - Inhaled Oxygen Concentration - - Weight 38.6 kg (85 lb) 09/13/2011 10:01 AM SECTION LABORER Height - - Body Mass Index - - Plan of Treatment Health Maintenance Due Date Last Done Comments DTAP/TDAP/TD VACCINES (6 - Tdap) 2011 03/08/2006, 01/13/2002, 01/14/2001, Additional history exists HIV SCREENING 2015 HPV VACCINE (1 - Male 3-dose series) 2015 HEPATITIS C SCREENING 07/03/2018 DEPRESSION SCREENING 10/29/2024 COVID-19 VACCINE ( season) 2025 INFLUENZA VACCINE (#1) 2025 07/31/2009 ZOSTER VACCINE (1 of 2) 2050 HEPATITIS [...] patient's age to complete this topic Insurance [employer] [address] [id number] [place] [id number] [facility] [employer] Care Teams Shellfish Grower Relationship Specialty Start Date End Date Kathleen Troncoso MD PCP - Pediatrics 07/31/09
--- OUTSIDE RECORDS SUMMARY | 2025-07-22 14:42 | XMS_ITS | Clinical Summary ---
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 OPEN ACCESS [employer] OPEN ACCESS Care Teams Field Cane Scaler Relationship Specialty Start Date End Date Brooklyn Monroy MD [address] [place] [address] PCP - General Family Practice 01/03/13
[2025-07-22 14:44] VITALS: BP 141/84; PULSE 81; RESP 16; TEMP 36.7; O2SAT 99
--- NOTE | 2025-07-22 14:50 | ED_ITS ---
HPI - URI/Sore Throat General Chief Complaint: Upper Respiratory Infection Stated Complaint: Fever/Sore Throat Time Seen by Provider: 07/22/25 14:50 Source: patient Mode of arrival: ambulatory Limitations: no limitations History of Present Illness HPI Narrative: 25-year-old male presents with complaint of sore throat, nasal congestion, fatigue, headache, sinus pressure for 5 days. Afebrile. Denies nausea vomiting diarrhea. Taking Vivian-[place] with no relief of sore throat. All systems reviewed and negative except as noted above. Related Data Home Medications ?Medication ?Instructions ?Recorded ?Confirmed ?Last Taken ?Type infliximab 100 mg intravenous See Rx Instructions .Rou te .COMPLEX 06/13/21 06/30/25 06/16/25 History solution (Remicade) Allergies Allergy/AdvReac Type Severity Reaction Status Date / Time amoxicillin Allergy Severe Anaphylaxis Verified 07/22/25 14:50 banana Allergy Severe Anaphylaxis Verified 06/30/25 09:25 cefdinir Allergy Severe Anaphylaxis Verified 07/22/25 14:50 [facility] Past Medical History Medical History Crohn's disease Nausea and vomiting in adult Crohn's disease of ileum Chronic GERD Surgical History Surgical History History of colon surgery 10/27/20 Hand assisted laparoscopic ileocecectomy with ileocolic anastomosis Hx of tympanostomy tubes Family History Family History Mother Hypothyroidism Other Asthma Depression Family history of alcoholism Family history of bipolar disorder Family history of thyroid disease Social History Social History Social History: Patient is single no children. He lives with his parents. He desires to have his mom is a durable power personal injury attorney for healthcare. The patient is a full code. Lifelong nonsmoker. No marijuana or illicit drugs. No alcohol use. He works at an [employer]. Smoking status: Never smoker Second hand tobacco smoke exposure: No Alcohol intake: never Substance use: current Substance use type: marijuana Living arrangements: with family Occupation/Education: occupation Gender identity (if verbalized by the patient): Male Sexual Orientation (if Verbalized by the Patient): Straight or Heterosexual Spiritual care concerns: No Comments At time of signature, agree with nursing past medical, surgical, social and family history. There is no relevant family history pertinent to the presenting complaint. Exam Narrative: GENERAL: This is a well-nourished, well-developed patient, in no apparent distress. HEAD: normocephalic, atraumatic. EYES: PERRL. Sclera clear/white. Vision is grossly intact. EARS: External ears normal, auditory canals clear and without drainage, TMs normal without perforation. Hearing grossly intact. NOSE: External nose normal with no obvious nasal discharge, nares without redness, no rhinorrhea. THROAT: Mucous membranes moist, Posterior pharynx erythematous with mild swelling. No exudates. malodorous breath noted NECK: Neck supple, non-tender without lymphadenopathy, masses or thyromegaly. CARDIOVASCULAR: Regular rate and rhythm without murmurs, gallops, or rubs. RESPIRATORY: Clear to auscultation. Breath sounds equal bilaterally. No wheezes, rales, or rhonchi. SKIN: warm, Dry, intact with no suspicious lesions or rash, good texture and turgor. NEURO: awake, alert, and oriented to person, place and time. There were no obvious focal neurologic abnormalities. EXTREMITIES: No joint tenderness, effusion, or edema noted. Course Course Level of Care: Express Care Visit Vital Signs Vital signs: Vital Signs Temperature 36.7 C 07/22/25 14:44 Pulse Rate 81 07/22/25 14:44 Respiratory Rate 16 07/22/25 14:44 Blood Pressure 141/84 H 07/22/25 14:44 Pulse Oximetry 99 07/22/25 14:44 Oxygen Delivery Room Air 07/22/25 14:44 Temperature 36.7 C 07/22/25 14:44 Pulse Rate 81 07/22/25 14:44 Respiratory Rate 16 07/22/25 14:44 Blood Pressure 141/84 H 07/22/25 14:44 Pulse Oximetry 99 07/22/25 14:44 Oxygen Delivery Room Air 07/22/25 14:44 reviewed MDM - URI/Sore Throat MDM Narrative Medical decision making narrative: rapid strep test positive. Will treat with azithromycin due to penicillin allergy. Patient is well-appearing, nontoxic. Differential Diagnosis Differential diagnosis: Likely upper respiratory infection, sinusitis, viral infection, influenza and pharyngitis Lab Data Labs: Lab Results 07/22/25 Range/Units 15:10 POC Influenza A Ag Negative (Negative) POC Influenza B Ag Negative (Negative) POC SARS CoV-2 Ag Negative (Negative) POC Grp A Strep Screen Positive (Negative) Discharge Plan Discharge Clinical Impression: Strep throat Patient Disposition: Home Condition: Stable Instructions: Antibiotic Form, Strep Throat (ED) Additional Instructions: your strep test was positive today. Take antibiotic as prescribed until gone. Change toothbrush after taking antibiotic for 24 hours. Take Tylenol or ibuprofen every 6-8 hours as needed for pain. Drink at least 64 oz water a day. See your primary care physician if symptoms are not improving. Patient Language: [place] Prescriptions: New azithromycin 250 mg tablet See Rx Instructions .ROUTE .COMPLEX Qty: 6 0RF Rx Instructions: For 250 mg dose pack: take 500 mg today (day 1), then 250 mg for 4 days (days 2-5) No Action infliximab [Remicade] 100 mg Recon Soln See Rx Instructions .ROUTE .COMPLEX Patient Comments: ... Rx Instructions: every 2 months Follow-up/Referrals: Brooklyn Monroy MD [Primary Care Provider, Family Practice] Time of Disposition: 15:14
[2025-07-22 15:12] LABS: EDCOVIDSCREEN Negative (Negative); EDINFLUASCREEN Negative (Negative); EDINFLUBSCREEN Negative (Negative); EDSTREPNEGPOS1 Positive (Negative)
== END 2025-07-22 15:19 | disposition home or self-care (01) ==
PROVIDERS: Emergency Provider Nurse Practitioner Family; PCP Family Medicine
DX: J02.0 Streptococcal pharyngitis (principal); Z20.822 Contact with and (suspected) exposure to COVID-19; F12.90 Cannabis use, unspecified, uncomplicated; K50.90 Crohn's disease, unspecified, without complications; K21.9 Gastro-esophageal reflux disease without esophagitis
CPT/HCPCS: 87426; 87804; 87880; 99213; G0463

== ENCOUNTER 2025-08-18 00:57 | Day surgery (SDC) | payer OTHER, SELFPAY ==
[2025-06-30 09:34] VITALS: BMI 23.1
--- NOTE | 2025-08-10 12:36 | PC.NURSE ---
Prior interview for colonoscopy completed 06/30/2025. Pt states no change in health history or medications since prior interview. Pt states he has his prep and the instructions. Reviewed prep instructions with pt and updated with new date/time of procedure.
--- OUTSIDE RECORDS SUMMARY | 2025-08-18 01:00 | XMS_ITS | Clinical Summary ---
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
--- OUTSIDE RECORDS SUMMARY | 2025-08-18 01:00 | XMS_ITS | Clinical Summary ---
Author Organization [facility] Address [address] [place] [address] Care Team Providers Care Truck Headlight Assembler Name Role Phone Kathleen Troncoso MD Unavailable Source Comments [facility],non-owned Affiliates and Associated Physician Practices is amultiple site organization consisting of ambulatory clinics and hospital sitesin [place], [place], [place] and [place]. This disclosure is being madepursuant to the Care Everywhere program and may not contain all information available regarding this patient. Last updated 18.[facility] Allergies Active Allergy Reactions Criticality Noted Date Comments Amoxicillin Urticaria,Itching,[facility] 09/09/2007 Hives over chest & arms; bilateral ankle swellilng Cephalosporins Urticaria,Itching,[facility] mirela 03/26/2007 Omnicef Urticaria,Itching,[facility] 03/26/2007 Overall hives, Ankle swelling Medications * [...] on file Legal Sex Male 6:42 AM COMMERCIAL AIRLINE PILOT Gender Identity Not on file Sexual Orientation Not on file Last Filed Vital Signs Vital Sign Reading Time Taken Comments Blood Pressure - - Pulse - - Temperature 37.1 C (98.7 F) 09/13/2011 10:01 AM COMMERCIAL AIRLINE PILOT Respiratory Rate 18 11/16/2010 11:28 AM COMMERCIAL AIRLINE PILOT Oxygen Saturation - - Inhaled Oxygen Concentration - - Weight 38.6 kg (85 lb) 09/13/2011 10:01 AM COMMERCIAL AIRLINE PILOT Height - - Body Mass Index - [...] patient's age to complete this topic Insurance [employer] [facility] Address: [facility] [id number] [place] [phone] [address] [place] [address] [facility] [address] [facility] [employer] Care Teams Truck Headlight Assembler Relationship Specialty Start Date End Date Kathleen Troncoso MD PCP - Pediatrics 07/31/09
--- OUTSIDE RECORDS SUMMARY | 2025-08-18 01:00 | XMS_ITS | Clinical Summary ---
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
[2025-08-18 12:14] VITALS: BP 117/72; PULSE 68; RESP 18; TEMP 36.4; O2SAT 99
[2025-08-18] MEDS: LACTATED RINGERS 1,000 ML 150 ML IV CONT (12:26)
--- NOTE | 2025-08-18 12:38 | WPDANESEPPF ---
Anes - Initial Pre Proc Eval Procedure: Operation Date: 08/18/25 13:15 Proposed Procedures p Colonoscopy - Norman Ochoa MD Date/Time: 08/18/25 12:38 Surgeon: Norman Ochoa MD Pre Op Diagnosis: Crohn's disease of small intestine with intestinal Patient Data Age: 25 Gender: M Height: 1.8 m Weight: 94.7 kg Last Vital Signs Temp 36.4 C L 08/18/25 12:14 Pulse 68 08/18/25 12:14 Resp 18 08/18/25 12:14 BP 117/72 08/18/25 12:14 Pulse Ox 99 08/18/25 12:14 O2 Del Method Room Air 08/18/25 12:14 Allergies Allergy/AdvReac Type Severity Reaction Status Date / Time amoxicillin Allergy Severe Anaphylaxis Verified 08/18/25 12:13 banana Allergy Severe Anaphylaxis Verified 08/18/25 12:13 cefdinir Allergy Severe Anaphylaxis Verified 08/18/25 12:13 Home Medications ?Medication ?Instructions ?Recorded ?Confirmed ?Type infliximab 100 mg intravenous See Rx Instructions .Route .COMPLEX 06/13/21 08/05/25 History solution (Remicade) Patient hx anesthesia problems: none Family hx anesthesia problems: none Results Review: All pre-operative results and documents have been reviewed as part of the pre-operative evaluation. [facility] Past Medical History Medical History Crohn's disease Nausea and vomiting in adult Crohn's disease of ileum Chronic GERD Surgical History Surgical History History of colon surgery 10/27/20 Hand assisted laparoscopic ileocecectomy with ileocolic anastomosis Hx of tympanostomy tubes Family History Family History Mother Hypothyroidism Other Asthma Depression Family history of alcoholism Family history of bipolar disorder Family history of thyroid disease Social History Social History Social History: Patient is single no children. He lives with his parents. He desires to have his mom is a durable power project management director for healthcare. The patient is a full code. Lifelong nonsmoker. No marijuana or illicit drugs. No alcohol use. He works at an [employer]. Smoking status: Never smoker Second hand tobacco smoke exposure: No Alcohol intake: never Substance use: current Substance use type: marijuana Living arrangements: with family Occupation/Education: occupation Gender identity (if verbalized by the patient): Male Sexual Orientation (if Verbalized by the Patient): Straight or Heterosexual Spiritual care concerns: No Anes - Eval Final PreProcedure Day of Procedure 08/18/25 12:38 Patient weight: overweight Heart: regular rate and rhythm Lungs: clear to auscultation Airway: Mallampati scale class II Neurological: alert and oriented Last oral intake: >/= 8 hours ASA classification: II Emergent: no Anesthetic plan: proceed Anesthesia type and monitoring: general GIVS and standard monitoring Results Review: All pre-operative results and documents have been reviewed as part of the pre-operative evaluation. Informed Consent: The patient's anesthetic plan and its attendant risks and benefits were discussed with the patient/family/POA. Questions were solicited and answers provided to the satisfaction of the patient/family/POA.
--- NOTE | 2025-08-18 13:01 | WPDHPUPDATE1 ---
History and Physical Update Update Date/Time: 08/18/25 13:01 History and Physical has been reviewed, including an updated exam of the patient. There are NO changes in the patient's condition. Risks, benefits, and alternatives have been discussed and questions answered. Patient agrees to proceed with procedure.
[2025-08-18 13:23] VITALS: BP 99/60; PULSE 67; RESP 24; O2SAT 98
[2025-08-18 13:33] VITALS: BP 95/64; PULSE 62; RESP 24; O2SAT 98
[2025-08-18 13:43] VITALS: BP 106/67; PULSE 55; RESP 16; O2SAT 98
[2025-08-18 13:53] VITALS: BP 108/67; PULSE 65; RESP 21; O2SAT 98
== END 2025-08-18 14:02 | disposition home or self-care (01) ==
PROVIDERS: PCP Family Medicine; Referring Provider Internal Medicine Gastroenterology; Visit Provider Internal Medicine Gastroenterology
PROC: 0DJD8ZZ Inspection of Lower Intestinal Tract, Via Natural or Artificial Opening Endoscopic (ICD-10-PCS; CPT 45378; principal; 2025-08-18 13:15)
DX: K50.00 Crohn's disease of small intestine without complications (principal); K21.9 Gastro-esophageal reflux disease without esophagitis; K64.8 Other hemorrhoids; Z98.890 Other specified postprocedural states; Z98.0 Intestinal bypass and anastomosis status; Z90.49 Acquired absence of other specified parts of digestive tract
CPT/HCPCS: 45386; J2003; J2704; J7120

== ENCOUNTER 2025-10-14 10:42 | Emergency (ER) | payer OTHER, SELFPAY ==
[2025-10-14 10:51] VITALS: BP 113/77; PULSE 67; RESP 16; TEMP 36.4; O2SAT 100
--- NOTE | 2025-10-14 11:19 | ED.URI ---
HPI - URI/Sore Throat General Chief Complaint: Upper Respiratory Infection Stated Complaint: Sore Throat Time Seen by Provider: 10/14/25 11:11 Source: patient and RN notes reviewed Mode of arrival: ambulatory Limitations: no limitations History of Present Illness HPI Narrative: 25-year-old male patient with history of Crohn's disease on Remicade, presents today with a 2 day history of sore throat, rhinorrhea, postnasal drip, slight cough. Denies fever or shortness of breath. Currently rates his pain /10 and has been taking Vivian-Nokomis cold and flu with some relief. A few days prior to onset, patient was at a convention with thousands of people. Related Data Home Medications ?Medication ?Instructions ?Recorded ?Confirmed ?Last Taken ?Type infliximab 100 mg intravenous See Rx Instructions .Route .COMPLEX 06/13/21 08/05/25 06/16/25 History solution (Remicade) Allergies Allergy/AdvReac Type Severity Reaction Status Date / Time amoxicillin Allergy Severe Anaphylaxis Verified 10/14/25 10:58 banana Allergy Severe Anaphylaxis Verified 10/14/25 10:58 cefdinir Allergy Severe Anaphylaxis Verified 10/14/25 10:58 PMF Past Medical History Medical History Crohn's disease Nausea and vomiting in adult Crohn's disease of ileum Chronic GERD Surgical History Surgical History History of colon surgery 10/27/20 Hand assisted laparoscopic ileocecectomy with ileocolic anastomosis Hx of tympanostomy tubes Family History Family History Mother Hypothyroidism Other Asthma Depression Family history of alcoholism Family history of bipolar disorder Family history of thyroid disease Social History Social History Social History: Patient is single no children. He lives with his parents. He desires to have his mom is a durable power belt worker for healthcare. The patient is a full code. Lifelong nonsmoker. No marijuana or illicit drugs. No alcohol use. He works at an [employer]. Smoking status: Never smoker Second hand tobacco smoke exposure: No Alcohol intake: never Substance use: current Substance use type: marijuana Living arrangements: with family Occupation/Education: occupation Gender identity (if verbalized by the patient): Male Sexual Orientation (if Verbalized by the Patient): Straight or Heterosexual Spiritual care concerns: No Comments 25-year-old male patient presents today with a 2 day history of sore throat, rhinorrhea, postnasal drip, slight cough. Denies fever or shortness of breath. Currently rates his pain 7/10 and has been taking Vivian-Nokomis cold and flu with some relief. A few days prior to onset, patient was at a convention with thousands of people Exam Narrative: GENERAL: Well-appearing, well-nourished, and in no acute distress. HEAD: Normocephalic, atraumatic. EYES: EOMI. No redness or drainage. Conjunctivae normal. ENT: Mucous membranes pink and moist. Nares clear. No rhinorrhea. TMs normal bilaterally. Throat mildly erythematous with mild edema. Uvula midline. NECK: Normal AROM. Supple. No lymphadenopathy. CHEST: No respiratory distress. Clear to auscultation. HEART: Regular rate and rhythm. No murmur appreciated. EXTREMITIES: Normal range of motion. No edema. SKIN: Warm, dry, no rash. Capillary refill normal. Normal skin turgor. NEURO: No focal deficits. Alert and oriented x3. Gait steady. PSYCH: Normal affect. No signs of depression or anxiety. Course Course Level of Care: Express Care Visit Vital Signs Vital signs: Vital Signs Temperature 97.6 F 10/14/25 10:51 Pulse Rate 67 10/14/25 10:51 Respiratory Rate 16 10/14/25 10:51 Blood Pressure 113/77 10/14/25 10:51 Pulse Oximetry 100 10/14/25 10:51 Oxygen Delivery Room Air 10/14/25 10:51 Temperature 97.6 F 10/14/25 10:51 Pulse Rate 67 10/14/25 10:51 Respiratory Rate 16 10/14/25 10:51 Blood Pressure 113/77 10/14/25 10:51 Pulse Oximetry 100 10/14/25 10:51 Oxygen Delivery Room Air 10/14/25 10:51 Review MDM MDM Narrative Medical decision making narrative: 25-year-old male patient with history of Crohn's disease on Remicade, presents today with a 2 day history of sore throat, rhinorrhea, postnasal drip, slight cough. Denies fever or shortness of breath. Currently rates his pain 7/10 and has been taking Vivian-Nokomis cold and flu with some relief. A few days prior to onset, patient was at a convention with thousands of people. Upon exam, patient has a mildly erythematous and edematous throat, but exam is otherwise normal. COVID-19 negative, influenza negative, rapid strep negative. Strep culture pending. Symptoms likely viral in etiology. Discussed [id number] medication use and duration of illness. No prescription medications indicated at this time. Anticipatory guidance given. Patient agrees with plan. Vital signs stable. Differential Diagnosis Differential Diagnosis: Influenza, COVID-19, URI, strep Lab Data [facility] Lab Attestation statement: I personally reviewed the patient's lab results. Lab results narrative: Influenza negative, COVID negative, rapid strep negative Critical Care Time Critical Care Time Critical Care Time: No Discharge Plan Discharge Clinical Impression: Upper respiratory infection Qualifiers: URI type: unspecified URI Qualified Code(s): J06.9 - Acute upper respiratory infection, unspecified Patient Disposition: Home Condition: Stable Instructions: Upper Respiratory Infection (DC) Additional Instructions: Your COVID-19, influenza, and rapid strep swab were negative today at [facility]. You will be notified in a few days if the culture comes back positive for strep, and appropriate antibiotics will be called in for you at that time. Your symptoms are likely due to a viral illness, which is not treated with antibiotics. Viral symptoms can be present for up to 7-10 days. Take Tylenol for fever or pain. Rest and stay hydrated. Follow up with your PCP in 7 days if symptoms are not improving. Go to the ER immediately if you have any difficulty breathing or swallowing. Patient Language: French Prescriptions: No Action infliximab [Remicade] 100 mg Recon Soln See Rx Instructions .ROUTE .COMPLEX Patient Comments: . Rx Instructions: every 2 months Follow-up/Referrals: PHYSICIAN,TELECOMMUNICATIONS NETWORK ENGINEER [Primary Care Provider, Internal Medicine] Time of Disposition: 11:22
[2025-10-14 12:01] LABS: EDCOVIDSCREEN Negative (Negative); EDINFLUASCREEN Negative (Negative); EDINFLUBSCREEN Negative (Negative); EDSTREPNEGPOS1 Negative (Negative)
--- OUTSIDE RECORDS SUMMARY | 2025-10-14 12:49 | XMS_ITS | Clinical Summary ---
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
--- OUTSIDE RECORDS SUMMARY | 2025-10-14 12:49 | XMS_ITS | Clinical Summary ---
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
--- OUTSIDE RECORDS SUMMARY | 2025-10-14 12:49 | XMS_ITS | Clinical Summary ---
Author Organization [facility] Address [address] [place] [address] Care Team Providers Care Railway Engineer Name Role Phone Kathleen Troncoso MD Unavailable Source Comments [facility],non-owned Affiliates and Associated Physician Practices is amultiple site organization consisting of ambulatory clinics and hospital sitesin [place], [place], [place] and [place]. This disclosure is being madepursuant to the Care Everywhere program and may not contain all information available regarding this patient. Last updated 18.[facility] Allergies Active Allergy Reactions Criticality Noted Date Comments Amoxicillin Urticaria,Itching,[facility] 09/09/2007 Hives over chest & arms; bilateral ankle swellilng Cephalosporins Urticaria,Itching,[facility] mirela 03/26/2007 Omnicef Urticaria,Itching,[facility] 03/26/2007 Overall hives, Ankle swelling Medications * [...] on file Legal Sex Male 6:42 AM A AUXILIARY Gender Identity Not on file Sexual Orientation Not on file Last Filed Vital Signs Vital Sign Reading Time Taken Comments Blood Pressure - - Pulse - - Temperature 37.1 C (98.7 F) 09/13/2011 10:01 AM A AUXILIARY Respiratory Rate 18 11/16/2010 11:28 AM A AUXILIARY Oxygen Saturation - - Inhaled Oxygen Concentration - - Weight 38.6 kg (85 lb) 09/13/2011 10:01 AM A AUXILIARY Height - - Body Mass Index - - Plan of Treatment Health Maintenance Due Date Last Done Comments DTAP/TDAP/TD VACCINES (6 - Tdap) 2011 03/08/2006, 01/13/2002, 01/14/2001, Additional history exists HIV SCREENING 2015 HPV VACCINE (1 - Male 3-dose series) 2015 HEPATITIS C SCREENING 07/03/2018 DEPRESSION SCREENING 10/29/2024 COVID-19 VACCINE ( - season) 2025 INFLUENZA VACCINE (#1) 2025 07/31/2009 [...] patient's age to complete this topic Insurance [facility] [place] [id number] [facility] [place] [id number] [facility] [employer] Care Teams Railway Engineer Relationship Specialty Start Date End Date Kathleen Troncoso MD PCP - Pediatrics 07/31/09
== END 2025-10-14 11:33 | disposition home or self-care (01) ==
PROVIDERS: Emergency Provider Nurse Practitioner
DX: J06.9 Acute upper respiratory infection, unspecified (principal); K50.90 Crohn's disease, unspecified, without complications; F12.90 Cannabis use, unspecified, uncomplicated; K21.9 Gastro-esophageal reflux disease without esophagitis
CPT/HCPCS: 87081; 87426; 87804; 87880; 99213; G0463